=== PATIENT | male | born 1975 | race Caucasian/White ===

== ENCOUNTER 2019-05-14 03:24 | Emergency (ER) | payer BC, OTHER | END 2019-05-14 06:36 | disposition home or self-care (01) | LOC: ER FS 03:24 ==

== ENCOUNTER 2020-12-02 05:03 | Inpatient (IN) | payer BC ==
[~2020-12-02] VITALS: Ht 180.4 cm; Wt 107.6 kg
[2020-12-02] MEDS ORDERED: ASPIRIN 81 MG CHEW (CHILDREN'S ASA) ONE (05:11)
--- NOTE | 2020-12-02 05:14 | ED Chest Pain ---
General Stated Complaint: CHEST PAIN Source: patient (PETER SALGADO MD) History of Present Illness Date Seen by Provider: Dec 02, 2020 Time Seen by Provider: 05:08 Initial Comments 45-year-old male presents with chest pain. He describes the chest pain as a soreness in his left chest wall. Patient reports that started around 3:00 this morning took some Advil and Pepcid. Patient does have a history of high blood pressure and has not taken his blood pressure medicine since Wednesday night because he forgot. He reports that he saw the ornamental iron worker on November 28. They changed his blood pressure medications stopping atenolol and starting Bystolic. They are to have an outpatient stress test scheduled. He is not having nausea vomiting diaphoresis. He has a family history of early heart attack with his father having a heart attack at 48 passing away when he was 52. He had a similar episode of this sort of chest wall pain couple weeks ago, the pain was on and off for couple days and then went away. (SARIKA SMITH DO) Allergies and Home Medications Allergies Coded Allergies: No Known Drug Allergies (Unverified , 05/14/19) Patient Home Medication List Home Medication List Reviewed: Yes (SARIKA SMITH DO) Review of Systems Review of Systems Constitutional: No diaphoresis, No fever, No weakness Respiratory: Denies Cough, Denies Shortness of Air Cardiovascular: Chest Pain; Denies Edema, Denies Irregular Heart Rate, Denies Lightheadedness Gastrointestinal: Denies Abdominal Pain, Denies Nausea, Denies Vomiting Musculoskeletal: back pain Skin: no symptoms reported Psychiatric/Neurological: No Symptoms Reported Endocrine: No Symptoms Reported Hematologic/Lymphatic: No Symptoms Reported (SARIKA SMITH DO) Past Ayxmvhq-Tkewps-Midfrk Hx Past Med/Social Hx: Reviewed Nursing Past Med/Soc Hx (SARIKA SMITH DO) Patient Social History Recent Hopitalizations: No (SARIKA SMITH DO) Seasonal Allergies Seasonal Allergies: No (SARIKA SMITH DO) Past Medical History Surgeries: Yes (Wrist Sx) Respiratory: No Cardiac: Yes Hypertension Neurological: No Genitourinary: No Gastrointestinal: No Musculoskeletal: No Endocrine: Yes Diabetes, Non-Insulin dep HEENT: No Cancer: No Psychosocial: No (SARIKA SMITH DO) Cardiac: Yes High Cholesterol, Hypertension Endocrine: Yes Diabetes, Insulin dep (PETER SALGADO MD) Physical Exam Vital Signs Vital Signs - First Documented 12/02/20 05:04 Temp 35.1 Pulse 93 Resp 23 B/P (MAP) 214/101 (138) Pulse Ox 99 O2 Delivery Room Air (PETER SALGADO MD) Vital Signs Capillary Refill : (SMITH,SARIKA L DO) Height, Weight, BMI Height: 5'11.00" Weight: 220lbs. 0oz. 99.540153dq; BMI Method:Stated General Appearance: No Apparent Distress, Obese Neck: Non Tender Respiratory: Lungs Clear, Normal Breath Sounds, No Accessory Muscle Use Cardiovascular: Regular Rate, Rhythm, No Edema Gastrointestinal: Non Tender, Soft Extremity: Normal Capillary Refill, Normal Inspection Neurologic/Psychiatric: Oriented x3, No Motor/Sensory Deficits, Normal Mood/ Affect, assistant counsel II-XII Norm as Tested Skin: Normal Color, Warm/Dry (SMITH,SARIKA L DO) Progress/Results/Core Measures Results/Orders Lab Results Laboratory Tests Test 12/02/20 05:08 12/02/20 07:27 12/02/20 08:49 Range/Units White Blood Count 7.6 4.3-11.0 10^3/uL Red Blood Count 5.30 4.35-5.85 10^6/uL Hemoglobin 15.7 13.3-17.7 G/DL Hematocrit 44 40-54 % Mean Corpuscular Volume 83 80-99 FL Mean Corpuscular Hemoglobin 30 25-34 PG Mean Corpuscular Hemoglobin Concent 36 32-36 G/DL Red Cell Distribution Width 12.4 10.0-14.5 % Platelet Count 202 130-400 10^3/uL Mean Platelet Volume 10.1 7.4-10.4 FL Immature Granulocyte % (Auto) 1 % Neutrophils (%) (Auto) 53 42-75 % Lymphocytes (%) (Auto) 29 12-44 % Monocytes (%) (Auto) 10 0-12 % Eosinophils (%) (Auto) 6 0-10 % Basophils (%) (Auto) 1 0-10 % Neutrophils # (Auto) 4.0 1.8-7.8 X 10^3 Lymphocytes # (Auto) 2.2 1.0-4.0 X 10^3 Monocytes # (Auto) 0.7 0.0-1.0 X 10^3 Eosinophils # (Auto) 0.5 H 0.0-0.3 10^3/uL Basophils # (Auto) 0.1 0.0-0.1 10^3/uL Immature Granulocyte # (Auto) 0.1 0.0-0.1 10^3/uL Prothrombin Time 11.2 L 12.2-14.7 SEC INR Comment 0.8 0.8-1.4 Activated Partial Thromboplast Time 25 24-35 SEC Sodium Level 135 135-145 MMOL/L Potassium Level 4.0 3.6-5.0 MMOL/L Chloride Level 99 98-107 MMOL/L Carbon Dioxide Level 24 21-32 MMOL/L Anion Gap 12 5-14 MMOL/L Blood Urea Nitrogen 27 H 7-18 MG/DL Creatinine 0.82 0.60-1.30 MG/DL Estimat Glomerular Filtration Rate > 60 BUN/Creatinine Ratio 33 Glucose Level 344 H 70-105 MG/DL Calcium Level 10.2 H 8.5-10.1 MG/DL Corrected Calcium 8.5-10.1 MG/DL Magnesium Level 2.0 1.6-2.4 MG/DL Total Bilirubin 0.5 0.1-1.0 MG/DL Aspartate Amino Transf (AST/SGOT) 22 5-34 U/L Alanine Aminotransferase (ALT/SGPT) 34 0-55 U/L Alkaline Phosphatase 120 40-136 U/L Myoglobin 38.1 10.0-92.0 NG/ML Troponin I < 0.30 < 0.30 <0.30 NG/ML Total Protein 7.4 6.4-8.2 GM/DL Albumin 4.7 H 3.2-4.5 GM/DL Glucometer 256 H 70-110 MG/DL (PETER SALGADO MD) My Orders Orders - PETER SALGADO MD Nitroglycerin Ointment (Nitrobid Ointme (12/02/20 07:20) Morphine Injection (Morphine Injection (12/02/20 08:22) Enoxaparin Injection (Lovenox Injection) (12/02/20 08:22) Metoprolol Succinate (Xl) Tab (Toprol Xl (12/02/20 08:25) Accucheck Stat ONCE (12/02/20 08:36) Insulin (Regular) Human (Novolin R (Per (12/02/20 08:51) (PETER SALGADO MD) Medications Given in ED Current Medications Medications Dose Ordered Sig/Zana Route Start Time Stop Time Status Last Admin Dose Admin Aspirin 324 mg ONCE ONCE PO 12/02/20 05:15 12/02/20 05:17 DC 12/02/20 05:20 324 MG Enalaprilat 2.5 mg ONCE ONCE IV 12/02/20 05:15 12/02/20 05:17 DC 12/02/20 05:20 2.5 MG Metoprolol Tartrate 5 mg ONCE ONCE IV 12/02/20 06:30 12/02/20 06:31 DC 12/02/20 06:21 5 MG Nitroglycerin 0.4 mg UD PRN SL 12/02/20 06:30 12/02/20 09:21 DC 12/02/20 06:21 0.4 MG Orphenadrine Citrate 60 mg ONCE ONCE IV 12/02/20 05:45 12/02/20 05:46 DC 12/02/20 05:40 60 MG (PETER SALGADO MD) Vital Signs/I&O 12/02/20 12/02/20 12/02/20 05:04 05:04 09:15 Temp 35.1 36.1 Pulse 93 82 Resp 23 16 B/P (MAP) 214/101 (138) 161/78 Pulse Ox 99 99 O2 Delivery Room Air Room Air Room Air (PETER SALGADO MD) Progress Progress Note #1: Time: 07:00 Progress Note I assumed care of the patient from Dr. Smith at shift change pending repeat troponin. Pt reports still having intermittent chest pains that are sharp to aching in left chest and aching pain in back and left arm. He has blood pressure that is climbing back up. He reports forgetting to take his medications last night because he fell asleep without taking them. He has had intermittent episodes of pain that prompted his provider to consult Dr. Sanchez with Cardiology from [facility]. Patient has seen him once and is waiting to hear back about further testing and possible stress testing. He is very worried about the recurrent pain episode that woke him up this morning with his family history of cardiac disease in the mid to late 40s. As his blood pressure was over 170 when I was speaking with him I ordered a dose of nitroglycerin paste 1 inch and will see if this helps with his intermittent pain and blood pressure both. Will recheck on patient when the repeat troponin comes back. His telemetry continues to show sinus rhythm without ST elevation or ectopy. Progress Note #2: Time: 08:18 Progress Note Reviewed with patient that his repeat troponin was still <0.3. Pt reports the discomfort in his chest and back were maybe slightly better but he continued to have intermittent pain despite the nitroglycerin. His blood pressures were still fluctuating between 150 and 160s. His telemetry continues to show a sinus rhythm around 80 bpm. He has no ST elevation or ectopy showing on the telemetry monitoring. Discussed options of having him be admitted for further work-up and evaluation with cardiology today versus discharge and having him call Dr. Sanchez and push to have further testing done with him. Patient opted for admit and was okay with being admitted at [facility] for further evaluation and work-up. At 8:[address] Mehta about the patient and he requested an oral beta-suzi to help with blood pressure. At 8:[address] Jules covering for [facility] and she was agreeable with the admission. Will use the chest pain or order such as well as sliding scale insulin order set since he is diabetic and will be n.p.o in anticipation of possible stress test or cardiac testing today. Initially discussed giving 10 units of regular insulin subcu for his elevated glucose however on recheck of his Accu-Chek it was only 256 so I decrease that to 5 units. Pt does report being pain free after Morphine 4 mg IV, lovenox 100 mg subcutaneous. Given Metoprolol XL 50 mg po. Admit to Cardiac step down bed at [facility]. Progress Note #3: Time: 09:15 Progress Note As EMS was here to take patient he reported to them that his pain was a 0.5 out of 10. He refused needing anything for pain. he stated that it was an ache more than a pain. It was in the same area he was having discomfort earlier. Again unclear how much of this is cardiac equivalent with his being diabetic he could have atypical symptoms. I had previously discussed with pt that there are multiple organs and structures in same area that give similar pains to cardiac pain, such as esophageal spasms, stomach and gastritis, liver, gallbladder, pancreas, lungs, chest wall, chest wall lining, aorta. He may need EGD to evaluate for esophagitis/gastritis as well as cardiology evaluation and certainly better glycemic and blood pressure control. monitoring manager still showing sinus rhythm with rate 80. Blood pressure 161/ 78. (PETER SALGADO MD) Initial ECG Impression Date: Dec 02, 2020 Initial ECG Impression Time: 05:07 Initial ECG Rate: 92 Initial ECG Rhythm: Normal Sinus Initial ECG Intervals: Normal Initial ECG Impression: Normal Comment NSR, HR 92. no acute findings (SARIKA SMITH DO) EKG : EKG Time: 06:53 Rate: 78 Rhythm: Normal Sinus ECG Comparisson: Unchanged Comment Sinus rhythm with a heart rate of 78 bpm. [place] interval 211 ms. QT interval 351 ms with a QTc interval of [address] elevation similar to tracing from 5:07 AM which was read as probable early repolarization pattern. (PETER SALGADO MD) Diagnostic Imaging Diagonstic Imaging: Xray Plain Films/CT/US/NM/MRI: chest Comments [facility], [place] NAME: DALLIN LOUIE [employer] REC#: [id number] PT STATUS: REG ER : 1975 PHYSICIAN: SARIKA SMITH DO ADMIT DATE: 12/02/20/ER FS Signed Date of Exam:12/02/20 CHEST 1 VIEW AP/PA ONLY EXAMINATION: Chest radiograph, portable AP view. DATE: 12/02/2020 5:25 AM INDICATION: 45-year-old male, chest pain. COMPARISON: None. FINDINGS: Heart size and mediastinal contours are unremarkable. There is no identified pneumothorax. There is no large pleural effusion. There is no identified focal airspace consolidation. IMPRESSION: No identified acute cardiopulmonary abnormality. Dictated by: Dictated on workstation # [id number] Dict: 12/02/20 0554 Trans: 12/02/20 0555 [id number] Interpreted by: MARY RAMIREZ MD Electronically signed by: MARY RAMIREZ MD 12/02/20 0555 (PETER SALGADO MD) Departure Communication (Admissions) Time/Spoke to Admitting Phy: 08:29 d/w Dr. Jules for [facility] about admit for chest pain and cardiac work up. Dr. Mehta already notified. Will do sliding scale of insulin and give 10 units of regular insulin now while keeping him NPO for possible procedure with cardiology. Time/Spoke to Consulting Phy: 08:23 d/w Dr. Mehta from cardiology to let him know about admit. He requested oral beta suzi of Metoprolol XL since pt has already had aspirin and lovenox and try to remove ntg paste if possible to control blood pressure without it. (PETER SALGADO MD) Impression Primary Impression: Chest pain Qualified Codes: R07.9 - Chest pain, unspecified Additional Impressions: Hypertension Qualified Codes: I10 - Essential (primary) hypertension Type 1 diabetes Qualified Codes: E10.9 - Type 1 diabetes mellitus without complications Disposition: 30 STILL A PATIENT Condition: Stable Admissions Decision to Admit Reason: Admit from ER (General) Decision to Admit/Date: Dec 02, 2020 Time/Decision to Admit Time: 08:29 (PETER SALGADO MD) Departure-Patient Inst. Referrals: KATHY GARCIA (PCP/Family) Primary Care Physician SARIKA SMITH DO Dec 02, 2020 05:13 PETER SALGADO MD Dec 02, 2020 08:34
[2020-12-02] MEDS ORDERED: ENALAPRILAT 1.25 MG/1 ML (VASOTEC) 1 ML VIAL IV ONE (05:15)
[2020-12-02] MEDS ORDERED: ASPIRIN 81 MG CHEW (CHILDREN'S ASA) PO ONE (05:15)
[2020-12-02 05:18] LABS: BASOPHILS # (AUTO) 0.1 10^3/uL (0.0-0.1); BASOPHILS % (AUTO) 1 % (0-10); EOSINOPHILS # (AUTO) 0.5 10^3/uL (0.0-0.3); EOSINOPHILS % (AUTO) 6 % (0-10); HEMATOCRIT 44 % (40-54); HEMOGLOBIN 15.7 G/DL (13.3-17.7); LYMPHOCYTES # (AUTO) 2.2 X 10^3 (1.0-4.0); LYMPHOCYTES % (AUTO) 29 % (12-44); MEAN CORPUSCULAR HEMOGLOBIN 30 PG (25-34); MEAN CORPUSCULAR HGB CONC 36 G/DL (32-36); MEAN CORPUSCULAR VOLUME 83 FL (80-99); MEAN PLATELET VOLUME 10.1 FL (7.4-10.4); MONOCYTES # (AUTO) 0.7 X 10^3 (0.0-1.0); MONOCYTES % (AUTO) 10 % (0-12); NEUTROPHILS % (AUTO) 53 % (42-75); PLATELET COUNT 202 10^3/uL (130-400); WHITE BLOOD COUNT 7.6 10^3/uL (4.3-11.0)
[2020-12-02 05:31] LABS: INR 0.8 (0.8-1.4); PROTHROMBIN TIME PATIENT 11.2 SEC (12.2-14.7)
[2020-12-02 05:36] LABS: BILIRUBIN,TOTAL 0.5 MG/DL (0.1-1.0); BUN/CREATININE RATIO 33; CALCIUM 10.2 MG/DL (8.5-10.1); CARBON DIOXIDE 24 MMOL/L (21-32); CHLORIDE 99 MMOL/L (98-107); CREATININE SERUM 0.82 MG/DL (0.60-1.30); GFR ESTIMATED > 60; GLUCOSE 344 MG/DL (70-105); SODIUM 135 MMOL/L (135-145)
[2020-12-02 05:37] LABS: ALANINE AMINOTRANSFERASE 34 U/L (0-55); ALBUMIN 4.7 GM/DL (3.2-4.5); ALKALINE PHOSPHATASE 120 U/L (40-136); TOTAL PROTEIN 7.4 GM/DL (6.4-8.2)
[2020-12-02] MEDS: ORPHENADRINE 60 MG/2 ML (NORFLEX) AMP (ED ONLY) IM STA ×2 (05:43→05:49)
[2020-12-02] MEDS ORDERED: ORPHENADRINE 60 MG/2 ML (NORFLEX) AMP (ED ONLY) IV ONE (05:45)
--- NOTE | 2020-12-02 05:56 | Diagnostic Imaging Report ---
EXAMINATION: Chest radiograph, portable AP view. DATE: 12/02/2020 5:25 AM INDICATION: 45-year-old male, chest pain. COMPARISON: None. FINDINGS: Heart size and mediastinal contours are unremarkable. There is no identified pneumothorax. There is no large pleural effusion. There is no identified focal airspace consolidation. IMPRESSION: No identified acute cardiopulmonary abnormality. Dictated by: Dictated on workstation # [id number]
[2020-12-02] MEDS ORDERED: meTOprolol 5 MG/5 ML (LOPRESSOR) VIAL IV ONE (06:30)
[2020-12-02] MEDS ORDERED: NITROGLYCERIN 0.4 MG SL TABS BTL 25'S SL PRN ×2 (06:30→11:30)
[2020-12-02] MEDS ORDERED: NITROGLYCERIN 2% OINT 1 GM UNIT DOSE PACKET TOP STA (07:20)
[2020-12-02] MEDS ORDERED: ENOXAPARIN 100 MG/1 ML (LOVENOX) SYR SC STA (08:22)
[2020-12-02] MEDS ORDERED: morphine INJ 10 MG/ML 1ML (SYR OR VIAL) IVP STA ×2 (08:22→09:16)
[2020-12-02] MEDS ORDERED: meTOproloL SUCCINATE 50 MG (TOPROL XL) TAB PO STA (08:25)
[2020-12-02] MEDS ORDERED: inSUlin (REGULAR) HUMAN 1 UNIT/0.01 ML (CHARGE PER UNIT) SC STA ×2 (08:36→08:51)
[2020-12-02] MEDS ORDERED: ONDANSETRON 4 MG/2 ML (SDV) Z0FRAN IVP STA (09:16)
[2020-12-02] MEDS ORDERED: NS IV 1000 ML 1,000 ML IV SCH (10:30)
--- NOTE | 2020-12-02 11:13 | History & Physical-Hospitalist ---
History of Present Illness HPI/Chief Complaint CC: Chest pain HPI: This is a 45yoWM Pt of [facility] who presented to the [facility] with chest pain, he reports it is sub-sternal and radiates into his back. His BP was very elevated and he had a very high sugar of 300 and he forgot to take his BP medication last night. He has risk factors consistent with acute coronary syndrome so cardiology will be consulted. I will go ahead and restart his home medications and risk stratification will be performed by cardiology. Source: patient Exam Limitations: no limitations Date Seen 12/02/20 Time Seen by a Provider: 11:00 Attending Physician Talia Jules DO PCP Regina Rodriguez Referring Physician Date of Admission Dec 02, 2020 at 08:29 Home Medications & Allergies Home Medications Reviewed patient Home Medication Reconciliation performed by pharmacy medication reconciliations restaurant maintenance technician and/or nursing. Patients Allergies have been reviewed. Allergies Allergies Coded Allergies No Known Drug Allergies (Unverified05/14/19) Past Brrkwsz-Lrbejk-Ukeykr Hx Past Med/Social Hx: Reviewed Nursing Past Med/Soc Hx, Reviewed and Corrections made Patient Social History Marrital Status: Employed/Student: employed Alcohol Use: Denies Use Recreational Drug Use: No Smoking Status: Former Smoker 2nd Hand Smoke Exposure: No Recent Foreign Travel: No Contact w/other who traveled: No Recent Hopitalizations: No Recent Infectious Disease Expo: No Immunizations Up To Date Date of Influenza Vaccine: Aug 01, 2020 Seasonal Allergies Seasonal Allergies: No Past Medical History Surgeries: Tonsillectomy Cardiac: High Cholesterol, Hypertension Endocrine: Diabetes, Insulin dep History of Blood Disorders: No Review of Systems Constitutional: see HPI Cardiovascular: chest pain Physical Exam Physical Exam Vital Signs Vital Signs - First Documented 12/02/20 12/02/20 05:04 11:34 Temp 35.1 Pulse 93 Resp 23 B/P (MAP) 214/101 (138) Pulse Ox 99 O2 Delivery Room Air O2 Flow Rate 2.00 Capillary Refill : Less Than 3 Seconds Height, Weight, BMI Height: 5'11.00" Weight: 220lbs. 0oz. 99.719499tj; 33.06 BMI Method:Stated General Appearance: No Apparent Distress, Chronically ill Eyes: Right Eye Normal Inspection, Right Eye PERRL HEENT: PERRL/EOMI, Normal ENT Inspection, Pharynx Normal, Moist Mucous Membranes Neck: Full Range of Motion, Normal Inspection, Non Tender Respiratory: Chest Non Tender, Lungs Clear, Normal Breath Sounds, No Accessory Muscle Use, No Respiratory Distress Cardiovascular: Regular Rate, Rhythm, No Edema, No Gallop, No JVD, No Murmur, Normal Peripheral Pulses Gastrointestinal: Normal Bowel Sounds, No Organomegaly, No Pulsatile Mass, Non Tender, Soft Back: Normal Inspection, No CVA Tenderness, No Vertebral Tenderness Extremity: Normal Capillary Refill, Normal Inspection, Normal Range of Motion, Non Tender, No Calf Tenderness, No Pedal Edema Neurologic/Psychiatric: Alert, Oriented x3, No Motor/Sensory Deficits, Normal Mood/Affect Skin: Normal Color, Warm/Dry Lymphatic: No Adenopathy Results Results/Procedures Labs Laboratory Tests 12/02/20 05:08 12/03/20 05:25 Patient resulted labs reviewed. Assessment/Plan Admission Diagnosis Assessment: Chest pain DM OOC HTN OOC HLP Obesity Former smoker Plan: DM management Cardiology consultation Admission Status: Observation Diagnosis/Problems Diagnosis/Problems (1) Diabetes (2) Chest pain Status: Acute Qualifiers: Chest pain type: unspecified Qualified Codes: R07.9 - Chest pain, unspecified (3) Hypertension Status: Acute Qualifiers: Hypertension type: essential hypertension Qualified Codes: I10 - Essential (primary) hypertension TALIA JULES DO Dec 02, 2020 11:13
[2020-12-02] MEDS ORDERED: morphine INJ 4 MG/ML 1 ML (VIAL/SYRINGE) ONE (11:18)
[2020-12-02] MEDS ORDERED: morphine INJ 4 MG/ML 1 ML (VIAL/SYRINGE) IV PRN (11:30)
[2020-12-02] MEDS ORDERED: ONDANSETRON 4 MG/2 ML (SDV) Z0FRAN IVP PRN (11:30)
[2020-12-02] MEDS: morphine INJ 4 MG/ML 1 ML (VIAL/SYRINGE) IVP PRN (11:30)
[2020-12-02] MEDS: inSUlin ASPART (NovoLOG) 1 UNIT/0.01 ML (CHARGE PER UNIT) SC SCH ×3 (11:30→20:41)
[2020-12-02 11:34] VITALS: BP 122/88
--- NOTE | 2020-12-02 11:58 | Consultation-Cardiology ---
HPI-Cardiology Cardiology Consultation: Date of Consultation 12/02/20 Time Seen by a Provider: 11:20 Date of Admission 12-02-20 Attending Physician Talia Burnett DO Admitting Physician Regina Rodriguez Consulting Physician AMARJIT MEDEIROS HPI: Chief Complaint: Chest pain Mr. Nuno is a 45 yr old male admitted to 512 from the ED with c/o CP. He reports he has had constant left sided, localized chest pain, which radiates through to his back. He describes it as a cramping sensation. He reports it started approx 1 1/2 mos ago. He states it is present all the time unless he is busy and doesn't think about it then its not there. He states this morning he woke up to go to the bathroom. He noticed the chest pain as before. He states he took Ibuprofen and TUMS which did help his symptoms. He took his BP and noted it to be in the 180's systolic. The chest pain was constant and shooting through to his back. He states he went back to bed, but was worried. He recheck his BP and it was in the 170's. He kept checking his BP and it never went below 160 systolic so he came to the ED. He has not been taking his BP meds routinely as ordered. He did not take them this morning. 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 He denies any SOB, diaphoresis, syncope or near syncope this morning. He reports he felt his HR was elevated this morning. Chest pain is reproducible with gentle palpation. He reports he has seen a specifications writer last week, Dr. Sanchez from [facility] and was to have a stress test, however it has not been scheduled yet. Review of Systems-Cardiology Review of Systems Constitutional: No chills, No fever, No malaise Eyes: No vision change Ears/Nose/Throat: No epistaxis, No recent hearing loss, No ulcerations Respiratory: As described under HPI Cardiovascular: As described under HPI Gastrointestinal: No constipation, No diarrhea, No nausea, No vomiting Genitourinary: No dysuria, No hematuria Musculoskeletal: As describe under HPI Skin: No rash on exposed areas, No ulcerations on exposed areas Psychiatric/Neurological: No focal weakness, No syncope Hematologic: No bleeding abnormalities JDN-Hagalw-Dwsper Hx Patient Social History Smoking Status: Former Smoker 2nd Hand Smoke Exposure: No Have you traveled recently?: No Alcohol Use?: Yes Pt feels they are or have been: No Immunizations Up To Date Date of Influenza Vaccine: Aug 01, 2020 Past Medical History PMH As described under Assessment. Family Medical History Family Medical History: He reports his father had a heart attack at age 48. Allergies and Home Medications Allergies Coded Allergies: No Known Drug Allergies (Unverified , 05/14/19) Home Medications Cinnamon Bark 500 Mg Capsule, 500 MG PO DAILY, (Reported) Dapagliflozin Propanediol 10 Mg Tablet, 10 MG PO DAILY, (Reported) Glyburide 5 Mg Tablet, 5 MG PO DAILY, (Reported) LAST FILLED 03-18-2020 #90/90 DAY SUPPLY Insulin Glargine/Lixisenatide 3 Ml Insuln.pen, 30 UNITS SC DAILY, (Reported) Lisinopril/Hydrochlorothiazide 1 Each Tablet, 1 EA PO BID, (Reported) Metformin HCl 1,000 Mg Tablet, 1,000 MG PO BID, (Reported) Multivitamin 1 Each Tablet, 1 EACH PO DAILY, (Reported) Nebivolol HCl 5 Mg Tablet, 5 MG PO HS, (Reported) Pantoprazole Sodium 40 Mg Tablet.dr, 40 MG PO DAILY Prescribed by: TALIA BURNETT on 12/03/201111 Simvastatin 40 Mg Tablet, 40 MG PO HS, (Reported) LAST FILLED 07-14-2020 #90/90 DAY SUPPLY Sucralfate 1 Gm Tablet, 1 GM PO ACHS Prescribed by: TALIA BURNETT on 12/03/201111 Ubidecarenone 100 Mg Capsule, 100 MG PO DAILY, (Reported) Zinc 50 Mg Tablet, 50 MG PO DAILY, (Reported) Physical Exam-Cardiology Physical Exam Vital Signs/I&O 12/03/20 12/03/20 12/03/20 12/03/20 00:10 01:00 03:51 06:41 Temp 36.0 36.2 Pulse 76 67 75 80 Resp 20 20 B/P (MAP) 120/63 (82) 151/81 (104) Pulse Ox 96 95 O2 Delivery Room Air Room Air 12/03/20 12/03/20 08:00 08:00 Pulse 83 Resp 18 B/P (MAP) 173/79 (110) Pulse Ox 99 99 O2 Delivery Room Air 12/03/20 00:00 Intake Total 2045 ml Output Total 1 ml Balance 2044 ml Capillary Refill : Less Than 3 Seconds Constitutional: AAO x 3, well-developed, well-nourished HEENT: PERRL, hearing is well preserved, oral hygience is good Neck: No carotid bruit; carotid pulses are 2 + bilaterally Respiratory: No accessory muscle use, No respiratory distress; chest expansion is symmetric, chest is bilaterally symmetric, lungs clear to auscultation Cardiovascular: regular rate-rhythm; No JVD; S1 and S2 Gastrointestinal: No tender; soft, round Extremities: no lower extremity edema bilateral Neurologic/Psychiatric: grossly intact (moves all extremities) Skin: No rash on exposed areas, No ulcerations on exposed areas Data Review Labs Laboratory Tests 12/02/20 16:31: Glucometer 194H 12/02/20 19:58: Glucometer 225H 12/03/20 05:25: White Blood Count 6.4, Red Blood Count 4.67, Hemoglobin 13.9, Hematocrit 39L, Mean Corpuscular Volume 84, Mean Corpuscular Hemoglobin 30, Mean Corpuscular Hemoglobin Concent 36, Red Cell Distribution Width 12.5, Platelet Count 178, Mean Platelet Volume 10.7, Immature Granulocyte % (Auto) 1, Neutrophils (%) (Auto) 58, Lymphocytes (%) (Auto) 25, Monocytes (%) (Auto) 10, Eosinophils (%) (Auto) 6, Basophils (%) (Auto) 1, Neutrophils # (Auto) 3.7, Lymphocytes # (Auto) 1.6, Monocytes # (Auto) 0.6, Eosinophils # (Auto) 0.4H, Basophils # (Auto) 0.1, Immature Granulocyte # (Auto) 0.0, Sodium Level 137, Potassium Level 4.4, Chloride Level 106, Carbon Dioxide Level 23, Anion Gap 8, Blood Urea Nitrogen 17, Creatinine 0.83, Estimat Glomerular Filtration Rate > 60, BUN/Creatinine Rat io 20, Glucose Level 258H, Calcium Level 8.8, Corrected Calcium 8.9, Total Bilirubin 0.5, Aspartate Amino Transf (AST/SGOT) 27, Alanine Aminotransferase (ALT/SGPT) 42, Alkaline Phosphatase 68, Total Protein 6.1L, Albumin 3.9, Triglycerides Level 255H, Cholesterol Level 146, LDL Cholesterol Direct 69, VLDL Cholesterol 51H, HDL Cholesterol 36L Radiology NAME: DALLIN NUNO MED REC#: [id number] PT STATUS: REG ER : 1975 PHYSICIAN: SARIKA SMITH DO ADMIT DATE: 12/02/20/ER FS Signed Date of Exam:12/02/20 CHEST 1 VIEW AP/PA ONLY EXAMINATION: Chest radiograph, portable AP view. DATE: 12/02/2020 5:25 AM INDICATION: 45-year-old male, chest pain. COMPARISON: None. FINDINGS: Heart size and mediastinal contours are unremarkable. There is no identified pneumothorax. There is no large pleural effusion. There is no identified focal airspace consolidation. IMPRESSION: No identified acute cardiopulmonary abnormality. Dictated by: Dictated on workstation # [id number] Dict: 12/02/20 0554 Trans: 12/02/20 0555 [id number] Interpreted by: MARY RAMIREZ MD Electronically signed by: MARY RAMIREZ MD 12/02/20 0555 ECG Impression ECG Initial ECG Rhythm: Normal Sinus A/P-Cardiology Assessment/Admission Diagnosis Chest pain of undetermined etiology HTN HLD DM 2 Quit smoking 2 yrs ago GERD Discussion and Recomendations Chest pain of undetermined etiology - no evidence of ACS thus far Symptoms with features of musculoskeletal discomfort - advise NSAID tx Continue BB for uncontrolled hypertension Advise MPI to eval perfusion Advise echcardiogram to eval structure and function Monitor lab Further recs will be based on his hospital course We would like to thank medical services for this consult AMARJIT REECE Dec 02, 2020 11:58
[2020-12-02] MEDS ORDERED: IBUPROFEN 600 MG (MOTRIN) TAB PO NR (12:00)
[2020-12-02] MEDS ORDERED: REGADENOSON 0.4 MG/5 ML SYR (LEXISCAN) IV ONE (12:00)
[2020-12-02 14:45] VITALS: BP 150/77
[2020-12-02] MEDS: IBUPROFEN 600 MG (MOTRIN) TAB PO SCH ×2 (15:02→21:38)
[2020-12-02 16:00] VITALS: BP 133/67
[2020-12-02] MEDS ORDERED: INSU3INS2 SC (16:07)
[2020-12-02] MEDS ORDERED: CINN500C2 PO (16:07)
[2020-12-02] MEDS ORDERED: GLBR5T PO (16:07)
[2020-12-02] MEDS ORDERED: MULT-1136 PO (16:07)
[2020-12-02] MEDS ORDERED: LISI1TAB46 PO (16:07)
[2020-12-02] MEDS ORDERED: ZINC50TA58 PO (16:07)
[2020-12-02] MEDS ORDERED: SIMV40TA25 PO (16:07)
[2020-12-02] MEDS ORDERED: DAPA10TA PO (16:07)
[2020-12-02] MEDS ORDERED: METF-399 PO (16:07)
[2020-12-02] MEDS ORDERED: UBID100C17 PO (16:07)
[2020-12-02] MEDS ORDERED: NEBI5TAB8 PO (16:07)
--- NOTE | 2020-12-02 16:08 | NUR ---
SPOKE WITH PT, WENT THRU THE EXT MED HISTORY AND CALLED [facility] TO COMPLETE THE MED REC BYSTOLIC 5MG LAST FILLED 11-28-2019 #90/90DS- GETS FROM [facility] SIMVASTATIN 40MG (LAST FILLED 07-14-2020 #90) AND GLYBURIDE 5MG (LAST FILLED 03-18-2020 #90) ARE BOTH PAST DUE FOR REFILLS- I INCLUDED THE FILL DATE ON THE MED REC OTC MEDS: [employer] CINNAMON COQ10 ZINC
--- NOTE | 2020-12-02 17:03 | NUR ---
Initial visit: pt's family lives on his salary. 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 Furnace Maintenance offered active listening as pt shared concerns, offered gentle guidance for stressors. Pt states his personal jessenia is a source of strength as he engages in prayer about his needs and concerns. No jessenia community at this time. Strong emotional support provided by family.
--- NOTE | 2020-12-02 17:38 | Consultation-Cardiology ---
HPI-Cardiology Cardiology Consultation: Date of Consultation 12/02/20 Time Seen by a Provider: 12:10 Date of Admission Attending Physician Talia Jules DO Admitting Physician Regina Rodriguez Consulting Physician AMOS LOGAN MD, MA, FACP, FACC, FSCAI, CCDS HPI: Chief Complaint: CC: Chest pain HPI Mr. Nuno is a 45 yr old male admitted to 512 from the ED with c/o CP. He reports he has had constant left sided, localized chest pain, which radiates through to his back. He describes it as a cramping sensation. He reports it started approx 1 1/2 mos ago. He states it is present all the time unless he is busy and doesn't think about it then its not there. He states this morning he woke up to go to the bathroom. He noticed the chest pain as before. He states he took Ibuprofen and TUMS which did help his symptoms. He took his BP and noted it to be in the 180's systolic. The chest pain was constant and shooting through to his back. He states he went back to bed, but was worried. He recheck his BP and it was in the 170's. He kept checking his BP and it never went below 160 systolic so he came to the ED. He has not been taking his BP meds routinely as ordered. He did not take them this morning. 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 He denies any SOB, diaphoresis, syncope or near syncope this morning. He reports he felt his HR was elevated this morning. Chest pain is reproducible with gentle palpation. He reports he has seen a gas cutting machine operator last week, Dr. Sanchez from [facility] and was to have a stress test, however it has not been scheduled yet. Review of Systems-Cardiology Review of Systems Constitutional: No chills, No fever, No malaise Eyes: No vision change Ears/Nose/Throat: No epistaxis, No recent hearing loss, No ulcerations Respiratory: As described under HPI Cardiovascular: As described under HPI Gastrointestinal: No constipation, No diarrhea, No nausea, No vomiting Genitourinary: No dysuria, No hematuria Musculoskeletal: As describe under HPI Skin: No rash on exposed areas, No ulcerations on exposed areas Psychiatric/Neurological: No focal weakness, No syncope Hematologic: No bleeding abnormalities FRN-Stenfm-Rnzkkk Hx Patient Social History Smoking Status: Former Smoker 2nd Hand Smoke Exposure: No Have you traveled recently?: No Alcohol Use?: Yes Pt feels they are or have been: No Immunizations Up To Date Date of Influenza Vaccine: Aug 01, 2020 Past Medical History PMH As described under Assessment. Family Medical History Family Medical History: He reports his father had a heart attack at age 48. Allergies and Home Medications Allergies Coded Allergies: No Known Drug Allergies (Unverified , 05/14/19) Home Medications Cinnamon Bark 500 Mg Capsule, 500 MG PO DAILY, (Reported) Dapagliflozin Propanediol 10 Mg Tablet, 10 MG PO DAILY, (Reported) Glyburide 5 Mg Tablet, 5 MG PO DAILY, (Reported) LAST FILLED 03-18-2020 #90/90 DAY SUPPLY Insulin Glargine/Lixisenatide 3 Ml Insuln.pen, 30 UNITS SC DAILY, (Reported) Lisinopril/Hydrochlorothiazide 1 Each Tablet, 1 EA PO BID, (Reported) Metformin HCl 1,000 Mg Tablet, 1,000 MG PO BID, (Reported) Multivitamin 1 Each Tablet, 1 EACH PO DAILY, (Reported) Nebivolol HCl 5 Mg Tablet, 5 MG PO HS, (Reported) Simvastatin 40 Mg Tablet, 40 MG PO HS, (Reported) LAST FILLED 07-14-2020 #90/90 DAY SUPPLY Ubidecarenone 100 Mg Capsule, 100 MG PO DAILY, (Reported) Zinc 50 Mg Tablet, 50 MG PO DAILY, (Reported) Patient Home Medication List Home Medication List Reviewed: Yes Physical Exam-Cardiology Physical Exam Vital Signs/I&O 12/02/20 12/02/20 12/02/20 12/02/20 09:15 11:34 12:15 12:35 Temp 36.1 36.4 Pulse 82 84 79 Resp 16 20 B/P (MAP) 161/78 122/88 (99) Pulse Ox 99 97 O2 Delivery Room Air Nasal Cannula O2 Flow Rate 2.00 12/02/20 12/02/20 14:45 16:00 Temp 36.3 36.7 Pulse 81 78 Resp 18 18 B/P (MAP) 150/77 (101) 133/67 (89) Pulse Ox 98 97 O2 Delivery Room Air Room Air Capillary Refill : Less Than 3 Seconds Constitutional: AAO x 3, well-developed, well-nourished HEENT: PERRL, hearing is well preserved, oral hygience is good Neck: No carotid bruit; carotid pulses are 2 + bilaterally Respiratory: No accessory muscle use, No respiratory distress; chest expansion is symmetric, chest is bilaterally symmetric, lungs clear to auscultation Cardiovascular: regular rate-rhythm; No JVD; S1 and S2 Gastrointestinal: No tender; soft, round Extremities: no lower extremity edema bilateral Neurologic/Psychiatric: oriented x 3, other (moves all limbs equally) Skin: No rash on exposed areas, No ulcerations on exposed areas Data Review Labs Laboratory Tests 12/02/20 05:08: White Blood Count 7.6, Red Blood Count 5.30, Hemoglobin 15.7, Hematocrit 44, Mean Corpuscular Volume 83, Mean Corpuscular Hemoglobin 30, Mean Corpuscular Hemoglobin Concent 36, Red Cell Distribution Width 12.4, Platelet Count 202, Mean Platelet Volume 10.1, Immature Granulocyte % (Auto) 1, Neutrophils (%) (Auto) 53, Lymphocytes (%) (Auto) 29, Monocytes (%) (Auto) 10, Eosinophils (%) (Auto) 6, Basophils (%) (Auto) 1, Neutrophils # (Auto) 4.0, Lymphocytes # (Auto) 2.2, Monocytes # (Auto) 0.7, Eosinophils # (Auto) 0.5H, Basophils # (Auto) 0.1, Immature Granulocyte # (Auto) 0.1, Prothrombin Time 11.2L, INR Comment 0.8, Activated Partial Thromboplast Time 25, Sodium Level 135, Potassium Level 4.0, Chloride Level 99, Carbon Dioxide Level 24, Anion Gap 12, Blood Urea Nitrogen 27H, Creatinine 0.82, Estimat Glomerular Filtration Rate > 60, BUN/Creatinine Ratio 33, Glucose Level 344H, Calcium Level 10.2H, Corrected Calcium , Magnesium Level 2.0, Total Bilirubin 0.5, Aspartate Amino Transf (AST/SGOT) 22, Alanine Aminotransferase (ALT/SGPT) 34, Alkaline Phosphatase 120, Myoglobin 38.1, Troponin I < 0.30, Total Protein 7.4, Albumin 4.7H 12/02/20 07:27: Troponin I < 0.30 12/02/20 08:49: Glucometer 256H 12/02/20 10:41: Glucometer 271H 12/02/20 16:31: Glucometer 194H Laboratory Tests 12/02/20 05:08 A/P-Cardiology Assessment/Admission Diagnosis Chest pain of undetermined etiology HTN HLD DM 2 Quit smoking 2 yrs ago GERD Discussion and Recomendations Chest pain of undetermined etiology - no evidence of ACS thus far Symptoms with features of musculoskeletal discomfort - advise NSAID tx Continue BB for uncontrolled hypertension Advise MPI to eval perfusion Advise echcardiogram to eval structure and function Monitor lab Further recs will be based on his hospital course We would like to thank Medical services for this consult AMOS LOGAN MD FACP FACC CCDS Dec 02, 2020 17:38
[2020-12-02 19:55] VITALS: BP 118/58
[2020-12-02] MEDS: HYDROCHLOROTHIAZIDE 12.5 MG (HCTZ) CAP PO SCH (20:40)
[2020-12-02] MEDS: lisINopril 20 MG (PRINIVIL) TABLET PO SCH (20:40)
[2020-12-02] MEDS: CARVEDILOL 12.5 MG (COREG) TABLET PO SCH (20:40)
[2020-12-02] MEDS ORDERED: SIMvastatin 40 MG (ZOCOR) TAB PO SCH (21:00)
[2020-12-02] MEDS ORDERED: NEBIVOLOL 5 MG TAB (NON-FORMULARY) PO SCH (21:00)
[2020-12-03 00:10] VITALS: BP 120/63
[2020-12-03 03:51] VITALS: BP 151/81
[2020-12-03] MEDS: IBUPROFEN 600 MG (MOTRIN) TAB PO SCH ×2 (05:28→12:30)
[2020-12-03] MEDS: morphine INJ 4 MG/ML 1 ML (VIAL/SYRINGE) IVP PRN ×2 (05:33→10:43)
[2020-12-03 05:56] LABS: BASOPHILS # (AUTO) 0.1 10^3/uL (0.0-0.1); BASOPHILS % (AUTO) 1 % (0-10); EOSINOPHILS # (AUTO) 0.4 10^3/uL (0.0-0.3); EOSINOPHILS % (AUTO) 6 % (0-10); HEMATOCRIT 39 % (40-54); HEMOGLOBIN 13.9 g/dL (13.3-17.7); LYMPHOCYTES # (AUTO) 1.6 10^3/uL (1.0-4.0); LYMPHOCYTES % (AUTO) 25 % (12-44); MEAN CORPUSCULAR HEMOGLOBIN 30 pg (25-34); MEAN CORPUSCULAR HGB CONC 36 g/dL (32-36); MEAN CORPUSCULAR VOLUME 84 fL (80-99); MEAN PLATELET VOLUME 10.7 fL (9.0-12.2); MONOCYTES # (AUTO) 0.6 10^3/uL (0.0-1.0); MONOCYTES % (AUTO) 10 % (0-12); NEUTROPHILS # (AUTO) 3.7 10^3/uL (1.8-7.8); NEUTROPHILS % (AUTO) 58 % (42-75); PLATELET COUNT 178 10^3/uL (130-400); WHITE BLOOD COUNT 6.4 10^3/uL (4.3-11.0)
[2020-12-03 06:03] LABS: CHLORIDE 106 MMOL/L (98-107); POTASSIUM 4.4 MMOL/L (3.6-5.0); SODIUM 137 MMOL/L (135-145)
[2020-12-03 06:04] LABS: ALBUMIN 3.9 GM/DL (3.2-4.5)
[2020-12-03 06:05] LABS: CALCIUM 8.8 MG/DL (8.5-10.1); TRIGLYCERIDES 255 MG/DL (<150); VLDL CHOLESTEROL 51 MG/DL (5-40)
[2020-12-03 06:06] LABS: GLUCOSE 258 MG/DL (70-105); TOTAL PROTEIN 6.1 GM/DL (6.4-8.2)
[2020-12-03 06:07] LABS: CARBON DIOXIDE 23 MMOL/L (21-32)
[2020-12-03 06:08] LABS: BILIRUBIN,TOTAL 0.5 MG/DL (0.1-1.0)
[2020-12-03 06:10] LABS: ALKALINE PHOSPHATASE 68 U/L (40-136); CREATININE SERUM 0.83 MG/DL (0.60-1.30); GFR ESTIMATED > 60
[2020-12-03 06:11] LABS: BUN/CREATININE RATIO 20; CHOLESTEROL 146 MG/DL (< 200)
[2020-12-03 06:12] LABS: HDL CHOLESTEROL 36 MG/DL (40-60)
[2020-12-03 06:13] LABS: ALANINE AMINOTRANSFERASE 42 U/L (0-55)
[2020-12-03] MEDS: inSUlin ASPART (NovoLOG) 1 UNIT/0.01 ML (CHARGE PER UNIT) SC SCH ×2 (06:58→12:32)
[2020-12-03] MEDS ORDERED: glyBURIDE 5 MG (MICRONASE) TAB PO SCH (07:00)
[2020-12-03] MEDS ORDERED: CATHETER FLUSH 10 ML SYR IV PRN (07:45)
[2020-12-03 08:00] VITALS: BP 173/79
[2020-12-03] MEDS ORDERED: REGADENOSON 0.4 MG/5 ML SYR (LEXISCAN) IV ONE (08:46)
[2020-12-03] MEDS ORDERED: CARVEDILOL 12.5 MG (COREG) TABLET PO SCH (09:00)
[2020-12-03] MEDS ORDERED: ASPIRIN E.C. 81 MG (ECOTRIN) TAB PO SCH (09:00)
[2020-12-03] MEDS ORDERED: NON-FORMULARY MEDICATION 1 EA EA (Insulin Glargine/Lixisenatide (Soliqua 100 Unit-33 Mcg/m SC SCH (09:00)
--- NOTE | 2020-12-03 10:33 | NUR ---
Stress test completed at this time, patient back to room 411-1 via w/c.
[2020-12-03] MEDS: CARVEDILOL 12.5 MG (COREG) TABLET PO SCH (10:36)
[2020-12-03] MEDS: lisINopril 20 MG (PRINIVIL) TABLET PO SCH (10:36)
[2020-12-03] MEDS: HYDROCHLOROTHIAZIDE 12.5 MG (HCTZ) CAP PO SCH (10:36)
[2020-12-03] MEDS ORDERED: PANT40TA2 PO (11:12)
[2020-12-03] MEDS ORDERED: SUCR1TAB36 PO (11:12)
[2020-12-03] MEDS ORDERED: PANTOPRAZOLE 40 MG (PROTONIX) TAB PO ONE ×2 (11:15→11:30)
--- NOTE | 2020-12-03 11:32 | Progress Note - Cardiology ---
Cardiology SOAP Progress Note Subjective: No new c/o Continues to c/o chest discomfort reproducible with palpation Objective: I&O/Vital Signs 12/03/20 12/03/20 12/03/20 12/03/20 00:10 01:00 03:51 06:41 Temp 36.0 36.2 Pulse 76 67 75 80 Resp 20 20 B/P (MAP) 120/63 (82) 151/81 (104) Pulse Ox 96 95 O2 Delivery Room Air Room Air 12/03/20 12/03/20 08:00 08:00 Pulse 83 Resp 18 B/P (MAP) 173/79 (110) Pulse Ox 99 99 O2 Delivery Room Air 12/03/20 00:00 Intake Total 2045 ml Output Total 1 ml Balance 2044 ml Weight (Pounds): 220 Weight (Ounces): 0 Weight (Calculated Kilograms): [id number] Constitutional: AAO x 3, well-developed, well-nourished Respiratory: No accessory muscle use, No respiratory distress; chest expansion is symmetric, chest is bilaterally symmetric, lungs clear to auscultation Cardiovascular: regular rate-rhythm; No JVD; S1 and S2 Gastrointestional: No tender; soft, round Extremities: no lower extremity edema bilateral Neurologic/Psychiatric: oriented x 3, other (moves all limbs equally) Skin: No rash on exposed areas, No ulcerations on exposed areas Results/Procedures: Labs Laboratory Tests 12/02/20 16:31: Glucometer 194H 12/02/20 19:58: Glucometer 225H 12/03/20 05:25: White Blood Count 6.4, Red Blood Count 4.67, Hemoglobin 13.9, Hematocrit 39L, Mean Corpuscular Volume 84, Mean Corpuscular Hemoglobin 30, Mean Corpuscular Hemoglobin Concent 36, Red Cell Distribution Width 12.5, Platelet Count 178, Mean Platelet Volume 10.7, Immature Granulocyte % (Auto) 1, Neutrophils (%) (Auto) 58, Lymphocytes (%) (Auto) 25, Monocytes (%) (Auto) 10, Eosinophils (%) (Auto) 6, Basophils (%) (Auto) 1, Neutrophils # (Auto) 3.7, Lymphocytes # (Auto) 1.6, Monocytes # (Auto) 0.6, Eosinophils # (Auto) 0.4H, Basophils # (Auto) 0.1, Immature Granulocyte # (Auto) 0.0, Sodium Level 137, Potassium Level 4.4, Chloride Level 106, Carbon Dioxide Level 23, Anion Gap 8, Blood Urea Nitrogen 17, Creatinine 0.83, Estimat Glomerular Filtration Rate > 60, BUN/Creatinine Ratio 20, Glucose Level 258H, Calcium Level 8.8, Corrected Calcium 8.9, Total Bilirubin 0.5, Aspartate Amino Transf (AST/SGOT) 27, Alanine Aminotransferase (ALT/SGPT) 42, Alkaline Phosphatase 68, Total Protein 6.1L, Albumin 3.9, Triglycerides Level 255H, Cholesterol Level 146, LDL Cholesterol Direct 69, VLDL Cholesterol 51H, HDL Cholesterol 36L Laboratory Tests 12/02/20 05:08 12/03/20 05:25 A/P: Assessment: Chest pain of undetermined etiology Echocardiogram of Dec 02, 2020 showed LVEF 55-60%. LA mildly to mod dilated. PASP 20-30 mmHg HTN HLD DM 2 Quit smoking 2 yrs ago GERD Non-compliant with medications Plan: Chest pain of undetermined etiology - no evidence of ACS thus far Symptoms with features of musculoskeletal discomfort - continue NSAID tx Continue current regimen Add PPI MPI pending Advise compliance with medications and instructions AMARJIT REECE Dec 03, 2020 11:31
[2020-12-03] MEDS ORDERED: KETOROLAC 30 MG/ML VIAL ONE (11:33)
[2020-12-03] MEDS ORDERED: KETOROLAC 30 MG/ML VIAL IVP NR (11:37)
[2020-12-03 12:00] VITALS: BP 167/79
--- NOTE | 2020-12-03 12:48 | NUR ---
"RD ASSESSMENT PMHx: hypercholesterolemia; HTN; DM; PT INTERACTION: Pt was awake and pleasant during nutrition assessment. Pt states current appetite is good. Note pt currently NPO, per chart review. Note prior to going NPO, avg PO intake was 100% meals, per chart review. Pt states following a regular diet at home, and has no issues with chewing/swallowing food. Pt states some recent issues with nausea, and that his last BM was 2/7. Note pt not currently on bowel regimen per chart review. Pt states no recent wt changes. Note unable to determine recent wt hx, per chart review. Pt states current DM management is pretty good. Note unable to determine recent HbA1c, per chart review. Est. kcal needs: [id number] kcal | 15-20 kcal/kg Est. Pro needs: 86-107 g Pro | 0.8-1.0 g Pro/kg PES STATEMENT: Inadequate oral intake (NI-2.1) related to nausea, and NPO status, as evidenced by chart review and pt interview. INTERVENTION: Note pt currently NPO, per chart review. Would recommend diet advancement to consistent CHO diet when medically able and as tolerated. Will continue to follow and reassess as pt needs, intake, and status change. Noris MELENDEZ, MS RD LD [phone] cell"
--- NOTE | 2020-12-03 13:57 | STRESS TEST ---
DATE OF SERVICE: 12/03/2020 RESTING AND POST REGADENOSON TECHNETIUM-99M TETROFOSMIN SPECT CT IMAGING ORDERING PHYSICIAN: Roro Carter APRN PRIMARY PHYSICIAN: Regina Rodriguez APRN ATTENDING PHYSICIAN: Dr. Jules. CLINICAL DIAGNOSIS: Chest discomfort. Baseline images were carried out after injection of 9.99 mCi of technetium-99m Tetrofosmin. This was followed by 0.4 mg regadenoson and 32.7 mCi of technetium-99m Tetrofosmin for stress imaging. The electrocardiogram showed sinus rhythm at baseline and did not change significantly with regadenoson infusion. He has chronic chest discomfort that has been persistent for several days and remained unchanged during the procedure. Overall, he tolerated the procedure well. Review of images at rest and following stress does not indicate any significant perfusion defects consistent with myocardial ischemia or infarction. Some degree of diaphragmatic attenuation is seen both at rest and following regadenoson infusion. Gated images show normal global left ventricular systolic function with normal regional wall motion, including the diaphragmatic wall of the left ventricle. Left ventricular ejection fraction is calculated to be 50%. Left ventricular end diastolic volume is 97 mL. TID is absent (1.01). CONCLUSIONS: 1. No evidence of any significant myocardial ischemia or infarction on this study. 2. Normal regional wall motion. 3. Normal global left ventricular systolic function with a calculated ejection fraction of 50%. Job ID: [id number] DocumentID: [id number] Dictated Date: 12/03/2020 13:31:42 Telemetry Tech Date: 12/03/2020 13:56:44 Dictated By: AMOS LOGAN MD, MA, FACP, FACC,
--- NOTE | 2020-12-03 14:29 | Progress Note - Cardiology ---
Cardiology SOAP Progress Note Subjective: Chest discomfort at before: continuous (now for several weeks), mild to mod, worse with palpation over midchest or left or right parasternal areas No shortness of breath No palp or syncope No swelling Wishes to go home Objective: I&O/Vital Signs 12/03/20 12/03/20 12/03/20 12/03/20 03:51 06:41 08:00 08:00 Temp 36.2 Pulse 75 80 83 Resp 20 18 B/P (MAP) 151/81 (104) 173/79 (110) Pulse Ox 95 99 99 O2 Delivery Room Air Room Air 12/03/20 12:00 Temp 35.8 Pulse 78 Resp 16 B/P (MAP) 167/79 (108) Pulse Ox 99 O2 Delivery Room Air 12/03/20 00:00 Intake Total 2045 ml Output Total 1 ml Balance 2044 ml Weight (Pounds): 220 Weight (Ounces): 0 Weight (Calculated Kilograms): 99.659836 Constitutional: AAO x 3, well-developed, well-nourished Respiratory: No accessory muscle use, No respiratory distress; chest expansion is symmetric, chest is bilaterally symmetric, lungs clear to auscultation Cardiovascular: regular rate-rhythm; No JVD; S1 and S2 Gastrointestional: No tender; soft, round Extremities: no lower extremity edema bilateral Neurologic/Psychiatric: oriented x 3, other (moves all limbs equally) Skin: No rash on exposed areas, No ulcerations on exposed areas Results/Procedures: Labs Laboratory Tests 12/02/20 16:31: Glucometer 194H 12/02/20 19:58: Glucometer 225H 12/03/20 05:25: White Blood Count 6.4, Red Blood Count 4.67, Hemoglobin 13.9, Hematocrit 39L, Mean Corpuscular Volume 84, Mean Corpuscular Hemoglobin 30, Mean Corpuscular Hemoglobin Concent 36, Red Cell Distribution Width 12.5, Platelet Count 178, Mean Platelet Volume 10.7, Immature Granulocyte % (Auto) 1, Neutrophils (%) (Auto) 58, Lymphocytes (%) (Auto) 25, Monocytes (%) (Auto) 10, Eosinophils (%) (Auto) 6, Basophils (%) (Auto) 1, Neutrophils # (Auto) 3.7, Lymphocytes # (Auto) 1.6, Monocytes # (Auto) 0.6, Eosinophils # (Auto) 0.4H, Basophils # (Auto) 0.1, Immature Granulocyte # (Auto) 0.0, Sodium Level 137, Potassium Level 4.4, Chloride Level 106, Carbon Dioxide Level 23, Anion Gap 8, Blood Urea Nitrogen 17, Creatinine 0.83, Estimat Glomerular Filtration Rate > 60, BUN/Creatinine Ratio 20, Glucose Level 258H, Calcium Level 8.8, Corrected Calcium 8.9, Total Bilirubin 0.5, Aspartate Amino Transf (AST/SGOT) 27, Alanine Aminotransferase (ALT/SGPT) 42, Alkaline Phosphatase 68, Total Protein 6.1L, Albumin 3.9, Triglycerides Level 255H, Cholesterol Level 146, LDL Cholesterol Direct 69, VLDL Cholesterol 51H, HDL Cholesterol 36L 12/03/20 11:49: Glucometer 223H Laboratory Tests 12/02/20 05:08 12/03/20 05:25 A/P: Assessment: Chest pain of undetermined etiology, no evidence of ACS Echocardiogram of Dec 02, 2020 showed LVEF 55-60%. LA mildly to mod dilated. PASP 20-30 mmHg MPI of 12/03/20: no ischemia or infarction, LVEF 50% HTN HLD DM 2 Quit smoking 2 yrs ago GERD Non-compliant with medications Plan: Chest pain of undetermined etiology - no evidence of ACS thus far Symptoms with features of musculoskeletal discomfort - continue NSAID tx prn Add PPI Outpt f/u advised Advised w/u for noncardiac causes of cp with his pcp Advised to continue to refrain from smoking AMOS LOGAN MD FACP FAC CCDS Dec 03, 2020 14:29
[2020-12-03 14:50] VITALS: BP 167/79
--- NOTE | 2020-12-03 15:01 | NUR ---
DISCHARGE PLANNING: Pending discharge orders are in so decided to speak with the patient regarding possible needs at home once discharged. He reports that he does not think he will have needs. Pending Stress Test result for definitive discharge.
--- NOTE | 2020-12-04 06:24 | Discharge Summary ---
Discharge Summary Hospital Course Was the Problem List Reviewed?: Yes Problems/Dx: (1) Diabetes (2) Chest pain Status: Acute Qualifiers: Qualified Codes: R07.9 - Chest pain, unspecified (3) Hypertension Status: Acute Qualifiers: Qualified Codes: I10 - Essential (primary) hypertension Hospital Course Date of Admission: Dec 02, 2020 at 08:29 Admission Diagnosis : Family Physician/Provider: Regina Rodriguez Date of Discharge: 12/04/20 Discharge Diagnosis: atypical chest pain with negative EST, reflux, DM OOC, HTN OOC Hospital Course: Hospital Course: Pt had a brief hospital course, he was admitted for chest pain and due to risk factors of diabetes and HTN he was risk stratified by a stress test and cardiology was consulted. Blood sugars required insulin. HTN improved with restarting his home meds and overall stress test revealed no reversible ischemia. He was placed on Protonix and Carafate for any type of esophagus pain causing the chest pain and he will have close follow up with DON Rodriguez in order to further evaluate the need for any other testing. Labs and Pending Lab Test: Laboratory Tests 12/03/20 11:49: Glucometer 223H Home Meds Active Carafate (Sucralfate) 1 Gm Tablet 1 Gm PO ACHS Protonix (Pantoprazole Sodium) 40 Mg Tablet.dr 40 Mg PO DAILY Reported Glyburide 5 Mg Tablet 5 Mg PO DAILY LAST FILLED 03-18-2020 #90/90 DAY SUPPLY Bystolic (Nebivolol HCl) 5 Mg Tablet 5 Mg PO HS Simvastatin 40 Mg Tablet 40 Mg PO HS LAST FILLED 07-14-2020 #90/90 DAY SUPPLY Zinc 50 Mg Tablet 50 Mg PO DAILY Coq-10 (Ubidecarenone) 100 Mg Capsule 100 Mg PO DAILY Cinnamon (Cinnamon Bark) 500 Mg Capsule 500 Mg PO DAILY Multivitamin 1 Each Tablet 1 Each PO DAILY Soliqua 100 Unit-33 Mcg/ml Pen (Insulin Glargine/Lixisenatide) 3 Ml Insuln.pen 30 Units SC DAILY Metformin HCl 1,000 Mg Tablet 1,000 Mg PO BID Farxiga (Dapagliflozin Propanediol) 10 Mg Tablet 10 Mg PO DAILY Lisinopril-Hctz 20-12.5 mg Tab (Lisinopril/Hydrochlorothiazide) 1 Each Tablet 1 Ea PO BID Assessment/Pt Instructions chc 1 week Discharge Planning: <30 minutes discharge planning Discharge Instructions Activity as Tolerated: Yes Discharge Physical Examination Vital Signs Vital Signs Date Time Temp Pulse Resp B/P (MAP) Pulse Ox O2 Delivery O2 Flow Rate FiO2 12/03/20 14:50 35.8 74 16 167/79 99 Room Air 12/02/20 11:34 2.00 General Appearance: No Apparent Distress, WD/WN Respiratory: Chest Non Tender, Lungs Clear, Normal Breath Sounds, No Accessory Muscle Use, No Respiratory Distress Cardiovascular: Regular Rate, Rhythm, No Edema, No Gallop, No JVD, No Murmur, Normal Peripheral Pulses Neurologic/Psychiatric: Alert, Oriented x3, No Motor/Sensory Deficits, Normal Mood/Affect Allergies: Coded Allergies: No Known Drug Allergies (Unverified , 05/14/19) Discharge Summary Date of Admission Dec 02, 2020 at 08:29 Date of Discharge Dec 03, 2020 at 15:05 Discharge Date: Dec 03, 2020 Admission Diagnosis Assessment: Chest pain DM OOC HTN OOC HLP Obesity Former smoker Plan: DM management Cardiology consultation Discharge Diagnosis (1) Diabetes (2) Chest pain Status: Acute Qualifiers: Qualified Codes: R07.9 - Chest pain, unspecified (3) Hypertension Status: Acute Qualifiers: Qualified Codes: I10 - Essential (primary) hypertension LASHA BURNETT DO Dec 04, 2020 06:24
== END 2020-12-03 15:05 | disposition home or self-care (01) | DRG 313 ==
LOC: EDUNIT# 05:03 → ER FS 05:06 → CSD 08:29 → ER FS 09:21 → 4TH 16:40
PROVIDERS: ADMIT Internal Medicine; ATTEND Internal Medicine
DX: R07.89 Other chest pain (principal); E10.65 Type 1 diabetes mellitus with hyperglycemia; Z79.4 Long term (current) use of insulin; I10 Essential (primary) hypertension; E78.00 Pure hypercholesterolemia, unspecified; E78.5 Hyperlipidemia, unspecified; E66.9 Obesity, unspecified; Z68.33 Body mass index [BMI] 33.0-33.9, adult; K21.9 Gastro-esophageal reflux disease without esophagitis; Z87.891 Personal history of nicotine dependence; Z91.14 Patient's other noncompliance with medication regimen; Z82.49 Family history of ischemic heart disease and other diseases of the circulatory system
CPT/HCPCS: 36415; 71045; 78452; 80053; 80061; 82962; 83735; 83874; 84484; 85025; 85610; 85730; 93005; 93017; 93041; 93306

== ENCOUNTER → 2022-05-13 | Outpatient (CLI) | payer BC, SELFPAY ==
[~2022-05-13] MED LIST: CINN500C2 PO; DAPA10TA PO; GLBR5T PO; INSU3INS2 SC; LISI1TAB46 PO; METF-399 PO; MULT-1136 PO; NEBI5TAB8 PO; PANT40TA2 PO; SIMV40TA25 PO; SUCR1TAB36 PO; UBID100C17 PO; ZINC50TA58 PO
--- NOTE | 2022-05-13 16:37 | Diagnostic Imaging Report ---
INDICATION: Family history of heart disease CT coronary calcium score study performed with noncontrast images followed by calculation of coronary calcium score. Dose reduction protocol was used. Raw data images demonstrate no overt mediastinal or hilar adenopathy. There are coronary calcifications of mainly the LAD territory. There is no overt pleural or pericardial fluid. Visualized portions of the aorta are normal in caliber. Visualized portions of the lung bennett are essentially clear, the entirety of the lungs are not included on the study. CT cardiac calcium score show some dense calcification in the LAD territory with a tiny amount of calcification in the right coronary artery. Calcium score for the LAD was 261.1. Calcium score for right coronary artery was 5.1. Calcium score for circumflex and left main coronary artery was 0. IMPRESSION: Overall coronary calcium score of 266.2, compatible with moderate overall plaque burden, the predominance of the calcifications within the LAD territory. Consider further workup as clinically warranted. Dictated by: Dictated on workstation # [id number]
== END ==
LOC: RAD FS 15:29
PROVIDERS: ATTEND Family Medicine
DX: Z82.49 Family history of ischemic heart disease and other diseases of the circulatory system (principal)
CPT/HCPCS: 75571

== ENCOUNTER 2022-10-23 19:21 | Observation (INO) | payer BC, OTHER ==
[~2022-10-23] VITALS: Ht 180.3 cm; Wt 111.9 kg
[2022-10-23 19:35] LABS: BASOPHILS # (AUTO) 0.1 10^3/uL (0.0-0.1); BASOPHILS % (AUTO) 1 % (0-10); EOSINOPHILS # (AUTO) 0.6 10^3/uL (0.0-0.3); EOSINOPHILS % (AUTO) 7 % (0-10); HEMATOCRIT 42 % (40-54); HEMOGLOBIN 14.7 g/dL (13.3-17.7); LYMPHOCYTES # (AUTO) 2.3 10^3/uL (1.0-4.0); LYMPHOCYTES % (AUTO) 27 % (12-44); MEAN CORPUSCULAR HEMOGLOBIN 29 pg (25-34); MEAN CORPUSCULAR HGB CONC 35 g/dL (32-36); MEAN CORPUSCULAR VOLUME 83 fL (80-99); MEAN PLATELET VOLUME 10.5 fL (9.0-12.2); MONOCYTES # (AUTO) 0.8 10^3/uL (0.0-1.0); MONOCYTES % (AUTO) 9 % (0-12); NEUTROPHILS # (AUTO) 4.9 10^3/uL (1.8-7.8); NEUTROPHILS % (AUTO) 56 % (42-75); PLATELET COUNT 197 10^3/uL (130-400); WHITE BLOOD COUNT 8.6 10^3/uL (4.3-11.0)
[2022-10-23] MEDS ORDERED: FAMOTIDINE 20MG/2ML IV (PEPCID) IVP ONE (19:45)
[2022-10-23] MEDS ORDERED: cloNIDine 0.2 MG (CATAPRES) TAB PO ONE (19:45)
[2022-10-23] MEDS ORDERED: ONDANSETRON 4 MG/2 ML (SDV) Z0FRAN IVP ONE ×2 (19:45→22:00)
[2022-10-23 19:53] LABS: BUN/CREATININE RATIO 20; CARBON DIOXIDE 24 MMOL/L (21-32); CHLORIDE 105 MMOL/L (98-107); CREATININE SERUM 1.17 MG/DL (0.60-1.30); GFR ESTIMATED 78; SODIUM 141 MMOL/L (135-145)
[2022-10-23 19:54] LABS: ALANINE AMINOTRANSFERASE 38 U/L (0-55); ALBUMIN 4.1 GM/DL (3.2-4.5); ALKALINE PHOSPHATASE 100 U/L (40-136); BILIRUBIN,TOTAL 0.3 MG/DL (0.1-1.0); CALCIUM 9.3 MG/DL (8.5-10.1); GLUCOSE 265 MG/DL (70-105); TOTAL PROTEIN 6.6 GM/DL (6.4-8.2)
[2022-10-23] MEDS ORDERED: LORazepam INJ 2 MG/ML (ATIVAN) VIAL IVP ONE (20:00)
--- NOTE | 2022-10-23 20:10 | Diagnostic Imaging Report ---
INDICATION: Chest pain COMPARISON: December 02, 2020 TECHNIQUE: Single radiograph of the chest dated 10/23/2022. FINDINGS: The cardiac silhouette is within normal limits in size. No significant pulmonary vascular congestion. Minimal scarring within the left lung base, appearing similar to the prior examination. The lungs otherwise appear clear. No pleural effusion. No pneumothorax. No acute osseous abnormality. IMPRESSION: Stable minimal linear interstitial opacities within the left lung base felt to relate to scarring given stability since 2020. No superimposed acute cardiopulmonary abnormality. Dictated by: Dictated on workstation # [id number]
[2022-10-23] MEDS ORDERED: LABETALOL HCL 20 MG/4 ML VIAL IV ONE (20:30)
[2022-10-23] MEDS ORDERED: LIDOCAINE 2% VISCOUS 15 ML UDC PO ONE (20:30)
[2022-10-23] MEDS ORDERED: ANTACID SUSP 30 ML UDC (MYLANTA) PO ONE (20:30)
[2022-10-23] MEDS ORDERED: ASPIRIN 81 MG CHEW (CHILDREN'S ASA) PO ONE (21:00)
[2022-10-23] MEDS ORDERED: inSUlin (REGULAR) HUMAN 1 UNIT/0.01 ML (CHARGE PER UNIT) SC ONE (21:00)
[2022-10-23] MEDS: NITROGLYCERIN 0.4 MG SL TABS BTL 25'S SL PRN ×3 (21:12→22:00)
--- NOTE | 2022-10-23 22:05 | ED Chest Pain ---
General Chief Complaint: Chest Pain Stated Complaint: CP,IRREGULAR HEARTRATE Nursing Triage Note: Pt complaining of chest pain that started 2 hours ago. Pt describes his pain as burning and states it radiates to his left shoulder. Source: patient Exam Limitations: no limitations History of Present Illness Date Seen by Provider: Oct 23, 2022 Time Seen by Provider: 19:25 Initial Comments Patient is a 47-year-old insulin-dependent diabetic with history of hypertension and GERD who presents with left-sided chest discomfort radiating to his left neck and shoulder and arm starting approximately 2 hours prior to arrival. Patient describes sensation as burning and rates mild to moderate. Pain is not reproduced with movement, deep breathing or exertion. Is not relieved by rest. Patient reports mild nausea but denies abdominal pain. No fever chills sweats. No leg pain or swelling. No back pain. No other acute symptoms or complaints. Patient states he checked his blood pressure was elevated at home and came concerned that his blood pressure appear to be regular. Denies palpitations. No history of CAD, arrhythmia, or valvular heart disease. Blood sugar has been controlled. Cardiac risk factors include hypertension diabetes family history of coronary disease under the age of 50. Patient is a non-smoker. Timing/Duration: other Severity/Quality: other Location: other Radiation: other Activities at Onset: other Prior CP/Workup: other Modifying Factors: improves with other Allergies and Home Medications Allergies Coded Allergies: No Known Drug Allergies (Unverified , 05/14/19) Patient Home Medication List Home Medication List Reviewed: Yes Cinnamon Bark (Cinnamon) 500 Mg Capsule, 500 MG PO DAILY, (Reported) Entered as Reported by: MALIK LEONG on 12/02/201606 Dapagliflozin Propanediol (Farxiga) 10 Mg Tablet, 10 MG PO DAILY, (Reported) Entered as Reported by: MALIK LEONG on 12/02/201606 Glyburide (Glyburide) 5 Mg Tablet, 5 MG PO DAILY, (Reported) Entered as Reported by: MALIK LEONG on 12/02/201606 Insulin Glargine/Lixisenatide (Soliqua 100 Unit-33 Mcg/ml Pen) 3 Ml Insuln.pen, 30 UNITS SC DAILY, (Reported) Entered as Reported by: MALIK LEONG on 12/02/201606 Lisinopril/Hydrochlorothiazide (Lisinopril-Hctz 20-12.5 mg Tab) 1 Each Tablet, 1 EA PO BID, (Reported) Entered as Reported by: MALIK LEONG on 12/02/201606 Metformin HCl (Metformin HCl) 1,000 Mg Tablet, 1,000 MG PO BID, (Reported) Entered as Reported by: MALIK LEONG on 12/02/201606 Multivitamin (Multivitamin) 1 Each Tablet, 1 EACH PO DAILY, (Reported) Entered as Reported by: MALIK LEONG on 12/02/201606 Nebivolol HCl (Bystolic) 5 Mg Tablet, 5 MG PO HS, (Reported) Entered as Reported by: MALIK LEONG on 12/02/201606 Pantoprazole Sodium (Protonix) 40 Mg Tablet.dr, 40 MG PO DAILY Prescribed by: LASHA BURNETT on 12/03/201111 Simvastatin (Simvastatin) 40 Mg Tablet, 40 MG PO HS, (Reported) Entered as Reported by: MALIK LEONG on 12/02/201606 Sucralfate (Carafate) 1 Gm Tablet, 1 GM PO ACHS Prescribed by: LASHA BURNETT on 12/03/201111 Ubidecarenone (Coq-10) 100 Mg Capsule, 100 MG PO DAILY, (Reported) Entered as Reported by: MALIK LEONG on 12/02/201606 Zinc (Zinc) 50 Mg Tablet, 50 MG PO DAILY, (Reported) Entered as Reported by: MALIK LEONG on 12/02/201606 Review of Systems Review of Systems Constitutional: see HPI EENTM: See HPI Respiratory: See HPI Cardiovascular: See HPI Gastrointestinal: See HPI Genitourinary: See HPI Musculoskeletal: see HPI Skin: see HPI Psychiatric/Neurological: See HPI Endocrine: See HPI Hematologic/Lymphatic: See HPI All Other Systems Reviewed Negative Unless Noted: No Past Eisysoq-Vljkvc-Xysect Hx Patient Social History Tobacco Use?: No Use of E-Cig and/or Vaping dev: No Substance use?: No Alcohol Use?: Yes Alcohol Frequency: Once in a while Pt feels they are or have been: No Seasonal Allergies Seasonal Allergies: No Past Medical History Surgeries: Yes (left wrist) Tonsillectomy Respiratory: No Cardiac: Yes High Cholesterol, Hypertension Neurological: No Genitourinary: No Gastrointestinal: No Musculoskeletal: No Endocrine: Yes Diabetes, Insulin dep HEENT: No Cancer: No Psychosocial: No Integumentary: No Blood Disorders: No Physical Exam Vital Signs Vital Signs - First Documented 10/23/22 19:22 Temp 36.6 Pulse 105 Resp 20 B/P (MAP) 186/92 (123) Pulse Ox 100 O2 Delivery Room Air Capillary Refill : Less Than 3 Seconds Height, Weight, BMI Height: 5'11.00" Weight: 220lbs. 0oz. 99.862749zl; 33.06 BMI Method:Stated General Appearance: No Apparent Distress, WD/WN, Anxious HEENT: PERRL/EOMI Neck: Full Range of Motion, Normal Inspection, Supple Respiratory: Lungs Clear, Normal Breath Sounds Cardiovascular: Regular Rate, Rhythm, No Edema Gastrointestinal: Normal Bowel Sounds, Non Tender, Soft Neurologic/Psychiatric: Alert, Oriented x3, No Motor/Sensory Deficits Skin: Normal Color Focused Exam Sepsis Stage: Ruled Out Progress/Results/Core Measures Results/Orders Lab Results Laboratory Tests Test 10/23/22 19:25 10/23/22 21:20 Range/Units White Blood Count 8.6 4.3-11.0 10^3/uL Red Blood Count 5.02 4.30-5.52 10^6/uL Hemoglobin 14.7 13.3-17.7 g/dL Hematocrit 42 40-54 % Mean Corpuscular Volume 83 80-99 fL Mean Corpuscular Hemoglobin 29 25-34 pg Mean Corpuscular Hemoglobin Concent 35 32-36 g/dL Red Cell Distribution Width 12.7 10.0-14.5 % Platelet Count 197 130-400 10^3/uL Mean Platelet Volume 10.5 9.0-12.2 fL Immature Granulocyte % (Auto) 0 % Neutrophils (%) (Auto) 56 42-75 % Lymphocytes (%) (Auto) 27 12-44 % Monocytes (%) (Auto) 9 0-12 % Eosinophils (%) (Auto) 7 0-10 % Basophils (%) (Auto) 1 0-10 % Neutrophils # (Auto) 4.9 1.8-7.8 10^3/uL Lymphocytes # (Auto) 2.3 1.0-4.0 10^3/uL Monocytes # (Auto) 0.8 0.0-1.0 10^3/uL Eosinophils # (Auto) 0.6 H 0.0-0.3 10^3/uL Basophils # (Auto) 0.1 0.0-0.1 10^3/uL Immature Granulocyte # (Auto) 0.0 0.0-0.1 10^3/uL Sodium Level 141 135-145 MMOL/L Potassium Level 4.0 3.6-5.0 MMOL/L Chloride Level 105 98-107 MMOL/L Carbon Dioxide Level 24 21-32 MMOL/L Anion Gap 12 5-14 MMOL/L Blood Urea Nitrogen 23 H 7-18 MG/DL Creatinine 1.17 0.60-1.30 MG/DL Estimat Glomerular Filtration Rate 78 BUN/Creatinine Ratio 20 Glucose Level 265 H 70-105 MG/DL Calcium Level 9.3 8.5-10.1 MG/DL Corrected Calcium 9.2 8.5-10.1 MG/DL Total Bilirubin 0.3 0.1-1.0 MG/DL Aspartate Amino Transf (AST/SGOT) 24 5-34 U/L Alanine Aminotransferase (ALT/SGPT) 38 0-55 U/L Alkaline Phosphatase 100 40-136 U/L Troponin I < 0.30 < 0.30 <0.30 NG/ML Total Protein 6.6 6.4-8.2 GM/DL Albumin 4.1 3.2-4.5 GM/DL My Orders Orders - RENEE LEBRON DO Cbc With Automated Diff (10/23/22 19:29) Comprehensive Metabolic Panel (10/23/22 19:29) Troponin I Fs (10/23/22 19:29) Ekg Tracing (10/23/22 19:29) Chest 1 View Ap/Pa Only (10/23/22 19:29) Ed Iv/Invasive Line Start (10/23/22 19:32) Famotidine Injection (Pepcid Injection) (10/23/22 19:45) Ondansetron Injection (Zofran Injectio (10/23/22 19:45) Clonidine Tablet (Catapres Tablet) (10/23/22 19:45) Lorazepam Injection (Ativan Injection) (10/23/22 20:00) Labetalol Injection (Normodyne Injection (10/23/22 20:30) Lidocaine 2% Viscous 15 Ml (Xylocaine Vi (10/23/22 20:30) Antacid Suspension (Mylanta Suspension (10/23/22 20:30) Troponin I Fs (10/23/22 20:48) Aspirin Chewable Tablet (Baby Aspirin Ch (10/23/22 21:00) Nitroglycerin 0.4 Mg Btl 25's (Nitrostat (10/23/22 21:00) Insulin (Regular) Human (Novolin R (Per (10/23/22 21:00) Ed Admission (Communication) (10/23/22 21:06) Fentanyl Inj (Sublimaze Injection) (10/23/22 22:00) Ondansetron Injection (Zofran Injectio (10/23/22 22:00) Medications Given in ED Current Medications Medications Dose Ordered Sig/Zana Route Start Time Stop Time Status Last Admin Dose Admin Al Hydrox/Mg Hydrox/Simethicone 30 ml ONCE ONCE PO 10/23/22 20:30 10/23/22 20:32 DC 10/23/22 20:41 30 ML Aspirin 324 mg ONCE ONCE PO 10/23/22 21:00 10/23/22 21:01 DC 10/23/22 20:56 324 MG Clonidine HCl 0.2 mg ONCE ONCE PO 10/23/22 19:45 10/23/22 19:46 DC 10/23/22 19:46 0.2 MG Famotidine 20 mg ONCE ONCE IVP 10/23/22 19:45 10/23/22 19:46 DC 10/23/22 19:46 20 MG Insulin Human Regular 12 unit ONCE ONCE SC 10/23/22 21:00 10/23/22 21:01 DC 10/23/22 21:05 12 UNIT Labetalol HCl 20 mg ONCE ONCE IV 10/23/22 20:30 10/23/22 20:32 DC 10/23/22 20:41 20 MG Lidocaine HCl 15 ml ONCE ONCE PO 10/23/22 20:30 10/23/22 20:32 DC 10/23/22 20:42 15 ML Lorazepam 1 mg ONCE ONCE IVP 10/23/22 20:00 10/23/22 20:01 DC 10/23/22 20:11 1 MG Nitroglycerin 1 TAB Q 5 MIN X 3 NEEDED PRN SL 10/23/22 21:00 10/23/22 21:24 0.4 MG Ondansetron HCl 4 mg ONCE ONCE IVP 10/23/22 19:45 10/23/22 19:46 DC 10/23/22 19:46 4 MG Vital Signs/I&O 10/23/22 19:22 Temp 36.6 Pulse 105 Resp 20 B/P (MAP) 186/92 (123) Pulse Ox 100 O2 Delivery Room Air Blood Pressure Mean: 123 Departure Communication (Admissions) Chest x-ray: No acute cardiopulmonary disease on preliminary ED review EKG: Sinus rhythm, rate 77, no acute ST-T wave changes. Moderate intraventricular conduction delay. Patient with atypical chest pain at rest in the setting of accelerated hypertension. EKG and initial lab nondiagnostic nondiagnostic. Clonidine and labetalol given persistent elevation of blood pressure. Pepcid, Ativan and GI cocktail given with no improvement of chest discomfort. Nitroglycerin x3 given with complete resolution of symptoms. Blood pressure improved. Repeat troponin is negative. Case discussed with Dr. Clay on-call for cardiology agrees to see the patient consult oral. Recommendations for cardiac stepdown, nitroglycerin drip as needed and hospitalist admission. Dr. Burnett accepts care of patient. Impression Primary Impression: Chest pain Additional Impression: Labile hypertension Disposition: ADMITTED INPATIENT Condition: Stable Admissions Decision to Admit Reason: Admit from ER (General) Decision to Admit/Date: Oct 23, 2022 Time/Decision to Admit Time: 21:00 Transfer Method of Transfer: EMS Departure-Patient Inst. Referrals: CATINA CHEW MD (PCP/Family) Primary Care Physician RENEE LEBRON DO Oct 23, 2022 22:05
[2022-10-23] MEDS: fentaNYL INJ 100 MCG/2 ML AMP IVP PRN (22:14)
[2022-10-23 23:15] VITALS: BP 139/80
[2022-10-23 23:45] VITALS: BP 134/81
[2022-10-23] MEDS ORDERED: ONDANSETRON 4 MG (ZOFRAN) ORAL DISSOLVE TAB PO PRN (23:45)
[2022-10-23] MEDS ORDERED: ANTACID SUSP 30 ML UDC (MYLANTA) PO PRN (23:45)
[2022-10-23] MEDS ORDERED: diphenhydrAMINE 50 MG/ML INJ (BENADRYL) IVP PRN (23:45)
[2022-10-23] MEDS ORDERED: polyethylene glycoL POWDER 17 GM (MIRALAX) PACK PO PRN (23:45)
[2022-10-23] MEDS ORDERED: cloNIDine 0.1 MG (CATAPRES) TAB PO PRN (23:45)
[2022-10-23] MEDS ORDERED: ALPRAZolam 0.5 MG (XANAX) TAB PO PRN (23:45)
[2022-10-23] MEDS ORDERED: diphenhydrAMINE 25 MG TAB (BENADRYL) PO PRN (23:45)
[2022-10-23] MEDS ORDERED: hydrALAZINE (APESOLINE) 20 MG/ML VIAL IV PRN (23:45)
[2022-10-23] MEDS ORDERED: BISACODYL 10 MG SUPP (DULCOLAX) PR PRN (23:45)
[2022-10-23] MEDS ORDERED: ONDANSETRON 4 MG/2 ML (SDV) Z0FRAN IV PRN (23:45)
[2022-10-23] MEDS ORDERED: NS IV 500 ML 500 ML IV PRN (23:45)
[2022-10-23] MEDS ORDERED: MELATONIN 3 MG TABLET PO PRN (23:45)
[2022-10-23] MEDS ORDERED: ACETAMINOPHEN 325 MG TABLET PO PRN (23:45)
[2022-10-23 23:54] VITALS: BP 186/92
[2022-10-24] VITALS (14 sets, daily range): BP systolic 125–161; BP diastolic 66–94
[2022-10-24] MEDS ORDERED: RT-ALBUTEROL SULF 2.5 MG/3 ML PRE-MIX VIAL INH PRN
[2022-10-24] MEDS: NITRO DRIP 25000 MCG/D5W 250 ML IV SCH ×2 (00:54→23:45)
[2022-10-24] MEDS: ENOXAPARIN 40 MG/0.4 ML (LOVENOX) SYR SC SCH ×2 (01:31→20:22)
[2022-10-24] MEDS ORDERED: inSUlin ASPART (NovoLOG) 1 UNIT/0.01 ML (CHARGE PER UNIT) ONE (01:35)
[2022-10-24] MEDS: inSUlin ASPART (NovoLOG) 1 UNIT/0.01 ML (CHARGE PER UNIT) SC SCH ×5 (01:36→21:18)
[2022-10-24 03:46] LABS: BASOPHILS # (AUTO) 0.1 10^3/uL (0.0-0.1); BASOPHILS % (AUTO) 1 % (0-10); EOSINOPHILS # (AUTO) 0.4 10^3/uL (0.0-0.3); EOSINOPHILS % (AUTO) 6 % (0-10); HEMATOCRIT 37 % (40-54); HEMOGLOBIN 13.2 g/dL (13.3-17.7); LYMPHOCYTES # (AUTO) 1.7 10^3/uL (1.0-4.0); LYMPHOCYTES % (AUTO) 27 % (12-44); MEAN CORPUSCULAR HEMOGLOBIN 30 pg (25-34); MEAN CORPUSCULAR HGB CONC 36 g/dL (32-36); MEAN CORPUSCULAR VOLUME 84 fL (80-99); MEAN PLATELET VOLUME 10.6 fL (9.0-12.2); MONOCYTES # (AUTO) 0.6 10^3/uL (0.0-1.0); MONOCYTES % (AUTO) 10 % (0-12); NEUTROPHILS # (AUTO) 3.4 10^3/uL (1.8-7.8); NEUTROPHILS % (AUTO) 56 % (42-75); PLATELET COUNT 156 10^3/uL (130-400); WHITE BLOOD COUNT 6.2 10^3/uL (4.3-11.0)
[2022-10-24 04:02] LABS: PHOSPHORUS 2.9 MG/DL (2.3-4.7)
[2022-10-24 04:04] LABS: MAGNESIUM 2.4 MG/DL (1.6-2.4)
[2022-10-24 04:20] LABS: ALBUMIN 3.7 GM/DL (3.2-4.5); CHLORIDE 109 MMOL/L (98-107); POTASSIUM 4.1 MMOL/L (3.6-5.0); SODIUM 139 MMOL/L (135-145)
[2022-10-24 04:21] LABS: CALCIUM 8.8 MG/DL (8.5-10.1)
[2022-10-24 04:22] LABS: TRIGLYCERIDES 290 MG/DL (<150); VLDL CHOLESTEROL 58 MG/DL (5-40)
[2022-10-24 04:23] LABS: GLUCOSE 274 MG/DL (70-105); TOTAL PROTEIN 5.8 GM/DL (6.4-8.2)
[2022-10-24 04:24] LABS: BILIRUBIN,TOTAL 0.3 MG/DL (0.1-1.0); CARBON DIOXIDE 21 MMOL/L (21-32)
[2022-10-24 04:26] LABS: ALKALINE PHOSPHATASE 73 U/L (40-136); GFR ESTIMATED 84
[2022-10-24 04:27] LABS: CHOLESTEROL 109 MG/DL (< 200)
[2022-10-24 04:28] LABS: BUN/CREATININE RATIO 22; HDL CHOLESTEROL 32 MG/DL (40-60)
[2022-10-24 04:29] LABS: ALANINE AMINOTRANSFERASE 32 U/L (0-55)
[2022-10-24] MEDS: KCL 20 MEQ TAB (K-DUR) PO SCH (04:37)
[2022-10-24] MEDS: POTASSIUM CL 10MEQ/50ML IVPB 50 ML IV SCH (04:37)
[2022-10-24] MEDS: MAGNESIUM 1 GM/100 ML IVPB 100 ML IV SCH (04:37)
--- NOTE | 2022-10-24 05:17 | Short Stay Summary-Hospitalist ---
History of Present Illness HPI/Chief Complaint Chief complaint: Chest pain HPI: This is a 47-year-old male clinic patient of [facility] who presented to [place] ER with chest pain. Blood pressure was severely elevated. He was given multiple medications and nitroglycerin drip was ordered but not needed last night. Still reports some vague chest pain. Cardiology has been consulted. Source: patient Exam Limitations: no limitations Date Seen 10/24/22 Time Seen by a Provider: 05:15 Attending Physician Robin Martinez MD PCP Admitting Physician: Talia Jules DO Attending Physician: Talia Jules DO Referring Physician Date of Admission Oct 23, 2022 at 23:19 Home Medications & Allergies Home Medications Reviewed patient Home Medication Reconciliation performed by pharmacy medication reconciliations physical therapist technician and/or nursing. Patients Allergies have been reviewed. Allergies Allergies Coded Allergies No Known Drug Allergies (Unverified05/14/19) Past Ixlyhtk-Euwbvk-Tmezic Hx Patient Social History Tobacco Use?: No Smoking Status: Former Smoker Use of E-Cig and/or Vaping dev: No Substance use?: No Alcohol Use?: No Alcohol Frequency: Once in a while Pt feels they are or have been: No Immunizations Up To Date Date of Influenza Vaccine: Jul 25, 2022 Tetanus Booster (TDap): More Than 5 Years Hepatitis A: No Hepatitis B: Yes Seasonal Allergies Seasonal Allergies: No Current Status Advance Directives: No Communicates: Verbally Primary Language: Luxembourger Preferred Spoken Language: Luxembourger Is interpretation needed?: No Sensory deficits: Vision impairment Past Medical History Surgeries: Tonsillectomy High Cholesterol, Hypertension Diabetes, Insulin dep Blood Disorders: No Review of Systems Constitutional: see HPI Cardiovascular: chest pain Physical Exam Physical Exam Vital Signs Vital Signs - First Documented 10/23/22 10/23/22 19:22 23:54 Temp 36.6 Pulse 105 Resp 20 B/P (MAP) 186/92 (123) Pulse Ox 100 O2 Delivery Room Air FiO2 21 Capillary Refill : Less Than 3 Seconds Height, Weight, BMI Height: 5'11.00" Weight: 220lbs. 0oz. 99.145944bc; 35.00 BMI Method:Stated General Appearance: No Apparent Distress, WD/WN, Anxious HEENT: PERRL/EOMI Neck: Full Range of Motion, Normal Inspection, Supple Respiratory: Lungs Clear, Normal Breath Sounds Cardiovascular: Regular Rate, Rhythm, No Edema Gastrointestinal: Normal Bowel Sounds, Non Tender, Soft Neurologic/Psychiatric: Alert, Oriented x3, No Motor/Sensory Deficits Skin: Normal Color Results Results/Procedures Labs Laboratory Tests 10/23/22 19:25 10/24/22 03:35 Patient resulted labs reviewed. Short Stay Diagnosis Discharge Diagnosis-Short Stay Admission Diagnosis Chest pain Hypertensive urgency Diabetes Final Discharge Diagnosis Chest pain Hypertensive urgency Diabetes Conclusion Plan Cardiology consult monitor blood pressure TALIA JULES DO Oct 24, 2022 05:17
[2022-10-24] MEDS: DOCUSATE SODIUM 100 MG (COLACE) CAP PO SCH ×2 (07:50→20:22)
[2022-10-24] MEDS: HYDROmorphone 2 MG/ML VIAL (DILAUDID) IV PRN ×2 (07:53→10:16)
[2022-10-24] MEDS ORDERED: ASPIRIN 81 MG CHEW (CHILDREN'S ASA) PO SCH (09:00)
--- NOTE | 2022-10-24 11:06 | Consultation-Cardiology ---
HPI-Cardiology Cardiology Consultation Date of Consultation 10/24/22 Date of Admission Time Seen by Provider: 11:02 Indication: Chest pain HPI 47-year-old gentleman with history of hypertension, elevated calcium score. Patient has been having chest pain on and off for few years, had a normal stress test in 2020. Started to have chest pain, dull in nature in the retrosternal area and left side of his chest radiating to the left arm associated with numbness on his left arm. Came into the emergency room, reported some improvement, this morning started to have chest pain again. On my evaluation he was having active chest discomfort, 4-5 over 10 in intensity. Home Medications & Allergies Allergies: Coded Allergies: No Known Drug Allergies (Unverified , 05/14/19) Home Medication List Reviewed: Yes [id number] Hx Patient Social History Smoking Status: Former Smoker 2nd Hand Smoke Exposure: No Recent Hopitalizations: No Have you traveled recently?: No Alcohol Use?: No Immunizations Up To Date Date of Influenza Vaccine: Jul 25, 2022 Past Medical History Discussed below Family Medical History Significant Family History: Heart Disease Family Medical Hx Family history of heart disease Review of Systems-General Review of Systems Constitutional: see HPI EENTM: see HPI, no symptoms reported Respiratory: no symptoms reported, see HPI Cardiovascular: see HPI, chest pain; No edema, No Hx of Intervention, No palpitations, No syncope, No vascular heart diseas, No other Gastrointestinal: no symptoms reported, see HPI Genitourinary: no symptoms reported, see HPI Musculoskeletal: see HPI Skin: see HPI Psychiatric/Neurological: See HPI All Other Systems Reviewed Negative Unless Noted: No Reviewed Test Results Reviewed Test Results Lab Laboratory Tests Test 10/23/22 19:25 10/23/22 21:20 10/24/22 03:35 Range/Units White Blood Count 8.6 6.2 4.3-11.0 10^3/uL Red Blood Count 5.02 4.43 4.30-5.52 10^6/uL Hemoglobin 14.7 13.2 L 13.3-17.7 g/dL Hematocrit 42 37 L 40-54 % Mean Corpuscular Volume 83 84 80-99 fL Mean Corpuscular Hemoglobin 29 30 25-34 pg Mean Corpuscular Hemoglobin Concent 35 36 32-36 g/dL Red Cell Distribution Width 12.7 12.8 10.0-14.5 % Platelet Count 197 156 130-400 10^3/uL Mean Platelet Volume 10.5 10.6 9.0-12.2 fL Immature Granulocyte % (Auto) 0 0 % Neutrophils (%) (Auto) 56 56 42-75 % Lymphocytes (%) (Auto) 27 27 12-44 % Monocytes (%) (Auto) 9 10 0-12 % Eosinophils (%) (Auto) 7 6 0-10 % Basophils (%) (Auto) 1 1 0-10 % Neutrophils # (Auto) 4.9 3.4 1.8-7.8 10^3/uL Lymphocytes # (Auto) 2.3 1.7 1.0-4.0 10^3/uL Monocytes # (Auto) 0.8 0.6 0.0-1.0 10^3/uL Eosinophils # (Auto) 0.6 H 0.4 H 0.0-0.3 10^3/uL Basophils # (Auto) 0.1 0.1 0.0-0.1 10^3/uL Immature Granulocyte # (Auto) 0.0 0.0 0.0-0.1 10^3/uL Sodium Level 141 139 135-145 MMOL/L Potassium Level 4.0 4.1 3.6-5.0 MMOL/L Chloride Level 105 109 H 98-107 MMOL/L Carbon Dioxide Level 24 21 21-32 MMOL/L Anion Gap 12 9 5-14 MMOL/L Blood Urea Nitrogen 23 H 24 H 7-18 MG/DL Creatinine 1.17 1.10 0.60-1.30 MG/DL Estimat Glomerular Filtration Rate 78 84 BUN/Creatinine Ratio 20 22 Glucose Level 265 H 274 H 70-105 MG/DL Calcium Level 9.3 8.8 8.5-10.1 MG/DL Corrected Calcium 9.2 9.0 8.5-10.1 MG/DL Total Bilirubin 0.3 0.3 0.1-1.0 MG/DL Aspartate Amino Transf (AST/SGOT) 24 18 5-34 U/L Alanine Aminotransferase (ALT/SGPT) 38 32 0-55 U/L Alkaline Phosphatase 100 73 40-136 U/L Troponin I < 0.30 < 0.30 < 0.028 <0.028 NG/ML Total Protein 6.6 5.8 L 6.4-8.2 GM/DL Albumin 4.1 3.7 3.2-4.5 GM/DL Phosphorus Level 2.9 2.3-4.7 MG/DL Magnesium Level 2.4 1.6-2.4 MG/DL Triglycerides Level 290 H <150 MG/DL Cholesterol Level 109 < 200 MG/DL LDL Cholesterol Direct 41 1-129 MG/DL VLDL Cholesterol 58 H 5-40 MG/DL HDL Cholesterol 32 L 40-60 MG/DL Physical Exam Physical Exam Vital Signs Vital Signs - First Documented 10/23/22 10/23/22 19:22 23:54 Temp 36.6 Pulse 105 Resp 20 B/P (MAP) 186/92 (123) Pulse Ox 100 O2 Delivery Room Air FiO2 21 Capillary Refill : Less Than 3 Seconds Height, Weight, BMI Height: 5'11.00" Weight: 220lbs. 0oz. [id number]; 35.00 BMI Method:Stated General Appearance: No Apparent Distress, WD/WN, Anxious Eyes: Bilateral Eye Normal Inspection, Bilateral Eye PERRL, Bilateral Eye EOMI HEENT: PERRL/EOMI Neck: Full Range of Motion, Normal Inspection, Supple Respiratory: Lungs Clear, Normal Breath Sounds Cardiovascular: Regular Rate, Rhythm, No Edema Gastrointestinal: Normal Bowel Sounds, Non Tender, Soft Back: Normal Inspection, No CVA Tenderness, No Vertebral Tenderness Extremity: Normal Capillary Refill, Normal Inspection, Normal Range of Motion, Non Tender, No Calf Tenderness, No Pedal Edema Neurologic/Psychiatric: Alert, Oriented x3, No Motor/Sensory Deficits Skin: Normal Color Lymphatic: No Adenopathy A/P-Cardiology Admission Diagnosis Chest pain Coronary artery disease Hypertension Hyperlipidemia Diabetes mellitus Assessment/Plan Chest pain resembling angina, recurrent chest pain, patient was hospitalized in November 2020 with acute chest pain Had a stress test in November 2020 with no ischemia or infarction Reporting that he has elevated calcium score of 256 done in the past few months Patient has multiple risk factors for coronary artery disease including hypertension, hyperlipidemia, diabetes mellitus, obesity, family history of heart disease, tobaccoism. Still having active chest pain, discussed the management plan recommended cardiac catheterization possible PTCA Hypertension, restart home medication monitor blood pressure Hyperlipidemia, lipid profile was done on October 24, 2022 with total cholesterol 109, triglyceride 290, LDL 41. Diabetes mellitus, followed and managed by primary care team Gastroesophageal reflux disease Ex tobaccoism, stopped smoking recently. Educated on smoking cessation Family history of heart disease. BMI 35, educated on smoking cessation CITLALLI MARTIN MD Oct 24, 2022 11:06
--- NOTE | 2022-10-24 11:07 | Cardiac Procedure Note-CS/ASA ---
Pre-Procedure Note Pre-Op Procedure Note Date of Available H&P: Oct 24, 2022 Date H&P Reviewed: Oct 24, 2022 Time H&P Reviewed: 11:06 History & Physical: H&P Reviewed, Patient Examed, No changes noted Pre-Operative Diagnosis: CP Conscious Sedation Pre-Proced Time 11:06 ASA Score 3 For ASA 3 and 4: Consider anesthesia and medical clearance. Also, for patients with a history of failed moderate sedation consider anesthesia. Airway Lungs Heart ASA score ASA 1: a normal healthy patient ASA 2: a patient with a mild systemic disease (mid diabetes, controlled hypertension, obesity ASA 3: a patient with a severe systemic disease that limits activity (angina, COPD, prior Myocardial infarction) ASA 4: a patient with an incapacitating disease that is a constant threat to life (CHF, renal failure) ASA 5: a moribund patient not expected to survive 24 hrs. (ruptured aneurysm) ASA 6: a declared brain- patient whose organs are being harvested. For emergent operations, add the letter E after the classification Mallampati Classification Grade 3 Sedation Plan Analgesia, Amnesia, Plan communicated to team members, Discussed options with patient/fam, Discussed risks with patient/fam The patient is an appropriate candidate to undergo the planned procedure, sedation, and anesthesia. The patient immediately re-assessed prior to indication. CITLALLI MARTIN MD Oct 24, 2022 11:06
[2022-10-24] MEDS ORDERED: NS IV 1000 ML 1,000 ML ONE (11:27)
[2022-10-24] MEDS ORDERED: HEParin (CATH LAB) 2,000 ML IV ONE (11:27)
[2022-10-24] MEDS ORDERED: LIDOCAINE 1% INJ 30 ML (XYLOCAINE) VIAL ONE (11:27)
[2022-10-24] MEDS ORDERED: VERAPAMIL 5 MG/2 ML (CALAN) VIAL IV ONE (11:29)
[2022-10-24] MEDS ORDERED: fentaNYL INJ 100 MCG/2 ML AMP ONE (11:30)
[2022-10-24] MEDS ORDERED: MIDAZOLAM 5 MG/5 ML (VERSED) VIAL ONE (11:30)
[2022-10-24] MEDS ORDERED: HEParin 1000 UNIT/ML (10ML VIAL) FOR BOLUS ONE (11:30)
[2022-10-24] MEDS ORDERED: NITRO DRIP 25000 MCG/D5W 250 ML IV ONE (11:30)
[2022-10-24] MEDS ORDERED: CLOPIDOGREL 300 MG (PLAVIX) TABLET PO ONE (12:17)
[2022-10-24] MEDS ORDERED: ASPIRIN 325 MG (5 GR) TABLET ONE (12:17)
[2022-10-24] MEDS ORDERED: TICAGRELOR 90 MG TABLET (BRILINTA) PO ONE (12:43)
--- NOTE | 2022-10-24 13:09 | Cardiac Cath Report ---
Cardiac Cath Report Physician (s)/Crab Catcher (s) Physician CITLALLI MARTIN MD Pre-Procedure Diagnosis Pre-Procedure Diagnosis: CP Post-Procedure Note Procedure Start Date: Oct 24, 2022 Name of Procedure: Left heart catheterization Aortic arch angiogram IVUS to the LAD Stenting to the proximal LAD Findings/Procedure Note PROCEDURE NOTE: 47-year-old gentleman with multiple risk factors for coronary artery disease, admitted with chest pain, cardiac enzymes were negative, continue to have chest pain, I advised him to proceed with cardiac catheterization possible PTCA. After explaining the procedure to the patient, all pros and cons were explained, all questions were answered. The patient signed the consent and then he was placed in the cardiac catheterization laboratory. Groin was prepped in SL fashion local anesthesia was used. Sheath placed in the right radial artery, Mona catheter was advanced with difficulty, the J-wire continue to elect to go up in the left carotid artery. After manipulation I was able to advance it. Engaged the right coronary artery, I was unable to engage the left system. Exchanged the catheter and tried with Vijaya left without success then I was successful with Arsalan catheter and engaging the left system. Angiogram was done. Patient has 95% stenosis in the proximal LAD, total of 6000 units of heparin were used, EBU guide was advanced to the left system, BMW wire was advanced and parked distally, predilatation with 3 x 15 mm balloon then I proceeded with deployment of diana point stent 3.5 x 18 mm deployed carefully, I was satisfied with the angiographic results, I elected to do IVUS to the LAD which showed mild apposition in the proximal LAD, I proceeded with 4 x 12 mm NC trek noncompliant balloon and expanded the proximal portion of the stent. And results were excellent. No residual stenosis The Vijaya left catheter was prolapsed to the left ventricular cavity, pressure was measured, pullback LV to aorta was done then I advanced the pigtail catheter and placed it in the aortic arch and proceeded with aortic arch angiogram. At the end of the procedure the sheath was removed. Vascular band was used FINDINGS: Hemodynamics LV 108/14, end-diastolic pressure of 14 Aorta 105/66 mean of 76 ANATOMY: Left Main is free of obstructive disease Left Anterior Descending has 95% proximal LAD stenosis successful stenting using diana point stent 3.5 x 18 mm expanded proximally to 4.1 mm and distally to 3.7 mm with excellent results. Successful IVUS to the LAD. 0% residual stenosis, pr eprocedure JENNIE flow was 2, postprocedure JENNIE flow is 3. 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 The left sub clavian artery is normal PERCUTANEOUS INTERVENTION: Pre stenosis 95% Post Stenosis 0% Pre JENNIE flow 2 Post JENNIE flow 3 Dominance right coronary artery CONCLUSION: 1. Unstable angina with 95% proximal LAD stenosis successful stenting using diana point stent 3.5 x 18 mm expanded proximally to 4.1 mm and distally to 3.7 with excellent results. The lesion is involving the ostium of the diagonal artery that was not affected 2. Dominant right coronary artery with no significant obstructive disease 3. Normal left ventricular end-diastolic pressure, ejection fraction per echo is 60% 4. 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
[2022-10-24] MEDS ORDERED: ASPI-1238 PO ×2 (13:11)
[2022-10-24] MEDS ORDERED: METF-399 PO ×2 (13:11)
[2022-10-24] MEDS ORDERED: TICA90TA PO ×2 (13:11)
--- NOTE | 2022-10-24 13:12 | Discharge Inst-Post CATH ---
Discharge Inst-CATH/EP Problems Reviewed?: Yes Post Cardiac Cath/EP D/C Inst Follow Up/Plan Hold metformin for [address] Mehta's office in 2 weeks <b>CARDIAC CATH/EP PROCEDURE DISCHARGE INSTRUCTIONS</b> ACTIVITY * Go Home directly and rest. * Limit activity of the leg (or wrist if it was used) for 7 days including aerobics, swimming, jogging, bicycling, etc. * Restrict stair-climbing for 7 days if possible, if not, climb up with your non-cath leg, then bring together on the same step. * Avoid lifting, pushing, pulling or excessive movement of the affected extremity for 7 days. * Customary sexual activity may be resumed after 2 days-use caution not to use a position that strains or causes pain to the affected extremity. * No driving for 24 hours. * NO SMOKING. * Avoid straining for bowel movements for 7 days. * Gentle walking on level ground is allowed. * Returning to work will depend on the type of procedure and the results. Your doctor will discuss this with you. CALL YOUR DOCTOR FOR ANY OF THE FOLLOWING: *If bleeding from the puncture site occurs- Apply gentle pressure to site with clean cloth and call your doctor or EMS. * If a knot or lump forms under the skin, increases in size, or causes pain. * If bruising appears to be worsening or moving further down your leg instead of disappearing. * Temperature above 101 F. CARE OF YOUR GROIN INCISION; * Bruising or purple discoloration of the skin near the puncture site is common. * You may shower only, no bathtub bathing for 5 days. Be careful to avoid slipping as your leg may feel stiff. * If a closure device was used on your femoral artery, please see the attached guide regarding care of the device and your leg. * Leave dressing on FOR 24 hours. CARE OF YOUR WRIST INCISION; * Bruising or purple discoloration of the skin near the puncture site is common. * You may shower. * DO NOT submerge wrist. * Leave dressing on FOR 24 hours. CITLALLI MARTIN MD Oct 24, 2022 13:12
[2022-10-24] MEDS: NS IV 1000 ML 1,000 ML IV SCH ×2 (18:40→23:00)
[2022-10-24] MEDS: TICAGRELOR 90 MG TABLET (BRILINTA) PO SCH (20:22)
[2022-10-25] VITALS: BP 132/70
[2022-10-25] MEDS: fentaNYL INJ 100 MCG/2 ML AMP IVP PRN (03:03)
[2022-10-25 04:00] VITALS: BP 134/74
[2022-10-25 05:10] LABS: BASOPHILS % (AUTO) 0 % (0-10); EOSINOPHILS # (AUTO) 0.3 10^3/uL (0.0-0.3); EOSINOPHILS % (AUTO) 4 % (0-10); HEMATOCRIT 36 % (40-54); HEMOGLOBIN 12.6 g/dL (13.3-17.7); LYMPHOCYTES # (AUTO) 1.1 10^3/uL (1.0-4.0); LYMPHOCYTES % (AUTO) 14 % (12-44); MEAN CORPUSCULAR HEMOGLOBIN 29 pg (25-34); MEAN CORPUSCULAR HGB CONC 35 g/dL (32-36); MEAN CORPUSCULAR VOLUME 84 fL (80-99); MEAN PLATELET VOLUME 10.6 fL (9.0-12.2); MONOCYTES # (AUTO) 0.7 10^3/uL (0.0-1.0); MONOCYTES % (AUTO) 9 % (0-12); NEUTROPHILS # (AUTO) 5.3 10^3/uL (1.8-7.8); NEUTROPHILS % (AUTO) 71 % (42-75); PLATELET COUNT 145 10^3/uL (130-400); WHITE BLOOD COUNT 7.4 10^3/uL (4.3-11.0)
[2022-10-25 05:28] LABS: ALBUMIN 3.4 GM/DL (3.2-4.5); POTASSIUM 4.6 MMOL/L (3.6-5.0)
[2022-10-25 05:29] LABS: CALCIUM 8.3 MG/DL (8.5-10.1)
[2022-10-25 05:30] LABS: TOTAL PROTEIN 5.5 GM/DL (6.4-8.2)
[2022-10-25 05:32] LABS: BILIRUBIN,TOTAL 0.4 MG/DL (0.1-1.0)
[2022-10-25 05:33] LABS: PHOSPHORUS 2.1 MG/DL (2.3-4.7)
[2022-10-25 05:34] LABS: CREATININE SERUM 0.86 MG/DL (0.60-1.30)
[2022-10-25] MEDS: MAGNESIUM 1 GM/100 ML IVPB 100 ML IV SCH (05:39)
[2022-10-25] MEDS: POTASSIUM CL 10MEQ/50ML IVPB 50 ML IV SCH (05:39)
[2022-10-25] MEDS: KCL 20 MEQ TAB (K-DUR) PO SCH (05:39)
[2022-10-25] MEDS: inSUlin ASPART (NovoLOG) 1 UNIT/0.01 ML (CHARGE PER UNIT) SC SCH ×2 (06:13→11:41)
[2022-10-25 08:00] VITALS: BP 145/82
[2022-10-25] MEDS ORDERED: ASPIRIN E.C. 81 MG (ECOTRIN) TAB PO SCH (09:00)
[2022-10-25] MEDS: NS IV 1000 ML 1,000 ML IV SCH ×2 (09:21→11:29)
[2022-10-25] MEDS: DOCUSATE SODIUM 100 MG (COLACE) CAP PO SCH (09:22)
[2022-10-25] MEDS: TICAGRELOR 90 MG TABLET (BRILINTA) PO SCH (09:22)
--- NOTE | 2022-10-25 09:52 | Discharge Summary ---
Discharge Summary Hospital Course Was the Problem List Reviewed?: Yes Problems/Dx: (1) NSTEMI (non-ST elevated myocardial infarction) Hospital Course Date of Admission: Oct 23, 2022 at 23:19 Admission Diagnosis : Family Physician/Provider: Robin Martinez MD Date of Discharge: 10/25/22 Discharge Diagnosis: [ ] Hospital Course: Patient had an uneventful hospital course after he was admitted for chest pain found to have elevated troponin underwent cardiac catheterization with in tervention and was discharged in improved condition. Labs and Pending Lab Test: Laboratory Tests 10/24/22 11:08: Glucometer 236H 10/24/22 15:58: Glucometer 307H 10/24/22 21:09: Glucometer 256H 10/25/22 04:40: White Blood Count 7.4, Red Blood Count 4.32, Hemoglobin 12.6L, Hematocrit 36L, Mean Corpuscular Volume 84, Mean Corpuscular Hemoglobin 29, Mean Corpuscular Hemoglobin Concent 35, Red Cell Distribution Width 12.8, Platelet Count 145, Mean Platelet Volume 10.6, Immature Granulocyte % (Auto) 1, Neutrophils (%) (Auto) 71, Lymphocytes (%) (Auto) 14, Monocytes (%) (Auto) 9, Eosinophils (%) (Auto) 4, Basophils (%) (Auto) 0, Neutrophils # (Auto) 5.3, Lymphocytes # (Auto) 1.1, Monocytes # (Auto) 0.7, Eosinophils # (Auto) 0.3, Basophils # (Auto) 0.0, Immature Granulocyte # (Auto) 0.0, Sodium Level 137, Potassium Level 4.6, Chloride Level 108H, Carbon Dioxide Level 22, Anion Gap 7, Blood Urea Nitrogen 17, Creatinine 0.86, Estimat Glomerular Filtration Rate 108, BUN/Creatinine Ratio 20, Glucose Level 226H, Calcium Level 8.3L, Corrected Calcium 8.8, Phosphorus Level 2.1L, Magnesium Level 2.0, Total Bilirubin 0.4, Aspartate Amino Transf (AST/SGOT) 19, Alanine Aminotransferase (ALT/SGPT) 34, Alkaline Phosphatase 56, Total Protein 5.5L, Albumin 3.4 Home Meds Active Aspirin EC (Aspirin) 81 Mg Tablet.dr 81 Mg PO DAILY Brilinta (Ticagrelor) 90 Mg Tablet 90 Mg PO BID Metformin HCl 1,000 Mg Tablet 1,000 Mg PO BID Hold metformin for 48 hours Carafate (Sucralfate) 1 Gm Tablet 1 Gm PO ACHS Protonix (Pantoprazole Sodium) 40 Mg Tablet.dr 40 Mg PO DAILY Reported Glyburide 5 Mg Tablet 5 Mg PO DAILY LAST FILLED 03-18-2020 #90/90 DAY SUPPLY Bystolic (Nebivolol HCl) 5 Mg Tablet 5 Mg PO HS Simvastatin 40 Mg Tablet 40 Mg PO HS LAST FILLED 07-14-2020 #90/90 DAY SUPPLY Zinc 50 Mg Tablet 50 Mg PO DAILY Coq-10 (Ubidecarenone) 100 Mg Capsule 100 Mg PO DAILY Cinnamon (Cinnamon Bark) 500 Mg Capsule 500 Mg PO DAILY Multivitamin 1 Each Tablet 1 Each PO DAILY Soliqua 100 Unit-33 Mcg/ml Pen (Insulin Glargine/Lixisenatide) 3 Ml Insuln.pen 30 Units SC DAILY Farxiga (Dapagliflozin Propanediol) 10 Mg Tablet 10 Mg PO DAILY Lisinopril-Hctz 20-12.5 mg Tab (Lisinopril/Hydrochlorothiazide) 1 Each Tablet 1 Ea PO BID Assessment/Pt Instructions pcp 1 week Discharge Planning: <30 minutes discharge planning Discharge Instructions Discharge Diet: No Restrictions Activity as Tolerated: Yes Discharge Physical Examination Vital Signs Vital Signs Date Time Temp Pulse Resp B/P (MAP) Pulse Ox O2 Delivery O2 Flow Rate FiO2 10/25/22 08:00 36.5 85 14 145/82 (103) 99 Nasal Cannula 2.00 10/23/22 23:54 21 General Appearance: No Apparent Distress, WD/WN Allergies: Coded Allergies: No Known Drug Allergies (Unverified , 05/14/19) Discharge Summary Date of Admission Oct 23, 2022 at 23:19 Date of Discharge Discharge Date: Oct 25, 2022 Admission Diagnosis Chest pain Hypertensive urgency Diabetes Discharge Diagnosis Cardiology consult monitor blood pressure LASHA BURNETT DO Oct 25, 2022 09:52
[2022-10-25 11:00] VITALS: BP 145/82
--- NOTE | 2022-10-25 11:31 | Cardiology Progress Note ---
Subjective Date Seen by Provider: Oct 25, 2022 Time Seen by Provider: 11:29 Subjective/Events-last exam Patient was seen at bedside, laying down comfortably, feeling well. No new complain Review of Systems General: No Chills, No Night Sweats, No Fatigue, No Malaise, No Appetite, No Other HEENT: No Head Aches, No Visual Changes, No Eye Pain, No Ear Pain, No Dysphasia , No Sinus Congestion, No Post Nasal Drip, No Sore Throat, No Other Pulmonary: No Dyspnea, No Cough, No Pleuritic Chest Pain, No Other Cardiovascular: No: Chest Pain, Palpitations, Orthopnea, Paroxysmal Noc. Dyspnea, Edema, Lt Headedness, Other Objective-Cardiology Exam Last Set of Vital Signs Vital Signs 10/23/22 10/25/22 23:54 08:00 Temp 36.5 Pulse 85 Resp 14 B/P (MAP) 145/82 (103) Pulse Ox 99 O2 Delivery Nasal Cannula O2 Flow Rate 2.00 FiO2 21 I&O Intake and Output 10/25/22 00:00 Intake Total 5840 ml Output Total 1750 ml Balance 4090 ml Intake Oral 4940 ml IV Total 900 ml Output Urine Total 1750 ml # Voids 1 General: Alert, Oriented X3, Cooperative HEENT: Atraumatic, PERRLA Neck: Supple, No JVD, No Thyromegaly Lungs: Clear to Auscultation, Normal Air Movement Heart: Regular Rate, Normal S1, Normal S2, No Murmurs Abdomen: Normal Bowel Sounds, Soft, No Tenderness, No Hepatosplenomegaly, No Masses Extremities: No Clubbing, No Cyanosis, No Edema, Normal Pulses, No Tenderness/Swelling Skin: No Rashes, No Breakdown, No Significant Lesion Neuro: Normal Gait, Normal Speech, Strength at 5/5 X4 Ext, Normal Tone, Sensation Intact Psych/Mental Status: Mental Status NL, Mood NL Results Lab Laboratory Tests 10/25/22 04:40 A/P-Cardiology Admission Diagnosis Chest pain Coronary artery disease Hypertension Hyperlipidemia Diabetes mellitus Assessment/Plan Chest pain, unstable angina, status post cardiac catheterization and stenting to the LAD Coronary artery disease, cardiac catheterization carried out on October 24, 2022 with 95% stenosis in the proximal LAD successful stenting using diana point 3.5 x 18 mm with excellent results. Patient was educated on taking aspirin and Brilinta for the next 6 months Hypertension, monitor blood pressure Hyperlipidemia, lipid profile was done on October 24, 2022 with total cholesterol 109, triglyceride 290, LDL 41. Educated on diet control and compliance with medication Diabetes mellitus, followed and managed by primary care team Gastroesophageal reflux disease Ex tobaccoism, stopped smoking recently. Educated on smoking cessation Family history of heart disease. BMI 35, educated on weight loss CITLALLI MARTIN MD Oct 25, 2022 11:31
== END 2022-10-25 11:25 | disposition home or self-care (01) ==
LOC: EDUNIT# 19:21 → ER FS 19:22 → CSD 23:19
PROVIDERS: ADMIT Internal Medicine; ATTEND Internal Medicine
DX: I25.10 Atherosclerotic heart disease of native coronary artery without angina pectoris (principal); I21.4 Non-ST elevation (NSTEMI) myocardial infarction; I16.0 Hypertensive urgency; I10 Essential (primary) hypertension; E78.5 Hyperlipidemia, unspecified; E11.9 Type 2 diabetes mellitus without complications; K21.9 Gastro-esophageal reflux disease without esophagitis; E66.9 Obesity, unspecified; Z68.34 Body mass index [BMI] 34.0-34.9, adult; Z87.891 Personal history of nicotine dependence
CPT/HCPCS: 36415; 71045; 80053 ×3; 80061; 82947 ×2; 83735 ×2; 84100 ×2; 84484 ×2; 85025 ×3; 99283; C8929; 36221; 93005; 93306; 93458; 96372; 96374; 96375; 96376

== ENCOUNTER 2022-10-26 09:58 | Observation (INO) | payer BC ==
[2022-10-26] VITALS (7 sets, daily range): BP systolic 115–141; BP diastolic 71–81
[~2022-10-26] VITALS: Ht 180.3 cm; Wt 112.0 kg
[~2022-10-26 09:58] MED LIST changes: +ASPI-1238 PO; +TICA90TA PO
[2022-10-26] MEDS ORDERED: ASPIRIN 81 MG CHEW (CHILDREN'S ASA) PO ONE (10:30)
[2022-10-26] MEDS: NITROGLYCERIN 0.4 MG SL TABS BTL 25'S SL PRN ×2 (10:30→10:45)
--- NOTE | 2022-10-26 10:32 | ED Chest Pain ---
General Chief Complaint: Chest Pain Stated Complaint: CHEST PAINS | BLOOD PRESSURE HIGH | POST OP Nursing Triage Note: PT AMB TO RM 9 WITH COMPLAINT OF CHEST AND ARM PAIN. STARTED THIS MRWARREN WHEN HE WOKE UP. HAD STENT PLACED ON WEDNESDAY AND WAS DISCHARGED YESTERDAY. TOOK BRILINTA AND OTHER MEDICATIONS THIS MORNING. LAST HAD ASPIRIN LAST NIGHT. Source: patient, family Exam Limitations: no limitations History of Present Illness Date Seen by Provider: Oct 26, 2022 Time Seen by Provider: 10:20 Initial Comments 47-year-old male who presents emergency department today for chest pain. He states symptoms started about an hour prior to arrival. They are exactly the same as his presentation on Wednesday described as midsternal pressure with radiation to his left arm and some tingling in his left hand. Notably on Wednesday he went to the Lab and had 95% stenosis in his LAD, had a stent placed. He is on Brilinta and has not missed any doses. He does endorse some shortness of breath. No nausea vomiting or diaphoresis he does have a history of high blood pressure high cholesterol and diabetes mellitus. Pain at present is an 8/10 without obvious aggravating or alleviating factors. It is constant. It is moderate to severe Allergies and Home Medications Allergies Coded Allergies: No Known Drug Allergies (Unverified , 05/14/19) Patient Home Medication List Home Medication List Reviewed: Yes Aspirin (Aspirin EC) 81 Mg Tablet.dr, 81 MG PO DAILY Prescribed by: CITLALLI CLAY on 10/24/22 1311 Last Action: Reviewed Atorvastatin Calcium (Atorvastatin Calcium) 80 Mg Tablet, 80 MG PO HS Prescribed by: CITLALLI CLAY on 10/27/22 0628 Cinnamon Bark (Cinnamon) 500 Mg Capsule, 500 MG PO DAILY, (Reported) Entered as Reported by: MALIK LEONG on 12/02/201606 Last Action: Reviewed Dapagliflozin Propanediol (Farxiga) 10 Mg Tablet, 10 MG PO DAILY, (Reported) Entered as Reported by: MALIK LENOG on 12/02/201606 Last Action: Converted Glyburide (Glyburide) 5 Mg Tablet, 5 MG PO DAILY, (Reported) Entered as Reported by: MALIK LEONG on 12/02/201606 Last Action: Converted Insulin Glargine/Lixisenatide (Soliqua 100 Unit-33 Mcg/ml Pen) 3 Ml Insuln.pen, 30 UNITS SC DAILY, (Reported) Entered as Reported by: MALIK LEONG on 12/02/201606 Last Action: Converted Isosorbide Mononitrate (Isosorbide Mononitrate ER) 30 Mg Tab.er.24h, 30 MG PO DAILY Prescribed by: CITLALLI CLAY on 10/27/22627 Lisinopril/Hydrochlorothiazide (Lisinopril-Hctz 20-12.5 mg Tab) 1 Each Tablet, 1 EA PO BID, (Reported) Entered as Reported by: MALIK LEONG on 12/02/201606 Last Action: Converted Metformin HCl (Metformin HCl) 1,000 Mg Tablet, 1,000 MG PO BID Prescribed by: CITLALLI CLAY on 10/24/221310 Last Action: Held Multivitamin (Multivitamin) 1 Each Tablet, 1 EACH PO DAILY, (Reported) Entered as Reported by: MALIK LEONG on 12/02/201606 Last Action: Converted Nebivolol HCl (Bystolic) 5 Mg Tablet, 5 MG PO HS, (Reported) Entered as Reported by: MALIK LEONG on 12/02/201606 Last Action: Converted Pantoprazole Sodium (Protonix) 40 Mg Tablet.dr, 40 MG PO DAILY Prescribed by: LASHA BURNETT on 12/03/201111 Last Action: Continued Simvastatin (Simvastatin) 40 Mg Tablet, 40 MG PO HS, (Reported) Entered as Reported by: MALIK LEONG on 12/02/201606 Last Action: Held Sucralfate (Carafate) 1 Gm Tablet, 1 GM PO ACHS Prescribed by: LASHA BURNETT on 12/03/201111 Last Action: Continued Ticagrelor (Brilinta) 90 Mg Tablet, 90 MG PO BID Prescribed by: CITLALLI CLAY on 10/24/22 131 Last Action: Reviewed Ubidecarenone (Coq-10) 100 Mg Capsule, 100 MG PO DAILY, (Reported) Entered as Reported by: MALIK LEONG on 12/02/201606 Last Action: Converted Zinc (Zinc) 50 Mg Tablet, 50 MG PO DAILY, (Reported) Entered as Reported by: MALIK LEONG on 2/8/21 1607 Review of Systems Review of Systems Constitutional: no symptoms reported EENTM: No Symptoms Reported Respiratory: Shortness of Air Cardiovascular: Chest Pain Gastrointestinal: No Symptoms Reported Genitourinary: No Symptoms Reported Musculoskeletal: no symptoms reported Skin: no symptoms reported Psychiatric/Neurological: No Symptoms Reported Endocrine: No Symptoms Reported Hematologic/Lymphatic: No Symptoms Reported Past Zvizjdc-Ltoyda-Lsdkvv Hx Patient Social History Tobacco Use?: No Use of E-Cig and/or Vaping dev: No Substance use?: No Alcohol Use?: No Pt feels they are or have been: No Seasonal Allergies Seasonal Allergies: No Past Medical History Surgeries: Yes (left wrist) Tonsillectomy Respiratory: No Cardiac: Yes High Cholesterol, Hypertension Neurological: No Genitourinary: No Gastrointestinal: No Musculoskeletal: No Endocrine: Yes Diabetes, Insulin dep HEENT: No Cancer: No Psychosocial: No Integumentary: No Blood Disorders: No Family Medical History Reviewed Nursing Family Hx Heart Disease Physical Exam Vital Signs Vital Signs - First Documented 10/26/22 10:02 Temp 36.0 Pulse 86 Resp 15 B/P (MAP) 206/111 (142) Pulse Ox 97 O2 Delivery Room Air Capillary Refill : Less Than 3 Seconds Height, Weight, BMI Height: 5'11.00" Weight: 220lbs. 0oz. [id number]; 32.00 BMI Method:Stated General Appearance: No Apparent Distress, WD/WN HEENT: Normal ENT Inspection, Pharynx Normal Neck: Normal Inspection, Supple Respiratory: Chest Non Tender, Lungs Clear, Normal Breath Sounds, No Accessory Muscle Use, No Respiratory Distress Cardiovascular: Regular Rate, Rhythm, No Murmur, Normal Peripheral Pulses, Other (Hypertension) Gastrointestinal: Normal Bowel Sounds, No Organomegaly, Non Tender, Soft Extremity: Normal Capillary Refill, Normal Inspection, Normal Range of Motion, Non Tender, No Calf Tenderness Neurologic/Psychiatric: Alert, Oriented x3, Normal Mood/Affect Skin: Normal Color, Warm/Dry Lymphatic: No Adenopathy Critical Care Note Critical Care Total Time (minutes) 30 min Progress/Results/Core Measures Results/Orders My Orders Orders - LIANNE TORRES DO Ekg Tracing (10/26/22 10:02) Troponin I Pat (10/26/22 10:21) Chest 1 View, Ap/Pa Only (10/26/22 10:21) Cbc With Automated Diff (10/26/22 10:21) Comprehensive Metabolic Panel (10/26/22 10:21) Aspirin Chewable Tablet (Baby Aspirin Ch (10/26/22 10:30) Protime With Inr (10/26/22 10:21) Partial Thromboplastin Time (10/26/22 10:21) Ed Iv/Invasive Line Start (10/26/22 10:21) Nitroglycerin 0.4 Mg Btl 25's (Nitrostat (10/26/22 10:30) Vital Signs/I&O 10/26/22 10:02 Temp 36.0 Pulse 86 Resp 15 B/P (MAP) 206/111 (142) Pulse Ox 97 O2 Delivery Room Air Blood Pressure Mean: 142 Comment Sinus rhythm at 83 bpm. Normal intervals. Normal axis. Upsloping with J-point elevation in 1 and aVL, 2 and aVF. Concern for hyperacuity. No STEMI. Departure Communication (Admissions) 1025:Spoke with Dr Clay about patient pain and some hyperacuity of ST segments on EKG. Requests activation of labor delivery specialist given very recent stent placement. Patient is slightly hypertensive. He is given aspirin. We have called specialty department supervisor who is activating the Supervisor Pipeline at this time. Patient updated on the plan and they are comfortable BRENT current plan of care. Impression Primary Impression: Chest pain Qualified Codes: R07.9 - Chest pain, unspecified Disposition: ADMITTED INPATIENT Condition: Stable Admissions Decision to Admit Reason: Admit from ER (General) Departure-Patient Inst. Referrals: CATINA CHEW MD (PCP/Family) Primary Care Physician Scripts Isosorbide Mononitrate (Isosorbide Mononitrate ER) 30 Mg Tab.er.24h 30 MG PO DAILY, #30 TAB 3 Refills Prov: CITLALLI CLAY MD 10/27/22 Atorvastatin Calcium (Atorvastatin Calcium) 80 Mg Tablet 80 MG PO HS, #30 TAB 3 Refills Prov: CITLALLI CLAY MD 10/27/22 LIANNE TORRES DO Oct 26, 2022 10:32
--- NOTE | 2022-10-26 10:50 | Diagnostic Imaging Report ---
INDICATION: Chest pain. TIME OF EXAM: 10:32 AM. COMPARISON: Correlation is made with the prior chest from 10/23/2022. FINDINGS: Heart size is normal. There is some linear atelectasis in the left base. Otherwise, the lungs are clear. No effusion or pneumothorax is identified. IMPRESSION: Minimal left basilar atelectasis or scarring. No acute cardiopulmonary process is detected. Dictated by: Dictated on workstation # [id number]
[2022-10-26] MEDS ORDERED: fentaNYL INJ 100 MCG/2 ML AMP ONE ×2 (10:51→11:35)
[2022-10-26] MEDS ORDERED: MIDAZOLAM 5 MG/5 ML (VERSED) VIAL ONE (10:51)
[2022-10-26] MEDS ORDERED: HEParin 1000 UNIT/ML (10ML VIAL) FOR BOLUS ONE (10:51)
[2022-10-26] MEDS ORDERED: LIDOCAINE 1% INJ 30 ML (XYLOCAINE) VIAL ONE (10:51)
[2022-10-26] MEDS ORDERED: NITRO DRIP 25000 MCG/D5W 250 ML IV ONE (10:52)
[2022-10-26] MEDS ORDERED: NS IV 1000 ML 1,000 ML ONE (10:52)
[2022-10-26] MEDS ORDERED: HEParin (CATH LAB) 2,000 ML IV ONE (10:52)
[2022-10-26 10:58] LABS: BASOPHILS % (AUTO) 1 % (0-10); EOSINOPHILS # (AUTO) 0.5 10^3/uL (0.0-0.3); EOSINOPHILS % (AUTO) 6 % (0-10); HEMATOCRIT 45 % (40-54); HEMOGLOBIN 15.9 g/dL (13.3-17.7); LYMPHOCYTES # (AUTO) 1.4 10^3/uL (1.0-4.0); LYMPHOCYTES % (AUTO) 18 % (12-44); MEAN CORPUSCULAR HEMOGLOBIN 29 pg (25-34); MEAN CORPUSCULAR HGB CONC 35 g/dL (32-36); MEAN CORPUSCULAR VOLUME 82 fL (80-99); MEAN PLATELET VOLUME 10.5 fL (9.0-12.2); MONOCYTES # (AUTO) 0.9 10^3/uL (0.0-1.0); MONOCYTES % (AUTO) 11 % (0-12); NEUTROPHILS # (AUTO) 5.1 10^3/uL (1.8-7.8); NEUTROPHILS % (AUTO) 64 % (42-75); PLATELET COUNT 193 10^3/uL (130-400); WHITE BLOOD COUNT 7.9 10^3/uL (4.3-11.0)
[2022-10-26 11:04] LABS: INR 0.9 (0.8-1.4); PROTHROMBIN TIME PATIENT 12.1 SEC (12.2-14.7)
[2022-10-26 11:08] LABS: ALANINE AMINOTRANSFERASE 37 U/L (0-55); ALBUMIN 4.4 GM/DL (3.2-4.5); ALKALINE PHOSPHATASE 73 U/L (40-136); BILIRUBIN,TOTAL 0.7 MG/DL (0.1-1.0); BUN/CREATININE RATIO 17; CALCIUM 10.4 MG/DL (8.5-10.1); CARBON DIOXIDE 23 MMOL/L (21-32); CHLORIDE 105 MMOL/L (98-107); CREATININE SERUM 0.89 MG/DL (0.60-1.30); GFR ESTIMATED 107; GLUCOSE 176 MG/DL (70-105); POTASSIUM 4.1 MMOL/L (3.6-5.0); SODIUM 138 MMOL/L (135-145); TOTAL PROTEIN 7.3 GM/DL (6.4-8.2)
--- NOTE | 2022-10-26 11:14 | Cardiac Procedure Note-CS/ASA ---
Pre-Procedure Note Pre-Op Procedure Note Date of Available H&P: Oct 26, 2022 Date H&P Reviewed: Oct 26, 2022 Time H&P Reviewed: 11:00 History & Physical: H&P Reviewed, Patient Examed, No changes noted Pre-Operative Diagnosis: CP Conscious Sedation Pre-Proced Time 11:00 ASA Score 3 For ASA 3 and 4: Consider anesthesia and medical clearance. Also, for patients with a history of failed moderate sedation consider anesthesia. Airway Lungs Heart ASA score ASA 1: a normal healthy patient ASA 2: a patient with a mild systemic disease (mid diabetes, controlled hypertension, obesity ASA 3: a patient with a severe systemic disease that limits activity (angina, COPD, prior Myocardial infarction) ASA 4: a patient with an incapacitating disease that is a constant threat to life (CHF, renal failure) ASA 5: a moribund patient not expected to survive 24 hrs. (ruptured aneurysm) ASA 6: a declared brain- patient whose organs are being harvested. For emergent operations, add the letter E after the classification Mallampati Classification Grade 3 Sedation Plan Analgesia, Amnesia, Plan communicated to team members, Discussed options with patient/fam, Discussed risks with patient/fam The patient is an appropriate candidate to undergo the planned procedure, sedation, and anesthesia. The patient immediately re-assessed prior to indication. CITLALLI MARTIN MD Oct 26, 2022 11:14
--- NOTE | 2022-10-26 11:18 | Cardiology History & Physical ---
HPI-Cardiology Cardiology Consultation Date of Consultation 10/26/22 Date of Admission Time Seen by Provider: 11:00 Indication: Chest pain HPI 47 years old gentleman with coronary artery disease, had a cardiac catheterization and stenting to the proximal LAD on October 24, 2021, patient was doing well yesterday, started to have chest pain this morning dull in nature on the left side of his chest radiating to the left arm similar to the pain that he had prior to the stent. Came into the emergency room nitroglycerin initially did not help the pain, later on had some easing of the pain but continued to have some chest pressure, blood pressure was significantly elevated. No shortness of breath. No palpitation or syncope PMH-Cardiology Immunizations Up To Date Date of Influenza Vaccine: Jul 25, 2022 Seasonal Allergies Seasonal Allergies: No Surgeries Yes (left wrist) Respiratory No Cardiovascular Yes Neurological No Genitourinary No Gastrointestinal No Musculoskeletal No Endocrine Yes Diabetes, Insulin dep HEENT No Cancer No Psychosocial No Integumentary No Blood Transfusions No Other PMHx Discussed below Social History Patient Social History Marrital Status: Employed/Student: employed Have you traveled recently?: No Alcohol Use?: No Family Hx Significant Family History: Heart Disease ROS-Cardiology Review of Systems General: No Chills, No Night Sweats, No Fatigue, No Malaise, No Appetite HEENT: No Head Aches, No Visual Changes, No Eye Pain, No Ear Pain, No Dysphasia, No Sinus Congestion, No Post Nasal Drip, No Sore Throat Pulmonary: No Dyspnea, No Cough, No Pleuritic Chest Pain Cardiovascular: Chest Pain; No: Palpitations, Orthopnea, Paroxysmal Noc. Dyspnea, Edema, Lt Headedness Gastrointestinal: No: Nausea, Vomiting, Abdominal Pain, Diarrhea, Constipation, Melena, Hematochezia Genitourinary: No Dysuria, No Frequency, No Incontinence, No Hematuria, No Retention Musculoskeletal: No: neck pain, shoulder pain, arm pain, back pain, hand pain, leg pain, foot pain Neurological: No: Weakness, Numbness, Incoordination, Change in speech, Confus ion, Seizures Home Medications & Allergies Allergies: Coded Allergies: No Known Drug Allergies (Unverified , 05/14/19) Home Medication List Reviewed: Yes Exam-Cardiology Vital Signs Vital Signs Date Time Temp Pulse Resp B/P (MAP) Pulse Ox O2 Delivery O2 Flow Rate FiO2 1/2/23 11:08 86 10 121/79 97 Room Air 10/26/22 10:02 36.0 Exam General Appearance: Alert, Oriented X3, Cooperative, No Acute Distress HEENT: Atraumatic, PERRLA Respiratory: Clear to Auscultation, Normal Air Movement Cardiovascular: Regular Rate, Normal S1, Normal S2, No Murmurs Abdominal: Normal Bowel Sounds, Soft, No Tenderness, No Hepatosplenomegaly, No Masses Extremities: No Clubbing, No Cyanosis, No Edema, Normal Pulses, No Tenderness/Swelling Skin: No Rashes, No Breakdown, No Significant Lesion Neuro: Normal Gait, Normal Speech, Strength at 5/5 X4 Ext, Normal Tone, Sensation Intact Psych/Mental Status: Mental Status NL, Mood NL Results Labs Labs Laboratory Tests 10/26/22 10:48: White Blood Count 7.9, Red Blood Count 5.50, Hemoglobin 15.9#, Hematocrit 45, Mean Corpuscular Volume 82, Mean Corpuscular Hemoglobin 29, Mean Corpuscular Hemoglobin Concent 35, Red Cell Distribution Width 12.5, Platelet Count 193, Mean Platelet Volume 10.5, Immature Granulocyte % (Auto) 0, Neutrophils (%) (Auto) 64, Lymphocytes (%) (Auto) 18, Monocytes (%) (Auto) 11, Eosinophils (%) (Auto) 6, Basophils (%) (Auto) 1, Neutrophils # (Auto) 5.1, Lymphocytes # (Auto) 1.4, Monocytes # (Auto) 0.9, Eosinophils # (Auto) 0.5H, Basophils # (Auto) 0.0, Immature Granulocyte # (Auto) 0.0, Sodium Level 138, Potassium Level 4.1, Chloride Level 105, Carbon Dioxide Level 23, Anion Gap 10, Blood Urea Nitrogen 15, Creatinine 0.89, Estimat Glomerular Filtration Rate 107, BUN/Creatinine Ratio 17, Glucose Level 176H, Calcium Level 10.4H, Corrected Calcium 10.1, Total Bilirubin 0.7, Aspartate Amino Transf (AST/SGOT) 23, Alanine Aminotransferase (ALT/SGPT) 37, Alkaline Phosphatase 73, Troponin I < 0.028, Total Protein 7.3, Albumin 4.4 A/P-Cardiology Admission Diagnosis Chest pain Coronary artery disease Hypertension Hyperlipidemia Admission Status: Observation Assessment/Plan Chest pain, unstable angina, having another episode of acute chest pain, some improvement with nitroglycerin but continued to have chest pain. Planning to proceed with emergency cardiac catheterization Coronary artery disease, cardiac catheterization carried out on October 24, 2022 with 95% stenosis in the proximal LAD successful stenting using diana point 3.5 x 18 mm with excellent results. I will repeat cardiac catheterization Hypertension, poor control, will titrate his medication. Hyperlipidemia, lipid profile was done on October 24, 2022 with total cholesterol 109, triglyceride 290, LDL 41. Educated on diet control and compliance with medication Diabetes mellitus, followed and managed by primary care team Gastroesophageal reflux disease Ex tobaccoism, stopped smoking recently. Educated on smoking cessation Family history of heart disease. BMI 35, educated on weight loss Clinical Quality Measures AMI/AHF: ASA po Prior to arrival: CITLALLI Posey MD Oct 26, 2022 11:18
[2022-10-26] MEDS ORDERED: MIDAZOLAM 2 MG/2 ML (VERSED) VIAL ONE (11:35)
[2022-10-26] MEDS ORDERED: PATIENT MAY USE OWN MEDS, ALL PO SCH (12:15)
[2022-10-26] MEDS ORDERED: TICAGRELOR 90 MG TABLET (BRILINTA) PO ONE (12:16)
--- NOTE | 2022-10-26 12:18 | Cardiac Cath Report ---
Cardiac Cath Report Physician (s)/Residential Sales Representative (s) Physician CITLALLI MARTIN MD Pre-Procedure Diagnosis Pre-Procedure Diagnosis: CP Post-Procedure Note Procedure Start Date: Oct 26, 2022 Name of Procedure: Left heart catheterization Balloon angioplasty to the diagonal artery Balloon angioplasty to the LAD Findings/Procedure Note PROCEDURE NOTE: 47 years old gentleman admitted with acute chest pain, had a recent stent placement, no EKG changes, having severe waxing and waning chest pain. I decided to proceed with emergency cardiac catheterization possible PTCA. After explaining the procedure to the patient, all pros and cons were explained, all questions were answered. The patient signed the consent and then he was placed in the cardiac catheterization laboratory. Groin was prepped in SL fashion local anesthesia was used. Sheath placed in the right femoral artery. Vijaya' right and left catheter were used to access the coronary system. Vijaya right was prolapsed to the left ventricular cavity, pressure was measured, pullback LV to aorta was done. Patient has haziness at the ostium of the diagonal artery with 95% stenosis. Probably due to the stent jailing that artery. I gave him 5000 units of hepar in, EBU 3.5 guide was used and I advanced a BMW wire to the diagonal artery. I could not advance 2.5 balloon to the diagonal, it kept getting stuck on the struts from that LAD stent. I kept the wire in the diagonal then I advanced whisper extra-support in the diagonal artery and advanced the balloon over the whisper wire and I was able to advance it, did multiple balloon angioplasty and through that stent with some improvement, residual stenosis is 40%. The BMW wire was retracted and advanced in the LAD then I tucked back the LAD stent with balloon in the LAD using 4 x 20 noncompliant balloon. Angiogram showed satisfactory results with significant improvement in the flow. At the end of the procedure the sheath was removed. Closure device was deployed FINDINGS: Hemodynamics LV 122/14, end-diastolic pressure 14 Aorta 138/84 mean of 105 ANATOMY: Left Main is free of obstructive disease Left Anterior Descending has patent stent in the LAD with no significant obstructive disease Diagonal artery is jailed by the stent with 95% stenosis at the ostium. Some haziness was noted, successful multiple inflation balloon angioplasty through the stent in the ostial diagonal artery with improvement and 40% residual stenosis. I did balloon angioplasty in the LAD after the intervention on the diagonal to tuck back the struts of the stents against the wall using noncompliant 4 x 20 balloon Left Circumflex is moderate in size with no obstructive disease Right Coronary Artery is dominant artery with no obstructive disease LV Gram was not done, pressure was measured PERCUTANEOUS INTERVENTION: Pre stenosis 95% Post Stenosis 40% Pre JENNIE flow 2 Post JENNIE flow 3 Dominance right coronary artery CONCLUSION: 1. Severe stenosis at the ostium of a diagonal artery with some haziness successful balloon angioplasty using 2.5 x 20 balloon with excellent results. 2. Balloon angioplasty in the stent using 4 x 20 noncompliant balloon to tuck back of the struts of the LAD stent 3. Otherwise nonobstructive disease 4. Normal left ventricular end-diastolic pressure DISCUSSION AND RECOMMENDATION: Patient was restarted on Bystolic, lisinopril, HCTZ, aspirin and Brilinta, Protonix. Holding metformin and I added Imdur 30 mg daily due to the chest pain and the severe hypertension on arrival to the emergency room Anesthesia Type: Conscious Sedation Estimated blood loss (mL): 15 ml Contrast Amount: 95 ml Total Radiation Dose: 1424 mGy Post-Procedure Diagnosis Post-operative diagnosis: Chest pain Coronary artery disease Hypertension Hyperlipidemia CITLALLI MARTIN MD Oct 26, 2022 12:18
[2022-10-26] MEDS ORDERED: oxyCODONE/APAP 5/325MG (PERCOCET 5) TABLET PO NR (13:00)
[2022-10-26] MEDS ORDERED: oxyCODONE/APAP 5/325MG (PERCOCET 5) TABLET ONE (13:13)
[2022-10-26] MEDS: ISOSORBIDE MONONITRATE 30 MG (IMDUR) TAB PO SCH (13:21)
[2022-10-26] MEDS: NS IV 1000 ML 1,000 ML IV SCH ×2 (15:38→22:33)
[2022-10-26] MEDS: SUCRALFATE 1 GM (CARAFATE) TAB PO SCH ×2 (15:38→21:40)
[2022-10-26] MEDS ORDERED: NON-FORMULARY MEDICATION 1 EA EA (Nebivolol HCl (Bystolic) 5 MG) PO SCH (21:00)
[2022-10-26] MEDS: lisINopril 20 MG (PRINIVIL) TABLET PO SCH (21:40)
[2022-10-26] MEDS: HydroCHLOROthiazide CAP/TABLET 12.5 MG TAB PO SCH (21:40)
[2022-10-26] MEDS: TICAGRELOR 90 MG TABLET (BRILINTA) PO SCH (21:40)
[2022-10-27] VITALS: BP 144/76
[2022-10-27] MEDS ORDERED: ACETAMINOPHEN 500 MG TAB (TYLENOL) ONE (01:10)
[2022-10-27] MEDS ORDERED: ACETAMINOPHEN 500 MG TAB (TYLENOL) PO PRN (01:15)
[2022-10-27 04:00] VITALS: BP 134/78
[2022-10-27 04:58] LABS: HEMATOCRIT 38 % (40-54); HEMOGLOBIN 13.2 g/dL (13.3-17.7); MEAN CORPUSCULAR HEMOGLOBIN 29 pg (25-34); MEAN CORPUSCULAR HGB CONC 35 g/dL (32-36); MEAN CORPUSCULAR VOLUME 84 fL (80-99); MEAN PLATELET VOLUME 10.6 fL (9.0-12.2); PLATELET COUNT 161 10^3/uL (130-400); WHITE BLOOD COUNT 7.6 10^3/uL (4.3-11.0)
[2022-10-27 05:14] LABS: CALCIUM 9.2 MG/DL (8.5-10.1)
[2022-10-27 05:18] LABS: CREATININE SERUM 0.93 MG/DL (0.60-1.30)
[2022-10-27] MEDS: SUCRALFATE 1 GM (CARAFATE) TAB PO SCH (06:09)
[2022-10-27] MEDS ORDERED: ISOS30TA82 PO ×2 (06:28)
[2022-10-27] MEDS ORDERED: ATOR80TA76 PO ×2 (06:28)
--- NOTE | 2022-10-27 06:29 | Discharge Inst-Post CATH ---
Discharge Inst-CATH/EP Problems Reviewed?: Yes Post Cardiac Cath/EP D/C Inst Follow Up/Plan Hold Metformin for 48 hours <b>CARDIAC CATH/EP PROCEDURE DISCHARGE INSTRUCTIONS</b> ACTIVITY * Go Home directly and rest. * Limit activity of the leg (or wrist if it was used) for 7 days including aerobics, swimming, jogging, bicycling, etc. * Restrict stair-climbing for 7 days if possible, if not, climb up with your non-cath leg, then bring together on the same step. * Avoid lifting, pushing, pulling or excessive movement of the affected extremity for 7 days. * Customary sexual activity may be resumed after 2 days-use caution not to use a position that strains or causes pain to the affected extremity. * No driving for 24 hours. * NO SMOKING. * Avoid straining for bowel movements for 7 days. * Gentle walking on level ground is allowed. * Returning to work will depend on the type of procedure and the results. Your doctor will discuss this with you. CALL YOUR DOCTOR FOR ANY OF THE FOLLOWING: *If bleeding from the puncture site occurs- Apply gentle pressure to site with clean cloth and call your doctor or EMS. * If a knot or lump forms under the skin, increases in size, or causes pain. * If bruising appears to be worsening or moving further down your leg instead of disappearing. * Temperature above 101 F. CARE OF YOUR GROIN INCISION; * Bruising or purple discoloration of the skin near the puncture site is common. * You may shower only, no bathtub bathing for 5 days. Be careful to avoid slipping as your leg may feel stiff. * If a closure device was used on your femoral artery, please see the attached guide regarding care of the device and your leg. * Leave dressing on FOR 24 hours. CARE OF YOUR WRIST INCISION; * Bruising or purple discoloration of the skin near the puncture site is common. * You may shower. * DO NOT submerge wrist. * Leave dressing on FOR 24 hours. CITLALLI MARTIN MD Oct 27, 2022 06:29
[2022-10-27] MEDS ORDERED: glyBURIDE 2.5 MG (MICRONASE) TAB PO SCH (07:00)
[2022-10-27] MEDS ORDERED: MULTIVIT W/MINERALS TAB (THERAGRAN M) PO SCH (07:00)
[2022-10-27 08:00] VITALS: BP 141/77
[2022-10-27] MEDS ORDERED: NITR0.4T42 SL ×2 (08:24)
--- NOTE | 2022-10-27 08:28 | Cardiology Progress Note ---
Subjective Date Seen by Provider: Oct 27, 2022 Time Seen by Provider: 08:26 Subjective/Events-last exam Patient was seen at bedside, feeling better, no further episodes of chest pain. Reporting some chest discomfort last night and it was minimal Review of Systems General: No Chills, No Night Sweats, No Fatigue, No Malaise, No Appetite, No Other HEENT: No Head Aches, No Visual Changes, No Eye Pain, No Ear Pain, No Dysphasia, No Sinus Congestion, No Post Nasal Drip, No Sore Throat, No Other Pulmonary: No Dyspnea, No Cough, No Pleuritic Chest Pain, No Other Cardiovascular: Chest Pain; No: Palpitations, Orthopnea, Paroxysmal Noc. Dyspnea, Edema, Lt Headedness, Other Objective-Cardiology Exam Last Set of Vital Signs Vital Signs 10/27/22 10/27/22 04:00 07:08 Temp 36.7 Pulse 71 Resp 18 B/P (MAP) 134/78 (96) Pulse Ox 97 O2 Delivery Nasal Cannula O2 Flow Rate 2.00 I&O Intake and Output 10/27/22 00:00 Intake Total 1600 ml Output Total 1600 ml Balance 0 ml Intake Oral 1600 ml Output Urine Total 1600 ml Daily Weight Change No General: Alert, Oriented X3, Cooperative, No Acute Distress HEENT: Atraumatic, PERRLA Lungs: Clear to Auscultation, Normal Air Movement Heart: Regular Rate, Normal S1, Normal S2, No Murmurs Abdomen: Normal Bowel Sounds, Soft, No Tenderness, No Hepatosplenomegaly, No Masses Extremities: No Clubbing, No Cyanosis, No Edema, Normal Pulses, No Tenderness/Swelling Skin: No Rashes, No Breakdown, No Significant Lesion Neuro: Normal Gait, Normal Speech, Strength at 5/5 X4 Ext, Normal Tone, Sensation Intact Psych/Mental Status: Mental Status NL, Mood NL Results Lab Laboratory Tests 10/26/22 10:48 10/27/22 04:33 A/P-Cardiology Admission Diagnosis Chest pain Coronary artery disease Hypertension Hyperlipidemia Assessment/Plan Chest pain, unstable angina, having another episode of acute chest pain, some improvement with nitroglycerin but continued to have chest pain. Feeling better today. Coronary artery disease, cardiac catheterization carried out on October 24, 2022 with 95% stenosis in the proximal LAD successful stenting using diana point 3.5 x 18 mm with excellent results. Cardiac catheterization was done on October 27, 2022 with balloon angioplasty to the diagonal artery through the stent in the LAD then I did balloon angioplasty back in the LAD. Good result, still have some recoil of at the ostium of the diagonal artery Continue with aspirin and Brilinta Hypertension, poor control, added Imdur and evaluate tolerance and response Hyperlipidemia, lipid profile was done on October 24, 2022 with total chol esterol 109, triglyceride 290, LDL 41. I change simvastatin to Lipitor 80 mg daily Diabetes mellitus, followed and managed by primary care team Educated on avoiding metformin for the next 48 hours Gastroesophageal reflux disease Ex tobaccoism, stopped smoking recently. Educated on smoking cessation Family history of heart disease. BMI 35, educated on weight loss Planning for discharge today Final diagnoses Chest pain Coronary artery disease Hypertension Hyperlipidemia Diabetes mellitus CITLALLI MARTIN MD Oct 27, 2022 08:28
[2022-10-27] MEDS: ISOSORBIDE MONONITRATE 30 MG (IMDUR) TAB PO SCH (08:34)
[2022-10-27] MEDS: NS IV 1000 ML 1,000 ML IV SCH (08:34)
[2022-10-27] MEDS: TICAGRELOR 90 MG TABLET (BRILINTA) PO SCH (08:34)
[2022-10-27] MEDS: lisINopril 20 MG (PRINIVIL) TABLET PO SCH (08:34)
[2022-10-27] MEDS: HydroCHLOROthiazide CAP/TABLET 12.5 MG TAB PO SCH (08:34)
[2022-10-27] MEDS ORDERED: NON-FORMULARY MEDICATION 1 EA EA (Dapagliflozin Propanediol (Farxiga) 10 MG) PO SCH (09:00)
[2022-10-27] MEDS ORDERED: GLYBURIDE 5 MG PO SCH (09:00)
[2022-10-27] MEDS ORDERED: NON-FORMULARY MEDICATION 1 EA EA (Multivitamin 1 EACH) PO SCH (09:00)
[2022-10-27] MEDS ORDERED: PANTOPRAZOLE 40 MG (PROTONIX) TAB PO SCH (09:00)
[2022-10-27] MEDS ORDERED: ASPIRIN E.C. 81 MG (ECOTRIN) TAB PO SCH (09:00)
[2022-10-27] MEDS ORDERED: NON-FORMULARY MEDICATION 1 EA EA (Ubidecarenone (Coq-10) 100 MG) PO SCH (09:00)
[2022-10-27] MEDS ORDERED: NON-FORMULARY MEDICATION 1 EA EA (Insulin Glargine/Lixisenatide (Soliqua 100 Unit-33 Mcg/m SC SCH (09:00)
[2022-10-27 14:24] VITALS: BP 141/77
== END 2022-10-27 10:45 | disposition home or self-care (01) ==
LOC: EDUNIT# 09:58 → ER 10:00 → CATH 10:34 → CSD 12:40
PROVIDERS: ADMIT Internal Medicine Cardiovascular Disease; ATTEND Internal Medicine Cardiovascular Disease
DX: I25.110 Atherosclerotic heart disease of native coronary artery with unstable angina pectoris (principal); I10 Essential (primary) hypertension; E78.5 Hyperlipidemia, unspecified; E11.9 Type 2 diabetes mellitus without complications; K21.9 Gastro-esophageal reflux disease without esophagitis; Z87.891 Personal history of nicotine dependence
CPT/HCPCS: 36415; 71045; 80048; 80053; 84484; 85025; 85027; 85610; 85730; 93005; 93458

== ENCOUNTER 2022-11-01 13:39 | Inpatient (IN) | payer BC ==
[~2022-11-01] VITALS: Ht 180.3 cm; Wt 106.0 kg
[~2022-11-01 13:39] MED LIST changes: +ATOR80TA76 PO; +ISOS30TA82 PO; +NITR0.4T42 SL
[2022-11-01] MEDS ORDERED: morphine INJ 10 MG/ML 1ML (SYR OR VIAL) IVP STA (13:49)
[2022-11-01] MEDS ORDERED: ONDANSETRON 4 MG/2 ML (SDV) Z0FRAN IVP STA (13:49)
[2022-11-01] MEDS ORDERED: NITROGLYCERIN 2% OINT 1 GM UNIT DOSE PACKET TOP STA (13:49)
[2022-11-01 13:53] LABS: BASOPHILS # (AUTO) 0.1 10^3/uL (0.0-0.1); BASOPHILS % (AUTO) 1 % (0-10); EOSINOPHILS # (AUTO) 0.4 10^3/uL (0.0-0.3); EOSINOPHILS % (AUTO) 5 % (0-10); HEMATOCRIT 45 % (40-54); HEMOGLOBIN 16.1 g/dL (13.3-17.7); LYMPHOCYTES # (AUTO) 1.9 10^3/uL (1.0-4.0); LYMPHOCYTES % (AUTO) 24 % (12-44); MEAN CORPUSCULAR HEMOGLOBIN 29 pg (25-34); MEAN CORPUSCULAR HGB CONC 36 g/dL (32-36); MEAN CORPUSCULAR VOLUME 81 fL (80-99); MEAN PLATELET VOLUME 10.2 fL (9.0-12.2); MONOCYTES # (AUTO) 0.9 10^3/uL (0.0-1.0); MONOCYTES % (AUTO) 11 % (0-12); NEUTROPHILS # (AUTO) 4.6 10^3/uL (1.8-7.8); NEUTROPHILS % (AUTO) 58 % (42-75); PLATELET COUNT 251 10^3/uL (130-400)
[2022-11-01] MEDS ORDERED: ASPIRIN 81 MG CHEW (CHILDREN'S ASA) PO ONE (14:00)
[2022-11-01 14:03] LABS: INR 0.8 (0.8-1.4); PROTHROMBIN TIME PATIENT 11.9 SEC (12.2-14.7)
--- NOTE | 2022-11-01 14:08 | ED Chest Pain ---
General Chief Complaint: Chest Pain Stated Complaint: CHEST PAIN Nursing Triage Note: Patient reports he had a cardiac stent placed by Dr. Clay last Wednesday, then had the stent adjusted on Wednesday. He reports he had chest pain at 1 am this morning, took one nitro and had some relief. He states the chest pain came back and has been intermittent all day. He states he took two nitro around noon today, but the pain has continued. He reports some nausea as well. Source: patient, old records (Cardiology notes Dr. Clay 10/24/22 and 10/26- 01/14), spouse Exam Limitations: no limitations History of Present Illness Date Seen by Provider: Nov 01, 2022 Time Seen by Provider: 13:41 Initial Comments 47-year-old male presenting with complaints of chest pressure and pain since 1 AM this morning. He states that after 1 nitroglycerin that had helped some but the pain came back. Its been constant all day and varying in intensity. He took 2 nitroglycerin around noon today but since the pain continued along with some nausea he became more scared and came to the emergency department. Upon review of his clip coater notes with Dr. Clay from recent admission at the end of September and first week of October, he had a heart cath done October 24, 2022 and had stenting of the proximal LAD. He returned on October 26 with pain and a repeat heart cath was done where he had balloon angioplasty done to the diagonal and LAD. He denies anything making the chest pain worse today. He states it has been constant and at times will be worse but has not noticed anything that exacerbated it. It has some improvement when he does the nitroglycerin but never completely goes away and continues to come back. He has had some nausea but no vomiting. He has had some sweating and shortness of breath. He denies missing any doses of medications. Timing/Duration: constant (since 1 am when it woke him up. has been waxing and waning in intensity) Severity/Quality: moderate, pressure Location: substernal Radiation: no radiation Activities at Onset: sleep Prior CP/Workup: angina, cardiac cath, heart attack (Non STEMI 10/23/2022) Modifying Factors: improves with nitroglycerin (better after Ntg but never completely went away) ASA po REGIONAL OPERATIONS MANAGER: No NTG SL REGIONAL OPERATIONS MANAGER: Yes Associated Symptoms: No abdominal pain, No back pain; diaphoresis; No dizziness, No edema, No fatigue, No fever/chills, No headache, No heartburn; nausea/vomiting (nausea but no emesis); No rash; shortness of breath; No swelling/lump in chest, No syncope, No weakness Allergies and Home Medications Allergies Coded Allergies: No Known Drug Allergies (Unverified , 05/14/19) Patient Home Medication List Home Medication List Reviewed: Yes Aspirin (Aspirin EC) 81 Mg Tablet.dr, 81 MG PO DAILY Prescribed by: CITLALLI CLAY on 10/24/221310 Atorvastatin Calcium (Atorvastatin Calcium) 80 Mg Tablet, 80 MG PO HS Prescribed by: CITLALLI CLAY on 10/27/22627 Cinnamon Bark (Cinnamon) 500 Mg Capsule, 500 MG PO DAILY, (Reported) Entered as Reported by: MALIK LEONG on 12/02/201606 Dapagliflozin Propanediol (Farxiga) 10 Mg Tablet, 10 MG PO DAILY, (Reported) Entered as Reported by: MALIK LEONG on 12/02/201606 Glyburide (Glyburide) 5 Mg Tablet, 5 MG PO DAILY, (Reported) Entered as Reported by: MALIK LEONG on 12/02/201606 Insulin Glargine/Lixisenatide (Soliqua 100 Unit-33 Mcg/ml Pen) 3 Ml Insuln.pen, 30 UNITS SC DAILY, (Reported) Entered as Reported by: MALIK LEONG on 12/02/201606 Isosorbide Mononitrate (Isosorbide Mononitrate ER) 30 Mg Tab.er.24h, 30 MG PO DAILY Prescribed by: CITLALLI CLAY on 10/27/22627 Lisinopril/Hydrochlorothiazide (Lisinopril-Hctz 20-12.5 mg Tab) 1 Each Tablet, 1 EA PO BID, (Reported) Entered as Reported by: MALIK LEONG on 12/02/201606 Metformin HCl (Metformin HCl) 1,000 Mg Tablet, 1,000 MG PO BID Prescribed by: CITLALLI CLAY on 10/24/221310 Multivitamin (Multivitamin) 1 Each Tablet, 1 EACH PO DAILY, (Reported) Entered as Reported by: MALIK LEONG on 12/02/201606 Nebivolol HCl (Bystolic) 5 Mg Tablet, 5 MG PO HS, (Reported) Entered as Reported by: MALIK LEONG on 12/02/20 160 Nitroglycerin (Nitroglycerin) 0.4 Mg Tab.subl, 0.4 MG SL NEEDED Prescribed by: CITLALLI CLAY on 10/27/22 0824 Pantoprazole Sodium (Protonix) 40 Mg Tablet.dr, 40 MG PO DAILY Prescribed by: LASHA BURNETT on 12/03/20 1112 Sucralfate (Carafate) 1 Gm Tablet, 1 GM PO ACHS Prescribed by: LASHA BURNETT on 12/03/20 1112 Ticagrelor (Brilinta) 90 Mg Tablet, 90 MG PO BID Prescribed by: CITLALLI CLAY on 10/24/22 1311 Ubidecarenone (Coq-10) 100 Mg Capsule, 100 MG PO DAILY, (Reported) Entered as Reported by: MALIK LEONG on 12/02/20 160 Zinc (Zinc) 50 Mg Tablet, 50 MG PO DAILY, (Reported) Entered as Reported by: MALIK LEONG on 12/02/20 160 Discontinued Medications Simvastatin (Simvastatin) 40 Mg Tablet, 40 MG PO HS, (Reported) Entered as Reported by: MALIK LEONG on 12/02/20 160 Review of Systems Review of Systems Constitutional: No chills, No fever EENTM: No Symptoms Reported Respiratory: See HPI Cardiovascular: See HPI Gastrointestinal: See HPI Genitourinary: No Symptoms Reported Musculoskeletal: no symptoms reported Skin: No rash Psychiatric/Neurological: Anxiety; Denies Headache Endocrine: No Symptoms Reported Past Vyozatq-Qonvlk-Chbrhb Hx Patient Social History Tobacco Use?: No Smoking Status: Former Smoker Substance use?: No Alcohol Use?: Yes Alcohol Frequency: Once in a while Pt feels they are or have been: No Seasonal Allergies Seasonal Allergies: No Past Medical History Surgery/Hospitalization HX: cardiac stent, DM, HTN Surgeries: Yes (left wrist) Tonsillectomy Respiratory: No Cardiac: Yes High Cholesterol, Hypertension Neurological: No Genitourinary: No Gastrointestinal: No Musculoskeletal: No Endocrine: Yes Diabetes, Insulin dep HEENT: No Cancer: No Psychosocial: No Integumentary: No Blood Disorders: No Family Medical History Heart Disease Physical Exam Vital Signs Vital Signs - First Documented 11/01/22 13:44 Temp 35.9 Pulse 96 Resp 17 B/P (MAP) 150/85 (106) Pulse Ox 97 O2 Delivery Room Air Capillary Refill : Less Than 3 Seconds Height, Weight, BMI Height: 5'11.00" Weight: 220lbs. 0oz. 99.710851pa; 32.00 BMI Method:Stated General Appearance: Anxious, Obese HEENT: PERRL/EOMI, Pharynx Normal Neck: Full Range of Motion, Normal Inspection, Non Tender, Supple Respiratory: Chest Non Tender, Lungs Clear, Normal Breath Sounds, No Accessory Muscle Use, No Respiratory Distress Cardiovascular: Regular Rate, Rhythm, No Murmur, Normal Peripheral Pulses Gastrointestinal: Normal Bowel Sounds, No Pulsatile Mass, Non Tender, Soft Rectal: Deferred Extremity: Normal Capillary Refill, Normal Inspection, No Pedal Edema Neurologic/Psychiatric: Alert, Oriented x3, director of strategic initiatives II-XII Norm as Tested Skin: Normal Color, Diaphoresis Images 1 - complains of pain and pressure to left side of chest Critical Care Note Critical Care Total Time (minutes) 45 minutes Progress 45 minutes of critical care time was spent with the patient. Time excludes separately billable procedures. Time was spent obtaining history from patient, spouse, review of cardiology notes and recent admission and heart cath x2, ordering tests and reviewing results, ordering interventions and reviewing response, discussion with consultants, documentation in the chart. Patient was at risk of cardiovascular compromise with his recent heart stent and angioplasty as well as continued diabetes, high blood pressure, obesity. He required continuous monitoring and management to try and control his pain and symptoms as well as discussing treatment options with clip coater and admitting primary car e provider. Progress/Results/Core Measures Results/Orders Lab Results Laboratory Tests Test 11/01/22 13:48 11/01/22 13:55 Range/Units White Blood Count 8.0 4.3-11.0 10^3/uL Red Blood Count 5.52 4.30-5.52 10^6/uL Hemoglobin 16.1 # 13.3-17.7 g/dL Hematocrit 45 40-54 % Mean Corpuscular Volume 81 80-99 fL Mean Corpuscular Hemoglobin 29 25-34 pg Mean Corpuscular Hemoglobin Concent 36 32-36 g/dL Red Cell Distribution Width 13.0 10.0-14.5 % Platelet Count 251 130-400 10^3/uL Mean Platelet Volume 10.2 9.0-12.2 fL Immature Granulocyte % (Auto) 0 % Neutrophils (%) (Auto) 58 42-75 % Lymphocytes (%) (Auto) 24 12-44 % Monocytes (%) (Auto) 11 0-12 % Eosinophils (%) (Auto) 5 0-10 % Basophils (%) (Auto) 1 0-10 % Neutrophils # (Auto) 4.6 1.8-7.8 10^3/uL Lymphocytes # (Auto) 1.9 1.0-4.0 10^3/uL Monocytes # (Auto) 0.9 0.0-1.0 10^3/uL Eosinophils # (Auto) 0.4 H 0.0-0.3 10^3/uL Basophils # (Auto) 0.1 0.0-0.1 10^3/uL Immature Granulocyte # (Auto) 0.0 0.0-0.1 10^3/uL Prothrombin Time 11.9 L 12.2-14.7 SEC INR Comment 0.8 0.8-1.4 Activated Partial Thromboplast Time 27 24-35 SEC Sodium Level 139 135-145 MMOL/L Potassium Level 4.3 3.6-5.0 MMOL/L Chloride Level 103 98-107 MMOL/L Carbon Dioxide Level 22 21-32 MMOL/L Anion Gap 14 5-14 MMOL/L Blood Urea Nitrogen 32 H 7-18 MG/DL Creatinine 1.02 0.60-1.30 MG/DL Estimat Glomerular Filtration Rate 92 BUN/Creatinine Ratio 31 Glucose Level 122 H 70-105 MG/DL Calcium Level 10.0 8.5-10.1 MG/DL Corrected Calcium 8.5-10.1 MG/DL Magnesium Level 2.2 1.6-2.4 MG/DL Total Bilirubin 0.5 0.1-1.0 MG/DL Aspartate Amino Transf (AST/SGOT) 21 5-34 U/L Alanine Aminotransferase (ALT/SGPT) 37 0-55 U/L Alkaline Phosphatase 101 40-136 U/L Myoglobin 53.3 <72.0 NG/ML Troponin I < 0.30 <0.30 NG/ML Pro-B-Type Natriuretic Peptide 8.0 <125.0 PG/ML Total Protein 7.4 6.4-8.2 GM/DL Albumin 4.7 H 3.2-4.5 GM/DL Lipase 56 8-78 U/L Glucometer 98 70-110 MG/DL My Orders Orders - PETER SALGADO MD Cbc With Automated Diff (11/01/22 13:48) Magnesium (11/01/22 13:48) Chest 1 View Ap/Pa Only (11/01/22 13:48) Ekg Tracing (11/01/22 13:48) Comprehensive Metabolic Panel (11/01/22 13:48) Myoglobin Serum (11/01/22 13:48) Protime With Inr (11/01/22 13:48) Partial Thromboplastin Time (11/01/22 13:48) O2 (11/01/22 13:48) Monitor-Rhythm Ecg Trace Only (11/01/22 13:48) Aspirin Chewable Tablet (Baby Aspirin Ch (11/01/22 14:00) Ed Iv/Invasive Line Start (11/01/22 13:48) Lipase (11/01/22 13:48) Troponin I Fs (11/01/22 13:48) Probnp Fs (11/01/22 13:48) Accucheck Stat ONCE (11/01/22 13:48) Morphine Injection (Morphine Injection (11/01/22 13:49) Nitroglycerin Ointment (Nitrobid Ointme (11/01/22 13:49) Ondansetron Injection (Zofran Injectio (11/01/22 13:49) Lidocaine 2% Viscous 15 Ml (Xylocaine Vi (11/01/22 14:45) Antacid Suspension (Mylanta Suspension (11/01/22 14:45) Pantoprazole Injection (Protonix Injecti (11/01/22 14:33) Enoxaparin Injection (Lovenox Injection) (11/01/22 14:53) Medications Given in ED Current Medications Medications Dose Ordered Sig/Zana Route Start Time Stop Time Status Last Admin Dose Admin Al Hydrox/Mg Hydrox/Simethicone 30 ml ONCE ONCE PO 11/01/22 14:45 11/01/22 14:46 DC 11/01/22 14:45 30 ML Aspirin 324 mg ONCE ONCE PO 11/01/22 14:00 11/01/22 14:01 DC 11/01/22 13:55 324 MG Lidocaine HCl 15 ml ONCE ONCE PO 11/01/22 14:45 1/8/23 14:46 DC 11/01/22 14:46 15 ML Vital Signs/I&O 11/01/22 13:44 Temp 35.9 Pulse 96 Resp 17 B/P (MAP) 150/85 (106) Pulse Ox 97 O2 Delivery Room Air Blood Pressure Mean: 106 FSBG Bedside Testing Finger Stick Blood Glucose: 98 Progress Progress Note #1: Progress Note Obtain electrocardiogram as patient was complaining of chest pain and has had cardiac stent on October 24 as well as balloon angioplasty on October 26. He has additional risk factors of family history of cardiac disease before age 50, diabetes, high blood pressure, obesity, previous smoker. Order labs including CBC, Chemistry, cardiac enzymes. Chest xray to evaluate for effusion, heart failure, infiltrate. Place on cardiac director of security to watch his heart rate and rhythm as well as monitor vital signs. My initial interpretation of his cardiac director of security shows sinus rhythm with rate 90s without ectopy. My personal interpretation and review of his electrocardiogram shows sinus rhythm with a heart rate in the 90s without ST elevation but has upsloping and V2 through V5. Overall appears similar to prior tracings from October 26 to October 27. Since he is at risk of life threatening conditions such as re-occlusion of c ardiac stent, new occlusion of coronary artery, STEMI, pneumonia he is being evaluated with ECG, labs, chest xray. For his chest pain will place nitroglycerin paste 1 inch, Morphine 2 mg IV for chest pain, Zofran 4 mg IV for nausea. Anticipate re-admit to [facility] since he has recurrent pain and recent cath x 2 with stenting of LAD then balloon angioplasty of diagonal and LAD. Progress Note #2: Time: 14:08 Progress Note Based on my personal review and interpretation of his 1 view chest x-ray he has no acute effusion or infiltrate. Overall appears similar to x-ray from October 23 and October 26. Progress Note #3: Time: 14:26 Progress Note CBC stable without acute significant abnormality compared to recent testing. Chemistry also stable without elevation of troponin. Troponin is <0.3. Coags are stable without evidence for coagulopathy. I reviewed his radiologist report of the CXR showing no acute process. I checked on the patient after the medications of aspirin, morphine and nitroglycerin paste. He has improved blood pressure to 117/69. He continues to be in a sinus rhythm on the cardiac telemetry monitoring with a heart rate in the 90s. Oxygen saturation is 96% on room air. He is breathing about 16 times a minute. His pressure in his chest is slightly improved with treatment but has not resolved. He states it feels like pressure builds up and like there is a ball in his chest on the left side and across from the bottom of his chest all the way up his left side of the chest. He appears anxious still. I advised him that so far his electrocardiogram and blood test appear stable but with his continued pain as I told him when I was first in the room but still would like to get him to the hospital and hopefully [facility] has beds available since he has had Heart cath x 2 in last 10 days. I had reviewed the cardiology records and notes from his clip coater, Dr. Clay. I advised him that I will call Dr. Olvera, the pre certification specialist clip coater, and discuss the case with him and see if he has additional recommendations. 1430 d/w Buckle And Button Maker Dr. Olvera and reviewed the ECG, labs, recent heart cath x 2 and his current presentation and minimal response to treatment to resolve his pain in the ED. He asked about anti-anginal medications that could possibly be started or adjusted. I advised him that Dr. Clay had started Imdur 30 mg last week after the second heart cath. Dr. Olvera suggested adding a GI cocktail and trying to treat GERD type symptoms. Otherwise he could continue to get morphine to try and help with pain. And since his pain is not going away he would need admitted for further monitoring and evaluation. 1435 D/w Dr. Johnson, pre certification specialist doctor for [facility], about admit and briefly reviewed the labs and findings today along with his recent admit x 2 with heart cath x 2. With Dr. Olvera suggesting admit since his pain is not resolving will admit to ICU. Can continue Morphine for pain and see if treating his GERD helps as well. Will recheck his troponin in 3 hours at 1700. He was agreeable with admit and requested I place bridge orders and include anything Dr. Olvera wanted for orders. Discussed with nursing service delivery supervisor and she assigned him an ICU bed. Will give a dose of Lovenox 1 mg/kg prior to transfer and continue that on admit. Chest pain order set completed as well. 1500 after the GI cocktail pt was more anxious as he felt like he could not swallow from the viscous lidocaine but rates his pressure in chest at 4 out of 10 so no significant change. EMS here to transport pt to [facility]. Initial ECG Impression Date: Nov 01, 2022 Initial ECG Impression Time: 13:42 Initial ECG Rate: 96 Initial ECG Rhythm: Normal Sinus Initial ECG Comparisson: Unchanged (similar to 10/26 and 10/27) Comment On my personal review and interpretation his electrocardiogram shows a sinus rhythm with heart rate 96 bpm. FL interval [address] segments in V2 through V5. QT interval 325 ms with a QTc interval 378 ms. Overall appears similar to tracings from October 23, 2022 as well as October 26 and October 27, 2022. Diagnostic Imaging Diagonstic Imaging: Xray Plain Films/CT/US/NM/MRI: chest Comments [facility]. [place], [place] NAME: [facility] REC#: [id number] PT STATUS: REG ER : 1975 PHYSICIAN: PETER SALGADO MD ADMIT DATE: 11/01/22/ER FS Signed Date of Exam:11/01/22 CHEST 1 VIEW AP/PA ONLY INDICATION: Chest pressure. FINDINGS: The lungs are clear. No failure, effusion, or pneumothorax. IMPRESSION: No acute appearing abnormality. Dictated by: Dictated on workstation # [id number] Dict: 11/01/22 1418 Trans: 11/01/22 1434 [id number] Interpreted by: MIGNON GARRISON Electronically signed by: MIGNON GARRISON 11/01/22 1434 Reviewed: Reviewed by Me Departure Communication (Admissions) Time/Spoke to Admitting Phy: 14:35 1430 d/w Buckle And Button Maker Dr. Olvera and reviewed the ECG, labs, recent heart cath x 2 and his current presentation and minimal response to treatment to resolve his pain in the ED. He asked about anti-anginal medications that could possibly be started or adjusted. I advised him that Dr. Clay had started Imdur 30 mg last week after the second heart cath. Dr. Olvera suggested adding a GI cocktail and trying to treat GERD type symptoms. Otherwise he could continue to get morphine to try and help with pain. And since his pain is not going away he would need admitted for further monitoring and evaluation. 1435 D/w Dr. Johnson, pre certification specialist doctor for [facility], about admit and briefly reviewed the labs and findings today along with his recent admit x 2 with heart cath x 2. With Dr. Olvera suggesting admit since his pain is not resolving will admit to ICU. Can continue Morphine for pain and see if treating his GERD helps as well. Will recheck his troponin in 3 hours at 1700. He was agreeable with admit and requested I place bridge orders and include anything Dr. Olvera wanted for orders. Time/Spoke to Consulting Phy: 14:30 1430 d/w Buckle And Button Maker Dr. Olvera and reviewed the ECG, labs, recent heart cath x 2 and his current presentation and minimal response to treatment to resolve his pain in the ED. He asked about anti-anginal medications that could possibly be started or adjusted. I advised him that Dr. Clay had started Imdur 30 mg last week after the second heart cath. Dr. Olvera suggested adding a GI cocktail and trying to treat GERD type symptoms. Otherwise he could continue to get morphine to try and help with pain. And since his pain is not going away he would need admitted for further monitoring and evaluation. 1435 D/w Dr. Johnson, pre certification specialist doctor for [facility], about admit and briefly reviewed the labs and findings today along with his recent admit x 2 with heart cath x 2. With Dr. Olvera suggesting admit since his pain is not resolving will admit to ICU. Can continue Morphine for pain and see if treating his GERD helps as well. Will recheck his troponin in 3 hours at 1700. He was agreeable with admit and requested I place bridge orders and include anything Dr. Olvera wanted for orders. Impression Primary Impression: Coronary artery disease with unstable angina pectoris Qualified Codes: I25.110 - Atherosclerotic heart disease of false pass coronary artery with unstable angina pectoris Disposition: 30 STILL A PATIENT Condition: Critical Admissions Decision to Admit Reason: Admit from ER (General) Decision to Admit/Date: Nov 01, 2022 Time/Decision to Admit Time: 14:35 Departure-Patient Inst. Referrals: CATINA CHEW MD (PCP/Family) Primary Care Physician PETER SALGADO MD Nov 01, 2022 14:08
[2022-11-01 14:15] LABS: SODIUM 139 MMOL/L (135-145)
[2022-11-01 14:16] LABS: ALANINE AMINOTRANSFERASE 37 U/L (0-55); ALBUMIN 4.7 GM/DL (3.2-4.5); ALKALINE PHOSPHATASE 101 U/L (40-136); BILIRUBIN,TOTAL 0.5 MG/DL (0.1-1.0); BUN/CREATININE RATIO 31; CARBON DIOXIDE 22 MMOL/L (21-32); CHLORIDE 103 MMOL/L (98-107); CREATININE SERUM 1.02 MG/DL (0.60-1.30); GFR ESTIMATED 92; GLUCOSE 122 MG/DL (70-105); LIPASE 56 U/L (8-78); MAGNESIUM 2.2 MG/DL (1.6-2.4); POTASSIUM 4.3 MMOL/L (3.6-5.0); TOTAL PROTEIN 7.4 GM/DL (6.4-8.2)
--- NOTE | 2022-11-01 14:22 | Diagnostic Imaging Report ---
INDICATION: Chest pressure. FINDINGS: The lungs are clear. No failure, effusion, or pneumothorax. IMPRESSION: No acute appearing abnormality. Dictated by: Dictated on workstation # [id number]
[2022-11-01] MEDS ORDERED: PANTOPRAZOLE 40 MG (PROTONIX) VIAL IV STA (14:33)
[2022-11-01] MEDS ORDERED: LIDOCAINE 2% VISCOUS 15 ML UDC PO ONE (14:45)
[2022-11-01] MEDS ORDERED: ANTACID SUSP 30 ML UDC (MYLANTA) PO ONE (14:45)
[2022-11-01] MEDS ORDERED: ENOXAPARIN 100 MG/1 ML (LOVENOX) SYR SC STA (14:53)
[2022-11-01 15:13] VITALS: BP 104/62
[2022-11-01] MEDS ORDERED: ONDANSETRON 4 MG/2 ML (SDV) Z0FRAN IV PRN (16:15)
[2022-11-01] MEDS ORDERED: INSU100I14 SQ (16:21)
[2022-11-01] MEDS ORDERED: NEBI10TA11 PO (16:21)
[2022-11-01] MEDS: NS IV 1000 ML 1,000 ML IV SCH (16:54)
--- NOTE | 2022-11-01 17:36 | Tele-ICU Progress Note ---
Subjective Date Seen by a Provider: Nov 01, 2022 Time Seen by a Provider: 17:35 Subjective/Events-last exam (Tele-ICU Physician , consultation) Available chart/ vitals / labs / Images reviewed H&P is from ER notes Patient's information available about PMH, allergy reviewed in EMR. ROS as per chart and RN report Video assessment done using teleICU camera, rest of exam as per RN Discussed with RN. He is a 47-year-old male with past medical history of coronary artery disease status post LAD PCI on 10/24/2022 and subsequently had a coronary angioplasty on 10/26/2022. He is on dual antiplatelet therapy today he presented to the emergency room with on and off chest pain. He took nitroglycerin 3 tablets to sujata today which improved his chest pain to some extent and recurred. Hence he came to the emergency room. ER physician apparently reviewed with fruit cutter who suggested admission to the ICU. No telemetry ICU consult is placed about I have reviewed the case for telemetry ICU protocol. Discussed with the FIELD SALES SPECIALIST. His troponin is normal so far and EKG is similar to that of previous admission. Impression 1. Recurrent chest pain etiology not clear cardiac versus noncardiac. 2. Moderate obesity 3. Type 2 diabetes mellitus Recommendations 1. Continue trending troponin 2. Repeat EKG 3. Management of his chest pain per cardiology. 4. If cardiac work-up is a negative suggest upper endoscopy. Sepsis Event Evaluation Height, Weight, BMI Height: 5'11.00" Weight: 220lbs. 0oz. 99.039066zb; 32.08 BMI Method:Stated Exam Exam Patient acknowledged, consented, and participated in this virtual visit which was conducted using real time audio/video Vital Signs Date Time Temp Pulse Resp B/P (MAP) Pulse Ox O2 Delivery O2 Flow Rate FiO2 11/01/22 17:00 83 13 105/68 (80) 97 Room Air 11/01/22 16:18 83 11/01/22 16:04 36.1 11/01/22 16:00 87 8 109/72 (84) 97 Room Air 11/01/22 15:13 90 15 104/62 94 Room Air 11/01/22 13:44 35.9 96 17 150/85 (106) 97 Room Air Height & Weight Height: 5'11.00" Weight: 220lbs. 0oz. 99.373635ep; 32.08 BMI Method:Stated General Appearance: Anxious, Obese HEENT: PERRL/EOMI, Pharynx Normal Neck: Full Range of Motion, Normal Inspection, Non Tender, Supple Respiratory: Chest Non Tender, Lungs Clear, Normal Breath Sounds, No Accessory Muscle Use, No Respiratory Distress Cardiovascular: Regular Rate, Rhythm, No Murmur, Normal Peripheral Pulses Capillary Refill: Less Than 3 Seconds Extremity: Normal Capillary Refill, Normal Inspection, No Pedal Edema Neurologic/Psychiatric: Alert, Oriented x3, insole channeler II-XII Norm as Tested Skin: Normal Color, Diaphoresis Results Lab Laboratory Tests 11/01/22 13:48 Assessment/Plan Assessment/Plan as above Critical Care: Critically Ill Patient Time spent with patient (mins): 15 ZAY BATISTA MD Nov 01, 2022 17:36
[2022-11-01] MEDS ORDERED: NITROGLYCERIN 2% OINT 1 GM UNIT DOSE PACKET TOP SCH (18:00)
[2022-11-01] MEDS: NITROGLYCERIN 2% OINT 1 GM UNIT DOSE PACKET TOP SCH ×2 (18:19→23:39)
[2022-11-02] MEDS: NS IV 1000 ML 1,000 ML IV SCH ×3 (02:06→15:25)
[2022-11-02] MEDS: NITROGLYCERIN 2% OINT 1 GM UNIT DOSE PACKET TOP SCH ×3 (05:47→18:00)
[2022-11-02] MEDS ORDERED: ENOXAPARIN 100 MG/1 ML (LOVENOX) SYR SC SCH (06:00)
[2022-11-02] MEDS: ASPIRIN E.C. 81 MG (ECOTRIN) TAB PO SCH (09:19)
[2022-11-02] MEDS ORDERED: LIDOCAINE 1% INJ 30 ML (XYLOCAINE) VIAL ONE (09:25)
[2022-11-02] MEDS ORDERED: NS IV 1000 ML 1,000 ML ONE (09:25)
[2022-11-02] MEDS ORDERED: HEParin (CATH LAB) 2,000 ML IV ONE (09:25)
[2022-11-02] MEDS ORDERED: HEParin 1000 UNIT/ML (10ML VIAL) FOR BOLUS ONE (09:29)
[2022-11-02] MEDS ORDERED: MIDAZOLAM 5 MG/5 ML (VERSED) VIAL ONE (09:29)
[2022-11-02] MEDS ORDERED: fentaNYL INJ 100 MCG/2 ML AMP ONE ×2 (09:29→10:05)
--- NOTE | 2022-11-02 09:44 | Consultation-Cardiology ---
HPI-Cardiology Cardiology Consultation Date of Consultation 11/02/22 Date of Admission Time Seen by Provider: 09:37 Indication: Chest pain HPI 47-year-old gentleman with history of coronary artery disease, recent myocardial infarction, underwent stenting to the LAD on October 24, 2022, returned with chest pain, had balloon angioplasty for an ostial diagonal artery. Patient was feeling better but continued to have recurrent episode of chest pain. Reported severe chest pain yesterday dull in nature associated with shortness of breath, continue to wax and wane. Came into the emergency room and reported improvement of his chest pain with nitroglycerin. He is still having some active residual chest pain 1-2 in intensity, maintained on nitroglycerin patch. Home Medications & Allergies Allergies: Coded Allergies: No Known Drug Allergies (Unverified , 05/14/19) Home Medication List Reviewed: Yes [id number] Hx Patient Social History Marital Status: Employed/Student: employed Smoking Status: Former Smoker 2nd Hand Smoke Exposure: No Recent Hopitalizations: No Have you traveled recently?: No Alcohol Use?: Yes Immunizations Up To Date Date of Influenza Vaccine: Jul 25, 2022 Past Medical History Discussed below Family Medical History Significant Family History: Heart Disease Review of Systems-General Review of Systems Constitutional: No chills, No fever EENTM: see HPI, no symptoms reported Respiratory: see HPI, short of breath Cardiovascular: see HPI, chest pain; No edema, No Hx of Intervention, No palpitations, No syncope, No vascular heart diseas, No other Gastrointestinal: no symptoms reported, see HPI Genitourinary: no symptoms reported, see HPI Musculoskeletal: no symptoms reported Skin: No rash Psychiatric/Neurological: Anxiety; Denies Headache Reviewed Test Results Reviewed Test Results Lab Laboratory Tests Test 11/01/22 13:48 11/01/22 13:55 11/01/22 16:41 11/01/22 17:30 Range/Units White Blood Count 8.0 4.3-11.0 10^3/uL Red Blood Count 5.52 4.30-5.52 10^6/uL Hemoglobin 16.1 # 13.3-17.7 g/dL Hematocrit 45 40-54 % Mean Corpuscular Volume 81 80-99 fL Mean Corpuscular Hemoglobin 29 25-34 pg Mean Corpuscular Hemoglobin Concent 36 32-36 g/dL Red Cell Distribution Width 13.0 10.0-14.5 % Platelet Count 251 130-400 10^3/uL Mean Platelet Volume 10.2 9.0-12.2 fL Immature Granulocyte % (Auto) 0 % Neutrophils (%) (Auto) 58 42-75 % Lymphocytes (%) (Auto) 24 12-44 % Monocytes (%) (Auto) 11 0-12 % Eosinophils (%) (Auto) 5 0-10 % Basophils (%) (Auto) 1 0-10 % Neutrophils # (Auto) 4.6 1.8-7.8 10^3/uL Lymphocytes # (Auto) 1.9 1.0-4.0 10^3/uL Monocytes # (Auto) 0.9 0.0-1.0 10^3/uL Eosinophils # (Auto) 0.4 H 0.0-0.3 10^3/uL Basophils # (Auto) 0.1 0.0-0.1 10^3/uL Immature Granulocyte # (Auto) 0.0 0.0-0.1 10^3/uL Prothrombin Time 11.9 L 12.2-14.7 SEC INR Comment 0.8 0.8-1.4 Activated Partial Thromboplast Time 27 24-35 SEC Sodium Level 139 135-145 MMOL/L Potassium Level 4.3 3.6-5.0 MMOL/L Chloride Level 103 98-107 MMOL/L Carbon Dioxide Level 22 21-32 MMOL/L Anion Gap 14 5-14 MMOL/L Blood Urea Nitrogen 32 H 7-18 MG/DL Creatinine 1.02 0.60-1.30 MG/DL Estimat Glomerular Filtration Rate 92 BUN/Creatinine Ratio 31 Glucose Level 122 H 70-105 MG/DL Calcium Level 10.0 8.5-10.1 MG/DL Corrected Calcium 8.5-10.1 MG/DL Magnesium Level 2.2 1.6-2.4 MG/DL Total Bilirubin 0.5 0.1-1.0 MG/DL Aspartate Amino Transf (AST/SGOT) 21 5-34 U/L Alanine Aminotransferase (ALT/SGPT) 37 0-55 U/L Alkaline Phosphatase 101 40-136 U/L Myoglobin 53.3 <72.0 NG/ML Troponin I < 0.30 < 0.028 <0.028 NG/ML Pro-B-Type Natriuretic Peptide 8.0 <125.0 PG/ML Total Protein 7.4 6.4-8.2 GM/DL Albumin 4.7 H 3.2-4.5 GM/DL Lipase 56 8-78 U/L Glucometer 98 138 H 70-110 MG/DL Physical Exam Physical Exam Vital Signs Vital Signs - First Documented 11/01/22 13:44 Temp 35.9 Pulse 96 Resp 17 B/P (MAP) 150/85 (106) Pulse Ox 97 O2 Delivery Room Air Capillary Refill : Less Than 3 Seconds Height, Weight, BMI Height: 5'11.00" Weight: 220lbs. 0oz. 99.178225ir; 32.08 BMI Method:Stated General Appearance: Anxious, Obese HEENT: PERRL/EOMI, Pharynx Normal Neck: Full Range of Motion, Normal Inspection, Non Tender, Supple Respiratory: Chest Non Tender, Lungs Clear, Normal Breath Sounds, No Accessory Muscle Use, No Respiratory Distress Cardiovascular: Regular Rate, Rhythm, No Murmur, Normal Peripheral Pulses Gastrointestinal: Normal Bowel Sounds, No Pulsatile Mass, Non Tender, Soft Rectal: Deferred Extremity: Normal Capillary Refill, Normal Inspection, No Pedal Edema Neurologic/Psychiatric: Alert, Oriented x3, human resources talent manager II-XII Norm as Tested Skin: Normal Color, Diaphoresis A/P-Cardiology Admission Diagnosis Unstable angina Coronary artery disease Hypertension Hyperlipidemia Assessment/Plan Chest pain, unstable angina, still having recurrent episodes of chest pain, responsive to nitroglycerin, still having active chest pain. I will proceed with repeating cardiac catheterization possible PTCA Coronary artery disease, cardiac catheterization carried out on October 24, 2022 with 95% stenosis in the proximal LAD successful stenting using idana point 3.5 x 18 mm with excellent results. The stent was postdilated to 4.0 mm. Cardiac catheterization was done on October 27, 2022 with balloon angioplasty to the diagonal artery through the stent in the LAD then I did balloon angioplasty with 2.5 x 20 trek balloon. Patient was maintained on aspirin and Brilinta Planning to repeat cardiac catheterization Hypertension, restart home medication and monitor blood pressure Hyperlipidemia, lipid profile was done on October 24, 2022 with total cholesterol 109, triglyceride 290, LDL 41. Continue Lipitor 80 mg daily Diabetes mellitus, followed and managed by primary care team Educated on avoiding metformin for the next 48 hours Gastroesophageal reflux disease Ex tobaccoism, stopped smoking recently. Educated on smoking cessation Family history of heart disease. BMI 35, educated on weight loss Clinical Quality Measures AMI/AHF: ASA po Prior to arrival: CITLALLI Posey MD Nov 02, 2022 09:44
--- NOTE | 2022-11-02 09:48 | Cardiac Procedure Note-CS/ASA ---
Pre-Procedure Note Pre-Op Procedure Note Date of Available H&P: Nov 02, 2022 Date H&P Reviewed: Nov 02, 2022 Time H&P Reviewed: 09:48 History & Physical: H&P Reviewed, Patient Examed, No changes noted Pre-Operative Diagnosis: CP Conscious Sedation Pre-Proced Time 09:48 ASA Score 3 For ASA 3 and 4: Consider anesthesia and medical clearance. Also, for patients with a history of failed moderate sedation consider anesthesia. Airway Lungs Heart ASA score ASA 1: a normal healthy patient ASA 2: a patient with a mild systemic disease (mid diabetes, controlled hypertension, obesity ASA 3: a patient with a severe systemic disease that limits activity (angina, COPD, prior Myocardial infarction) ASA 4: a patient with an incapacitating disease that is a constant threat to life (CHF, renal failure) ASA 5: a moribund patient not expected to survive 24 hrs. (ruptured aneurysm) ASA 6: a declared brain- patient whose organs are being harvested. For emergent operations, add the letter E after the classification Mallampati Classification Grade 3 Sedation Plan Analgesia, Amnesia, Plan communicated to team members, Discussed options with patient/fam, Discussed risks with patient/fam The patient is an appropriate candidate to undergo the planned procedure, sedation, and anesthesia. The patient immediately re-assessed prior to indication. CITLALLI MARTIN MD Nov 02, 2022 09:48
[2022-11-02] MEDS ORDERED: meTOprolol 5 MG/5 ML (LOPRESSOR) VIAL ONE (10:00)
[2022-11-02] MEDS ORDERED: MIDAZOLAM 2 MG/2 ML (VERSED) VIAL ONE (10:05)
[2022-11-02] MEDS ORDERED: NITRO DRIP 25000 MCG/D5W 0 ML IV ONE (10:14)
[2022-11-02] MEDS ORDERED: PATIENT MAY USE OWN MEDS, ALL PO SCH (10:30)
--- NOTE | 2022-11-02 10:36 | Cardiac Cath Report ---
Cardiac Cath Report Physician (s)/Sewer Hand (s) Physician CITLALLI MARTIN MD Pre-Procedure Diagnosis Pre-Procedure Diagnosis: CP Post-Procedure Note Procedure Start Date: Nov 02, 2022 Name of Procedure: Left heart catheterization Left ventriculogram Stenting to the diagonal artery Findings/Procedure Note PROCEDURE NOTE: 47 years old gentleman had multiple admission with recurrent chest pain and underwent stenting to the LAD on October 24, 2022 then balloon angioplasty to the diagonal artery on October 26, 2022, admitted back with acute chest pain. Continue to have recurrent chest pain and I decided to proceed with cardiac catheterization possible PTCA. After explaining the procedure to the patient, all pros and cons were explained, all questions were answered. The patient signed the consent and then he was placed in the cardiac catheterization laboratory. Groin was prepped in SL fashion local anesthesia was used. Sheath placed in the right femoral artery, combination of right and left Vijaya catheter were used to access the right and left coronary system, angiogram was done, Vijaya right prolapsed to the left ventricular cavity and I proceeded with left ventriculogram. Patient has recoiling in the ostial diagonal artery where his recurrent 95% stenosis and haziness. I proceeded with a EBU 3.5 guide, placed whisper extra-support wire in the diagonal artery then I advanced 2.5 x 12 mm balloon and did 2 inflations. Repeat angiogram showed improvement but continued to have haziness at the ostial/proximal diagonal. I decided to stent that artery. I used diana point stent 2.5 x 8 mm placed carefully at the ostium. After the inflation it appeared that the stent slid back slightly in the LAD. I advanced a second wire BMW wire in the LAD and use noncompliant trek 4 x 20 and did 2 inflation, excellent results. 0% residual stenosis in both arteries At the end of the procedure the sheath was rem bisi. Closure device was deployed FINDINGS: Hemodynamics LV 187/23, end-diastolic pressure of 23 Aorta 192/99 mean of 136 ANATOMY: Left Main is free of obstructive disease Left Anterior Descending has a patent stent in the proximal LAD known to be 3.5 x 23 mm expanded to 4 mm with no other obstructive disease. Diagonal artery has 95% ostial stenosis, successful balloon angioplasty then deployment of a stent in the diagonal artery using diana point 2.5 x 8 mm, the stent slid back slightly in the LAD and had improved after balloon against the wall in the LAD. 0% residual stenosis in both arteries Left Circumflex is moderate in size with no obstructive disease Right Coronary Artery is dominant moderate in size with no obstructive disease LV Gram was done due to the recurrent chest pain and elevated left ventricular end-diastolic pressure, normal left ventricular systolic function with ejection fraction 60% PERCUTANEOUS INTERVENTION: Pre stenosis 95 Post Stenosis 0 Pre JENNIE flow 2 Post JENNIE flow 3 Dominance right coronary artery CONCLUSION: 1. 95 ostial diagonal artery stenosis, recoiled after balloon angioplasty done in on October 26. I proceeded with stenting using diana point stent 2.5 x 8 mm, excellent results, the stents extended slightly in the LAD I proceeded with balloon angioplasty within the old stent of the LAD crushing the new stent against the wall using noncompliant balloon 4 x 20 mm with excellent results 2. Otherwise no significant obstructive disease 3. Normal left ventricular size, normal contractility, ejection fraction 60% DISCUSSION AND RECOMMENDATION: I have switched patient to aspirin and Effient. We will monitor tolerance and response Anesthesia Type: Conscious Sedation Estimated blood loss (mL): 15 ml Contrast Amount: 75 ml Total Radiation Dose: 1032 mGy Post-Procedure Diagnosis Post-operative diagnosis: Chest pain Coronary artery disease Hypertension Hyperlipidemia. CITLALLI MARTIN MD Nov 02, 2022 10:36
[2022-11-02] MEDS ORDERED: NITROGLYCERIN 0.4 MG SL TABS BTL 25'S SL SCH (10:45)
[2022-11-02] MEDS ORDERED: PRASUGREL 10 MG (EFFIENT) TABLET PO ONE (10:45)
[2022-11-02] MEDS ORDERED: ASPIRIN 325 MG (5 GR) TABLET ONE (10:53)
--- NOTE | 2022-11-02 11:10 | Tele-ICU Progress Note ---
Subjective Date Seen by a Provider: Nov 02, 2022 Time Seen by a Provider: 11:10 Subjective/Events-last exam (Tele-ICU Physician , consultation as per request of PCP Service provided via interactive audio and video telecommunications E-CARE system to a patient admitted to ICU bed in [facility]. Available chart/ vitals / labs / Images reviewed H&P is from ER notes Patient's information available about PMH, Shx, Fhx allergy reviewed inEMR. ROS as per chart and RN report Now in ICU, hemodynamically stable Video assessment done using teleICU camera, rest of exam as per RN Discussed with RN. Consultants: Hospital course: A/P Impression 1. Recurrent chest pain etiology not clear cardiac versus noncardiac. 2. Moderate obesity 3. Type 2 diabetes mellitus Recommendations Management of his chest pain per cardiology. No reported JOSE observed by RN at night - ? need official study BS coontrolled If cardiac work-up is a negative suggest upper endoscopy. Lines : , (Central Line Necessity Reviewed) Sosa: OG: Nutrition: Analgesia: Anxiety/ delirium VTE Prophylaxis:ambulate Stress Ulcer Prophylaxis: na Plans in collaboration with bedside consultants and IM MDs. Discussed with RN to reach out if any questions or concerns A total of 5 minutes of critical care time was devoted to this patient today, required to treat and/or prevent further deterioration of critical care condition ( as above ) . I am remotely monitoring this patient from another state. I am unable to do the bedside exam, and history/physical and pertinent information is taken from other notes in the computer and bedside staff. . Sepsis Event Evaluation Height, Weight, BMI Height: 5'11.00" Weight: 220lbs. 0oz. 99.799187mi; 32.08 BMI Method:Stated Exam Exam Patient acknowledged, consented, and participated in this virtual visit which was conducted using real time audio/video Vital Signs Date Time Temp Pulse Resp B/P (MAP) Pulse Ox O2 Delivery O2 Flow Rate FiO2 11/02/22 09:00 70 14 116/72 (87) 93 Room Air 11/02/22 08:00 80 19 130/82 (98) 93 Room Air 11/02/22 08:00 36.6 11/02/22 07:00 70 15 138/79 (98) 94 Room Air 11/02/22 07:00 70 11/02/22 06:00 71 8 141/78 (99) 97 Room Air 11/02/22 05:00 71 125/83 (97) 96 Room Air 11/02/22 04:00 36.2 72 13 129/71 (90) 93 Room Air 11/02/22 04:00 94 Room Air 11/02/22 03:00 71 14 114/70 (85) 93 Room Air 11/02/22 02:00 70 13 109/68 (82) 95 Room Air 11/02/22 01:00 77 13 113/74 (87) 92 Room Air 11/02/22 01:00 77 11/02/22 00:00 96 Room Air 11/02/22 00:00 36.2 71 113/65 (81) 93 Room Air 11/01/22 23:00 78 125/73 (90) 96 Room Air 11/01/22 22:00 78 105/73 (84) 93 Room Air 11/01/22 21:00 73 22 106/64 (78) 95 Room Air 11/01/22 20:37 36.2 81 12 131/52 (78) 98 Room Air 11/01/22 20:00 36.0 11/01/22 20:00 98 Room Air 11/01/22 19:00 80 110/63 (79) 98 Room Air 11/01/22 19:00 80 11/01/22 18:00 81 106/70 (82) 97 Room Air 11/01/22 17:00 83 13 105/68 (80) 97 Room Air 11/01/22 16:18 83 11/01/22 16:10 98 Room Air 11/01/22 16:04 36.1 11/01/22 16:00 87 8 109/72 (84) 97 Room Air 11/01/22 16:00 98 Room Air 11/01/22 15:13 90 15 104/62 94 Room Air 11/01/22 13:44 35.9 96 17 150/85 (106) 97 Room Air I & O 11/02/22 07:00 Intake Total 1450 ml Output Total 1300 ml Balance 150 ml Height & Weight Height: 5'11.00" Weight: 220lbs. 0oz. 99.925208if; 32.08 BMI Method:Stated General Appearance: Anxious, Obese HEENT: PERRL/EOMI, Pharynx Normal Neck: Full Range of Motion, Normal Inspection, Non Tender, Supple Respiratory: Chest Non Tender, Lungs Clear, Normal Breath Sounds, No Accessory Muscle Use, No Respiratory Distress Cardiovascular: Regular Rate, Rhythm, No Murmur, Normal Peripheral Pulses Capillary Refill: Less Than 3 Seconds Extremity: Normal Capillary Refill, Normal Inspection, No Pedal Edema Neurologic/Psychiatric: Alert, Oriented x3, awning maker II-XII Norm as Tested Skin: Normal Color, Diaphoresis Results Lab Laboratory Tests 11/01/22 13:48 Assessment/Plan Assessment/Plan 1 AMARA MINAYA MD Nov 02, 2022 11:10
--- NOTE | 2022-11-02 11:46 | History & Physical-Hospitalist ---
EMILIEALONZO I 11/02/22 1146: History of Present Illness HPI/Chief Complaint Arnulfo Nuno is a 47 year old male with past medical history of CAD with prior c ardiac stent placement 10/23, with balloon angioplasty done on Oct 26. On 10/31 he awoke at 01:30 with intense central chest pressure, he took 1 nitroglycerin tablet and tried to sleep, after taking a second 15 min later he was able to sleep until 7. He continued to have progressing central mid sternal chest pain which progressed until it became intolerable and visited [facility]. He was given something to swallow that took the pressure part away, revealing the underlying chest pain. He was given nitro paste on his chest while at [facility] and was sent to this hospital later that evening. Since his procedure 10 days ago he has felt weak. He has been on DAPT since that time. Source: patient Exam Limitations: no limitations Date Seen 11/02/22 Time Seen by a Provider: 13:00 Attending Physician Robin Martinez MD PCP Admitting Physician: Stephan Johnson MD Attending Physician: Lasha Burnett DO Referring Physician Date of Admission Nov 01, 2022 at 15:51 Home Medications & Allergies Home Medications Reviewed patient Home Medication Reconciliation performed by pharmacy medication reconciliations shift lab technician and/or nursing. Patients Allergies have been reviewed. 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[employer]) Tobacco Use?: No Smoking Status: Former Smoker Use of E-Cig and/or Vaping dev: No Substance use?: No Alcohol Use?: Yes Alcohol type: Beer Alcohol Frequency: Once in a while Pt feels they are or have been: No Immunizations Up To Date Date of Influenza Vaccine: Jul 25, 2022 Tetanus Booster (TDap): More Than 5 Years Hepatitis A: No Hepatitis B: Yes Seasonal Allergies Seasonal Allergies: No Current Status Advance Directives: No Communicates: Verbally Primary Language: [place] Citizen Preferred Spoken Language: [place] Citizen Is interpretation needed?: No Sensory deficits: Vision impairment Past Medical History Surgeries: Tonsillectomy High Cholesterol, Hypertension Diabetes, Insulin dep Blood Disorders: No Family Medical History Heart Disease Review of Systems Constitutional: see HPI EENTM: no symptoms reported Respiratory: no symptoms reported Cardiovascular: chest pain Gastrointestinal: nausea; No vomiting Genitourinary: no symptoms reported Musculoskeletal: no symptoms reported Skin: no symptoms reported All Other Systems Reviewed Negative Unless Noted: Yes Physical Exam Physical Exam Vital Signs Vital Signs - First Documented 11/01/22 13:44 Temp 35.9 Pulse 96 Resp 17 B/P (MAP) 150/85 (106) Pulse Ox 97 O2 Delivery Room Air Capillary Refill : Less Than 3 Seconds Height, Weight, BMI Height: 5'11.00" Weight: 220lbs. 0oz. 99.937714lv; 32.08 BMI Method:Stated General Appearance: No Apparent Distress Eyes: Right Eye Normal Inspection, Right Eye PERRL HEENT: PERRL/EOMI, TMs Normal, Normal ENT Inspection, Pharynx Normal, Moist Mucous Membranes Neck: Full Range of Motion, Normal Inspection, Non Tender Respiratory: No Chest Non Tender (Tender at PMI); Lungs Clear, Normal Breath Sounds, No Accessory Muscle Use Cardiovascular: Regular Rate, Rhythm, No Edema Gastrointestinal: Normal Bowel Sounds, Non Tender, Soft Rectal: Deferred Back: Normal Inspection Neurologic/Psychiatric: Alert, Oriented x3, No Motor/Sensory Deficits, Normal Mood/Affect Skin: Normal Color, Warm/Dry Results Results/Procedures Labs Laboratory Tests 11/01/22 13:48 Patient resulted labs reviewed. Assessment/Plan Admission Diagnosis Unstable Angina Assessment and Plan Unstable angina (cath performed on 10/24, with restent on 10/27) - Responsive to nitro - on DAPT - Troponin normal - Follow repeat EKG - continued chest pain - Cardiology to repeat catheterizing CAD - Previous stenting as above - on DAPT - Cardiology following HTN - Continue home BP medication - Continue to monitor HLD - Continue Atorvastatin T1DM - Monitor blood glucose - On insulin sliding scale GERD - on PPI? - Consider outpatient scope if pain persists Obese - encourage weight loss Back pain -PT/OT Clinical Quality Measures AMI/AHF: ASA po Prior to arrival: LASHA Snider DO 11/02/229: Assessment/Plan Admission Diagnosis Assessment: Unstable angina Recent cardiac catheterization with stent placement Blood sugar management Blood pressure management Plan: Cardiac cath today Supportive care Admission Status: Inpatient Order (span 2 midnights) Reason for Inpatient Admission: nstemi Supervisory-Addendum Brief Verification & Attestation Participated in pt care: history, MDM, physical Personally performed: exam, history, MDM, supervision of care Care discussed with: Medical Student Procedures: n/a Results interpretation: Verified all documentation Verification and Attestation of Medical Student E/M Service A medical student performed and documented this service in my presence. I reviewed and verified all information documented by the medical student and made modifications to such information, when appropriate. I personally performed the physical exam and medical decision making. Lasha Burnett, Nov 02, 2022,21:39 ALONZO PHAN I Nov 02, 2022 11:46 LASHA BURNETT DO Nov 02, 2022 21:39
[2022-11-02] MEDS ORDERED: DOCUSATE SODIUM 100 MG (COLACE) CAP PO PRN (13:45)
[2022-11-02] MEDS ORDERED: diphenhydrAMINE 25 MG TAB (BENADRYL) PO PRN (13:45)
[2022-11-02] MEDS ORDERED: ONDANSETRON 4 MG/2 ML (SDV) Z0FRAN IVP PRN (13:45)
[2022-11-02] MEDS ORDERED: ONDANSETRON 4 MG (ZOFRAN) ORAL DISSOLVE TAB PO PRN (13:45)
[2022-11-02] MEDS ORDERED: ALPRAZolam 0.25 MG (XANAX) TAB PO PRN (13:45)
[2022-11-02] MEDS ORDERED: MELATONIN 3 MG TABLET PO PRN (13:45)
[2022-11-02] MEDS ORDERED: CALCIUM CARBONATE 500 MG (TUMS) TAB.CHEW PO PRN (13:45)
[2022-11-02] MEDS ORDERED: MENTHOL/ZINC OXIDE (CALMOSEPTINE) 113 GM TUBE TP PRN (13:45)
[2022-11-02] MEDS ORDERED: ACETAMINOPHEN 325 MG TABLET PO PRN (13:45)
[2022-11-02] MEDS ORDERED: POTA99TA17 PO (15:20)
[2022-11-02] MEDS ORDERED: ACET-2 PO (15:20)
[2022-11-02] MEDS ORDERED: PANT40TA52 PO (15:20)
[2022-11-02] MEDS ORDERED: TURM500T PO (15:20)
[2022-11-02] MEDS ORDERED: ISOS30TA82 PO (15:20)
[2022-11-02] MEDS ORDERED: TICA90TA PO (15:20)
[2022-11-02] MEDS ORDERED: ASPI-1238 PO (15:20)
[2022-11-02] MEDS ORDERED: NF-ALLE180 PO (15:20)
[2022-11-02] MEDS ORDERED: NITR0.4T39 SL (15:20)
[2022-11-02] MEDS ORDERED: ROSU40TA23 PO (15:24)
[2022-11-02] MEDS: HYDROcodone/APAP 5 MG/325 MG (LORTAB) TAB PO PRN ×2 (15:25→20:18)
[2022-11-02] MEDS ORDERED: inSUlin ASPART (NovoLOG) 1 UNIT/0.01 ML (CHARGE PER UNIT) SC SCH (17:00)
[2022-11-02] MEDS: morphine INJ 4 MG/ML 1 ML (VIAL/SYRINGE) IV PRN ×2 (17:55→22:15)
[2022-11-02] MEDS: SENNA W/DOCUSATE (SENOKOT S) TABLET PO SCH (20:18)
[2022-11-02] MEDS ORDERED: PANTOPRAZOLE 40 MG (PROTONIX) TAB PO SCH (21:00)
[2022-11-02] MEDS ORDERED: ROSUVASTATIN 20 MG (CRESTOR) TABLET PO SCH (21:00)
[2022-11-03] MEDS: NITROGLYCERIN 2% OINT 1 GM UNIT DOSE PACKET TOP SCH ×2 (00:21→05:43)
[2022-11-03 05:33] LABS: HEMATOCRIT 41 % (40-54); HEMOGLOBIN 13.7 g/dL (13.3-17.7); MEAN CORPUSCULAR HEMOGLOBIN 29 pg (25-34); MEAN CORPUSCULAR HGB CONC 34 g/dL (32-36); MEAN CORPUSCULAR VOLUME 85 fL (80-99); MEAN PLATELET VOLUME 10.2 fL (9.0-12.2); PLATELET COUNT 209 10^3/uL (130-400); WHITE BLOOD COUNT 6.8 10^3/uL (4.3-11.0)
[2022-11-03] MEDS: NS IV 1000 ML 1,000 ML IV SCH (05:43)
[2022-11-03] MEDS: HYDROcodone/APAP 5 MG/325 MG (LORTAB) TAB PO PRN (05:44)
[2022-11-03 05:58] LABS: CALCIUM 9.3 MG/DL (8.5-10.1); CREATININE SERUM 1.09 MG/DL (0.60-1.30); POTASSIUM 5.1 MMOL/L (3.6-5.0)
[2022-11-03] MEDS ORDERED: lisINopril 20 MG (PRINIVIL) TABLET ONE (06:31)
[2022-11-03] MEDS: morphine INJ 4 MG/ML 1 ML (VIAL/SYRINGE) IV PRN (06:48)
[2022-11-03] MEDS ORDERED: METF-399 PO (06:52)
[2022-11-03] MEDS ORDERED: PRAS10TA10 PO (06:52)
[2022-11-03] MEDS ORDERED: glyBURIDE 2.5 MG (MICRONASE) TAB PO SCH (07:00)
[2022-11-03] MEDS ORDERED: MULTIVIT W/MINERALS TAB (THERAGRAN M) PO SCH (07:00)
[2022-11-03] MEDS ORDERED: OXC5T PO (08:21)
--- NOTE | 2022-11-03 08:24 | Discharge Summary ---
Discharge Summary Hospital Course Was the Problem List Reviewed?: Yes Problems/Dx: (1) NSTEMI (non-ST elevated myocardial infarction) (2) Chest pain Status: Acute (3) Coronary artery disease with unstable angina pectoris Status: Acute Qualifiers: Qualified Codes: I25.110 - Atherosclerotic heart disease of [place] coronary artery with unstable angina pectoris Hospital Course Date of Admission: Nov 01, 2022 at 15:51 Admission Diagnosis : Family Physician/Provider: Robin Martinez MD Date of Discharge: 11/03/22 Discharge Diagnosis: [ ] Hospital Course: Pt had an uneventful hospital course. He was admitted for unstable angina. He underwent cardiac catheterization revealing a stenosed stent. He was placed on Effient. He was discharged in improved condition. I did answer all of his 's questions at the bedside before discharge. Labs and Pending Lab Test: Laboratory Tests 11/02/22 12:07: Glucometer 160H 11/02/22 17:16: Glucometer 162H 11/03/22 05:00: White Blood Count 6.8, Red Blood Count 4.79, Hemoglobin 13.7, Hematocrit 41, Mean Corpuscular Volume 85, Mean Corpuscular Hemoglobin 29, Mean Corpuscular Hemoglobin Concent 34, Red Cell Distribution Width 12.9, Platelet Count 209, Mean Platelet Volume 10.2, Sodium Level 139, Potassium Level 5.1H, Chloride Level 109H, Carbon Dioxide Level 23, Anion Gap 7, Blood Urea Nitrogen 23H, Creatinine 1.09, Estimat Glomerular Filtration Rate 85, BUN/Creatinine Ratio 21, Glucose Level 176H, Calcium Level 9.3 Microbiology 11/01/22 MRSA Screen - Final, Complete MRSA not isolated Home Meds Active Oxyir Tablet (Oxycodone HCl) 5 Mg Tab 5 Mg PO Q6H Prasugrel HCl 10 Mg Tablet 10 Mg PO DAILY Metformin HCl 1,000 Mg Tablet 1,000 Mg PO BID Hold metformin for 48 hours Reported Rosuvastatin Calcium 40 Mg Tablet 40 Mg PO HS Nitroglycerin 0.4 Mg Tab.subl 0.4 Mg SL UD PRN Fexofenadine HCl 180 Mg Tablet 180 Mg PO HS Acetaminophen Pm Geltab (Acetaminophen/Diphenhydramine) 500 Mg-25 Mg Tablet 1 Each PO HS Potassium Gluconate 595 MG (Potassium Gluconate) 595 Mg (99 Mg) Tablet 99 Mg PO HS Turmeric (Turmeric Root Extract) 500 Mg Tablet 500 Mg PO BID Aspirin EC (Aspirin) 81 Mg Tablet.dr 81 Mg PO DAILY Pantoprazole Sodium 40 Mg Tablet.dr 40 Mg PO HS Isosorbide Mononitrate ER (Isosorbide Mononitrate) 30 Mg Tab.er.24h 30 Mg PO DAILY Novolog Flexpen (Insulin Aspart) 100 Unit/Ml (3 Ml) Solution Units SQ AC Nebivolol HCl 10 Mg Tablet 10 Mg PO HS Glyburide 5 Mg Tablet 5 Mg PO DAILY Coq-10 (Ubidecarenone) 100 Mg Capsule 100 Mg PO DAILY Multivitamin 1 Each Tablet 1 Each PO DAILY Soliqua 100 Unit-33 Mcg/ml Pen (Insulin Glargine/Lixisenatide) 100 Unit-33 Mcg/Ml (3 Ml) Insuln.pen 42 Units SC DAILY Farxiga (Dapagliflozin Propanediol) 10 Mg Tablet 10 Mg PO DAILY Lisinopril-Hctz 20-12.5 mg Tab (Lisinopril/Hydrochlorothiazide) 1 Each Tablet 1 Ea PO BID Assessment/Pt Instructions PCP 1 week Discharge Planning: <30 minutes discharge planning Discharge Instructions Discharge Diet: ADA Diet Discharge Physical Examination Vital Signs Vital Signs Date Time Temp Pulse Resp B/P (MAP) Pulse Ox O2 Delivery O2 Flow Rate FiO2 11/03/22 08:00 36.4 11/03/22 06:16 183/96 (125) 11/03/22 06:10 77 15 98 Room Air General Appearance: No Apparent Distress, WD/WN, Chronically ill Allergies: Coded Allergies: No Known Drug Allergies (Unverified , 05/14/19) Discharge Summary Date of Admission Nov 01, 2022 at 15:51 Date of Discharge Discharge Date: Nov 03, 2022 Admission Diagnosis Assessment: Unstable angina Recent cardiac catheterization with stent placement Blood sugar management Blood pressure management Plan: Cardiac cath today Supportive care Clinical Quality Measures AMI/AHF: ASA po Prior to arrival: LASHA Snider DO Nov 03, 2022 08:24
--- NOTE | 2022-11-03 08:39 | Cardiology Progress Note ---
Subjective Date Seen by Provider: Nov 03, 2022 Time Seen by Provider: 08:38 Subjective/Events-last exam Patient is laying down in bed, feeling better. Denied any chest pain. Review of Systems General: No Chills, No Night Sweats, No Fatigue, No Malaise, No Appetite, No Other HEENT: No Head Aches, No Visual Changes, No Eye Pain, No Ear Pain, No Dysphasia, No Sinus Congestion, No Post Nasal Drip, No Sore Throat, No Other Pulmonary: No Dyspnea, No Cough, No Pleuritic Chest Pain, No Other Cardiovascular: No: Chest Pain, Palpitations, Orthopnea, Paroxysmal Noc. Dyspnea, Edema, Lt Headedness, Other Objective-Cardiology Exam Last Set of Vital Signs Vital Signs 11/03/22 11/03/22 11/03/22 06:10 06:16 08:00 Temp 36.4 Pulse 77 Resp 15 B/P (MAP) 183/96 (125) Pulse Ox 98 O2 Delivery Room Air I&O Intake and Output 11/03/22 00:00 Intake Total 3490 ml Output Total 3925 ml Balance -435 ml Intake Oral 1490 ml IV Total 2000 ml Output Urine Total 3925 ml General: Alert, Oriented X3, Cooperative HEENT: Atraumatic, PERRLA Neck: Supple, No JVD, No Thyromegaly Lungs: Clear to Auscultation, Normal Air Movement Heart: Regular Rate, Normal S1, Normal S2, No Murmurs Abdomen: Normal Bowel Sounds, Soft, No Tenderness, No Hepatosplenomegaly, No Masses Extremities: No Clubbing, No Cyanosis, No Edema, Normal Pulses, No Tenderness/Swelling Skin: No Rashes, No Breakdown, No Significant Lesion Neuro: Normal Gait, Normal Speech, Strength at 5/5 X4 Ext, Normal Tone, Sensat ion Intact Psych/Mental Status: Mental Status NL, Mood NL Results Lab Laboratory Tests 11/03/22 05:00 A/P-Cardiology Admission Diagnosis Unstable angina Coronary artery disease Hypertension Hyperlipidemia Assessment/Plan Chest pain, unstable angina, reporting improvement. Continue to monitor Coronary artery disease, cardiac catheterization carried out on October 24, 2022 with 95% stenosis in the proximal LAD successful stenting using diana point 3.5 x 18 mm with excellent results. The stent was postdilated to 4.0 mm. Cardiac catheterization was done on October 27, 2022 with balloon angioplasty to the diagonal artery through the stent in the LAD then I did balloon angioplasty with 2.5 x 20 trek balloon. Cardiac catheterization was done on November 02, 2022 with stenting of the d iagonal artery and the stent was protruding in the LAD, balloon within the LAD stent with excellent results. No residual stenosis I switch him from Brilinta to Effient and continue on aspirin Hypertension, restart home medication and monitor blood pressure Hyperlipidemia, lipid profile was done on October 24, 2022 with total cholesterol 109, triglyceride 290, LDL 41. Currently on Crestor 40 mg daily Diabetes mellitus, followed and managed by primary care team Educated on avoiding metformin for the next 48 hours Gastroesophageal reflux disease Ex tobaccoism, stopped smoking recently. Educated on smoking cessation Family history of heart disease. BMI 35, educated on weight loss CITLALLI MARTIN MD Nov 03, 2022 08:39
[2022-11-03] MEDS ORDERED: oxyCODONE/APAP 5/325MG (PERCOCET 5) TABLET PO ONE (08:45)
[2022-11-03] MEDS: ASPIRIN E.C. 81 MG (ECOTRIN) TAB PO SCH (08:49)
[2022-11-03] MEDS: SENNA W/DOCUSATE (SENOKOT S) TABLET PO SCH (08:49)
[2022-11-03] MEDS ORDERED: NON-FORMULARY MEDICATION 1 EA EA (Multivitamin 1 EACH) PO SCH (09:00)
[2022-11-03] MEDS ORDERED: PRASUGREL 10 MG (EFFIENT) TABLET PO SCH (09:00)
[2022-11-03] MEDS ORDERED: GLYBURIDE 5 MG PO SCH (09:00)
[2022-11-03] MEDS ORDERED: HydroCHLOROthiazide CAP/TABLET 12.5 MG TAB PO SCH (09:00)
[2022-11-03] MEDS ORDERED: ISOSORBIDE MONONITRATE 30 MG (IMDUR) TAB PO SCH (09:00)
[2022-11-03] MEDS ORDERED: ASPIRIN E.C. 81 MG (ECOTRIN) TAB PO SCH (09:00)
[2022-11-03] MEDS ORDERED: NON-FORMULARY MEDICATION 1 EA EA (Dapagliflozin Propanediol (Farxiga) 10 MG) PO SCH (09:00)
[2022-11-03] MEDS ORDERED: NON-FORMULARY MEDICATION 1 EA EA (Ubidecarenone (Coq-10) 100 MG) PO SCH (09:00)
[2022-11-03] MEDS ORDERED: lisINopril 20 MG (PRINIVIL) TABLET PO SCH (09:00)
[2022-11-03] MEDS ORDERED: NON-FORMULARY MEDICATION 1 EA EA (Insulin Glargine/Lixisenatide (Soliqua 100 Unit-33 Mcg/m SC SCH (09:00)
--- NOTE | 2022-11-03 20:27 | Physician Query Clarification ---
Physician Query-General Query to Physician: Clinical Validation Clarification Dr Huber Jules NSTEMI has been documented in the medical record. After study, has NSTEMI been ruled out? If it has been ruled out, please documen t NSTEMI ruled out" in the progress notes and/or discharge summary. 1. Yes/Agreed, NSTEMI ruled out/is not clinically valid 2. Not agreed, NSTEMI has not been ruled out/is clinically valid* *Please document the clinical evidence supportive of this diagnosis (even if now resolved) in the Progress Notes and Discharge Summary 3. Other, with explanation of the clinical findings 4. Clinically undetermined, no explanation for the clinical findings Additional information: past medical history of CAD with prior cardiac stent placement 10/23, with balloon angioplasty done on Oct 26. On 10/31 he awoke at 01:30 with intense central chest pressure Troponin levels this admission <0.030 and <0.023, Cardiology consult and cardiac cath with Stent to the Diagonal Artery In responding to this query, please exercise your independent professional judgment. The purpose of this communication is to more accurately reflect the complexity of your patients condition. The fact that a question is asked does not imply that any particular answer is desired or expected. Thank you for your timely response to this clarification. Cindy Olvera MSN, RN Clinical History Faculty Member [email or web address] PHYSICIAN RESPONSE: Based on the clinical findings in the record, please respond to the query above on this document as an addendum. Physician Response: Physician Response 1 If you have questions please contact: Investor Relations Director: Ext: Thank you for your time and cooperation. Clinical History Faculty Member/Investor Relations Director This is a permanent part of the medical record CINDY OLVERA Nov 03, 2022 20:27 LASHA JULES DO Nov 04, 2022 04:29
== END 2022-11-03 10:00 | disposition home or self-care (01) | DRG 247 ==
LOC: EDUNIT# 13:39 → ER FS 13:41 → ICU 15:51
PROVIDERS: ADMIT Internal Medicine; ATTEND Internal Medicine
PROC: 027034Z Dilation of Coronary Artery, One Artery with Drug-eluting Intraluminal Device, Percutaneous Approach (ICD-10-PCS; principal; 2022-11-02)
PROC: 4A023N7 Measurement of Cardiac Sampling and Pressure, Left Heart, Percutaneous Approach (ICD-10-PCS; 2022-11-02)
PROC: B2111ZZ Fluoroscopy of Multiple Coronary Arteries using Low Osmolar Contrast (ICD-10-PCS; 2022-11-02)
PROC: B2151ZZ Fluoroscopy of Left Heart using Low Osmolar Contrast (ICD-10-PCS; 2022-11-02)
DX: I25.110 Atherosclerotic heart disease of native coronary artery with unstable angina pectoris (principal); E11.9 Type 2 diabetes mellitus without complications; I10 Essential (primary) hypertension; E78.00 Pure hypercholesterolemia, unspecified; E66.9 Obesity, unspecified; K21.9 Gastro-esophageal reflux disease without esophagitis; M54.9 Dorsalgia, unspecified; Z79.82 Long term (current) use of aspirin; Z79.4 Long term (current) use of insulin; Z79.84 Long term (current) use of oral hypoglycemic drugs; Z87.891 Personal history of nicotine dependence; Z68.35 Body mass index [BMI] 35.0-35.9, adult; Z82.49 Family history of ischemic heart disease and other diseases of the circulatory system
CPT/HCPCS: 36415; 71045; 80048; 80053; 82947; 83690; 83735; 83874; 83880; 84484; 85025; 85027; 85610; 85730; 87081; 93005; 93041; 93458

== ENCOUNTER 2023-09-01 05:57 | Inpatient (IN) | payer BC ==
[~2023-09-01] VITALS: Ht 180 cm; Wt 107.9 kg
[~2023-09-01 05:57] MED LIST changes: +ACET-2 PO; +INSU100I14 SQ; -INSU3INS2 SC; +INSU3INS2 SQ; +NEBI10TA11 PO; +NEBI5TAB2 PO; -NEBI5TAB8 PO; +NF-ALLE180 PO; +NITR0.4T39 SL; +OXC5T PO; +PANT40TA52 PO; +POTA99TA17 PO; +PRAS10TA10 PO; +ROSU40TA23 PO; +TURM500T PO
[2023-09-01] MEDS: NITROGLYCERIN 0.4 MG SL TABLETS BTL 25'S SL PRN ×2 (06:24→06:40)
[2023-09-01 06:27] LABS: BASOPHILS % (AUTO) 1 % (0-10); EOSINOPHILS # (AUTO) 0.2 10^3/uL (0.0-0.3); EOSINOPHILS % (AUTO) 4 % (0-10); HEMATOCRIT 46 % (40-54); HEMOGLOBIN 15.9 g/dL (13.3-17.7); LYMPHOCYTES % (AUTO) 31 % (12-44); MEAN CORPUSCULAR HEMOGLOBIN 29 pg (25-34); MEAN CORPUSCULAR HGB CONC 35 g/dL (32-36); MEAN CORPUSCULAR VOLUME 84 fL (80-99); MEAN PLATELET VOLUME 9.9 fL (9.0-12.2); MONOCYTES # (AUTO) 0.6 10^3/uL (0.0-1.0); MONOCYTES % (AUTO) 9 % (0-12); NEUTROPHILS # (AUTO) 3.5 10^3/uL (1.8-7.8); NEUTROPHILS % (AUTO) 55 % (42-75); PLATELET COUNT 259 10^3/uL (130-400); WHITE BLOOD COUNT 6.3 10^3/uL (4.3-11.0)
[2023-09-01] MEDS ORDERED: ASPIRIN 81 MG CHEWABLE TABLET PO ONE (06:30)
--- NOTE | 2023-09-01 06:37 | ED Chest Pain ---
General Chief Complaint: Chest Pain Stated Complaint: CHEST PAIN|SOB Source: patient Exam Limitations: no limitations (ALEM JACKSON MD) History of Present Illness Date Seen by Provider: Sep 01, 2023 Time Seen by Provider: 06:05 Initial Comments 48-year-old male patient with history of coronary artery disease a status post a stent placement in October 2022, hypertension, hyperlipidemia, diabetes mellitus presented POV with complaining of chest. Patient complaining of left-sided pressure chest pain as a constant pain for the last 6 days with radiation to left arm and numbness of left upper extremity, associated with shortness of breath, dizziness, palpitation, nausea. Patient stated he took nitro several times with improvement of his pain. Patient stated his pain was 10/10 when he went to work at 3 AM and take nitro at 0530 and pain dropped to 6 or 7 and because of continuing the pain and increasing chest pain he decided to come to ER. Patient was diaphoretic and anxious at arrival to ER. Patient stated he had cough and cold 1 week ago that improved spontaneously. (ALEM JACSKON MD) Allergies and Home Medications Allergies Coded Allergies: No Known Drug Allergies (Unverified , 05/14/19) Patient Home Medication List Home Medication List Reviewed: Yes (ALEM JACKSON MD) Home Medication List Reviewed: Yes (PETER CARDOZA MD) Acetaminophen/Diphenhydramine (Acetaminophen Pm Geltab) 500 Mg-25 Mg Tablet, 1 EACH PO HS, (Reported) Entered as Reported by: MALIK LEONG on 11/02/22 1520 Aspirin (Aspirin EC) 81 Mg Tablet.dr, 81 MG PO DAILY, (Reported) Entered as Reported by: MALIK LENOG on 11/02/22 1520 Dapagliflozin Propanediol (Farxiga) 10 Mg Tablet, 10 MG PO DAILY, (Reported) Entered as Reported by: MALIK LEONG on 12/02/20 160 Fexofenadine HCl (Fexofenadine HCl) 180 Mg Tablet, 180 MG PO HS, (Reported) Entered as Reported by: MALIK LEONG on 11/02/22 1520 Glyburide (Glyburide) 5 Mg Tablet, 5 MG PO DAILY, (Reported) Entered as Reported by: MALIK LEONG on 12/02/20 160 Insulin Aspart (Novolog Flexpen) 100 Unit/Ml (3 Ml) Solution, UNITS SQ AC, (Reported) Entered as Reported by: YOLANDA CARDONA on 11/01/22 162 Insulin Glargine/Lixisenatide (Soliqua 100 Unit-33 Mcg/ml Pen) 100 Unit-33 Mcg/Ml (3 Ml) Insuln.pen, 42 UNITS SC DAILY, (Reported) Entered as Reported by: MALIK LEONG on 12/02/20 160 Isosorbide Mononitrate (Isosorbide Mononitrate ER) 30 Mg Tab.er.24h, 30 MG PO DAILY, (Reported) Entered as Reported by: MALIK LEONG on 11/02/22 152 Lisinopril/Hydrochlorothiazide (Lisinopril-Hctz 20-12.5 mg Tab) 1 Each Tablet, 1 EA PO BID, (Reported) Entered as Reported by: MALIK LEONG on 12/02/20 160 Metformin HCl (Metformin HCl) 1,000 Mg Tablet, 1,000 MG PO BID Prescribed by: CITLALLI CLAY on 11/03/22 0652 Multivitamin (Multivitamin) 1 Each Tablet, 1 EACH PO DAILY, (Reported) Entered as Reported by: MALIK LEONG on 12/02/20 160 Nebivolol HCl (Nebivolol HCl) 10 Mg Tablet, 10 MG PO HS, (Reported) Entered as Reported by: YOLANDA CARDONA on 11/01/22 162 Nitroglycerin (Nitroglycerin) 0.4 Mg Tab.subl, 0.4 MG SL UD PRN for CHEST PAIN, (Reported) Entered as Reported by: MALIK LEONG on 11/02/22 152 Oxycodone Hcl (Oxyir Tablet) 5 Mg Tab, 5 MG PO Q6H Prescribed by: LASHA BURNETT on 11/03/22 0822 Pantoprazole Sodium (Pantoprazole Sodium) 40 Mg Tablet.dr, 40 MG PO HS, (Reported) Entered as Reported by: MALIK LEONG on 11/02/22 152 Potassium Gluconate (Potassium Gluconate 595 MG) 595 Mg (99 Mg) Tablet, 99 MG PO HS, (Reported) Entered as Reported by: MALIK LEONG on 11/02/22 152 Prasugrel HCl (Prasugrel HCl) 10 Mg Tablet, 10 MG PO DAILY Prescribed by: CITLALLI CLAY on 11/03/22 0652 Rosuvastatin Calcium (Rosuvastatin Calcium) 40 Mg Tablet, 40 MG PO HS, (Reported) Entered as Reported by: MALIK LEONG on 11/02/22 1524 Turmeric Root Extract (Turmeric) 500 Mg Tablet, 500 MG PO BID, (Reported) Entered as Reported by: MALIK LEONG on 11/02/22 1520 Ubidecarenone (Coq-10) 100 Mg Capsule, 100 MG PO DAILY, (Reported) Entered as Reported by: MALIK LEONG on 12/02/20 1607 Review of Systems Review of Systems Constitutional: see HPI EENTM: No Symptoms Reported Respiratory: See HPI Cardiovascular: See HPI Gastrointestinal: See HPI Genitourinary: No Symptoms Reported Musculoskeletal: see HPI Skin: see HPI Psychiatric/Neurological: No Symptoms Reported Endocrine: No Symptoms Reported Hematologic/Lymphatic: No Symptoms Reported (ALEM JACKSON MD) EENTM: Nose Congestion Respiratory: Cough, Shortness of Air; Denies Stridor, Denies Wheezing (PETER CARDOZA MD) All Other Systems Reviewed Negative Unless Noted: Yes (ALEM JACKSON MD) Past Kvrsxhg-Ykztes-Ogccys Hx Patient Social History Tobacco Use?: No Substance use?: No Alcohol Use?: No Pt feels they are or have been: No (ALEM JACKSON MD) Seasonal Allergies Seasonal Allergies: No (ALEM JACKSON MD) Past Medical History Surgery/Hospitalization HX: Cardiac Stent, [place] Surgeries: Yes (left wrist) Tonsillectomy Respiratory: No Cardiac: Yes High Cholesterol, Hypertension Neurological: No Genitourinary: No Gastrointestinal: No Musculoskeletal: No Endocrine: Yes Diabetes, Insulin dep HEENT: No Cancer: No Psychosocial: No Integumentary: No Blood Disorders: No (ALEM JACKSON MD) Family Medical History Heart Disease (ALEM JACKSON MD) Physical Exam Vital Signs Vital Signs - First Documented 09/01/23 06:02 Temp 36.3 Pulse 102 Resp 24 B/P (MAP) 167/89 (115) Pulse Ox 95 O2 Delivery Room Air (PETER CARDOZA MD) Vital Signs Capillary Refill : (ALEM JACKSON MD) Height, Weight, BMI Height: 5'11.00" Weight: 220lbs. 0oz. 99.867320ur; 32.08 BMI Method:Stated General Appearance: Anxious, Moderate Distress HEENT: PERRL/EOMI Neck: Full Range of Motion, Normal Inspection Respiratory: Chest Non Tender, Lungs Clear, Normal Breath Sounds, No Accessory Muscle Use, No Respiratory Distress, Other (Reproducible left-sided chest pain) Cardiovascular: No Edema, No Gallop, No JVD, No Murmur, Tachycardia Gastrointestinal: Normal Bowel Sounds, No Organomegaly, No Pulsatile Mass, Non Tender, Soft Extremity: Normal Capillary Refill, Normal Inspection, Normal Range of Motion, Non Tender Neurologic/Psychiatric: Alert, Oriented x3, No Motor/Sensory Deficits Skin: Diaphoresis (ALEM JACKSON MD) Critical Care Note Critical Care Total Time (minutes) 45 minutes Progress At least 45 minutes of critical care time with the patient. Time excludes sep arately billable procedures. Time was spent obtaining history from patient, broker in charge doctor, prior admission and cardiology notes from October 2022, reviewing test results, ordering interventions and reviewing response, discussion with consultants, documentation in the chart. Patient was exhibiting some unstable anginal symptoms as well as being hyperglycemic with insulin-dependent diabetes and positive for COVID infection. He was at risk of cardiovascular and pulmonary compromise and collapse. He required my immediate attention and intervention to continue to stabilize his condition and arrange for transfer to a higher level of care. (PETER CARDOZA MD) Progress/Results/Core Measures Results/Orders Lab Results Laboratory Tests Test 09/01/23 06:10 09/01/23 06:14 Range/Units White Blood Count 6.3 4.3-11.0 10^3/uL Red Blood Count 5.42 4.30-5.52 10^6/uL Hemoglobin 15.9 13.3-17.7 g/dL Hematocrit 46 40-54 % Mean Corpuscular Volume 84 80-99 fL Mean Corpuscular Hemoglobin 29 25-34 pg Mean Corpuscular Hemoglobin Concent 35 32-36 g/dL Red Cell Distribution Width 12.9 10.0-14.5 % Platelet Count 259 130-400 10^3/uL Mean Platelet Volume 9.9 9.0-12.2 fL Immature Granulocyte % (Auto) 1 % Neutrophils (%) (Auto) 55 42-75 % Lymphocytes (%) (Auto) 31 12-44 % Monocytes (%) (Auto) 9 0-12 % Eosinophils (%) (Auto) 4 0-10 % Basophils (%) (Auto) 1 0-10 % Neutrophils # (Auto) 3.5 1.8-7.8 10^3/uL Lymphocytes # (Auto) 2.0 1.0-4.0 10^3/uL Monocytes # (Auto) 0.6 0.0-1.0 10^3/uL Eosinophils # (Auto) 0.2 0.0-0.3 10^3/uL Basophils # (Auto) 0.0 0.0-0.1 10^3/uL Immature Granulocyte # (Auto) 0.0 0.0-0.1 10^3/uL Prothrombin Time 12.3 12.2-14.7 SEC INR Comment 0.9 0.8-1.4 Activated Partial Thromboplast Time 26 24-35 SEC D-Dimer 0.24 0.00-0.49 UG/ML Sodium Level 136 135-145 MMOL/L Potassium Level 4.1 3.6-5.0 MMOL/L Chloride Level 98 98-107 MMOL/L Carbon Dioxide Level 24 21-32 MMOL/L Anion Gap 14 5-14 MMOL/L Blood Urea Nitrogen 18 7-18 MG/DL Creatinine 1.20 0.60-1.30 MG/DL Estimat Glomerular Filtration Rate 75 BUN/Creatinine Ratio 15 Glucose Level 282 H 70-105 MG/DL Calcium Level 10.1 8.5-10.1 MG/DL Corrected Calcium 9.9 8.5-10.1 MG/DL Magnesium Level 2.3 1.6-2.4 MG/DL Total Bilirubin 0.8 0.1-1.0 MG/DL Aspartate Amino Transf (AST/SGOT) 28 5-34 U/L Alanine Aminotransferase (ALT/SGPT) 46 0-55 U/L Alkaline Phosphatase 118 40-136 U/L Troponin I < 0.30 <0.30 NG/ML Pro-B-Type Natriuretic Peptide < 36.0 <125.0 PG/ML Total Protein 8.1 6.4-8.2 GM/DL Albumin 4.3 3.2-4.5 GM/DL Influenza Type A (RT-PCR) Not Detected Not Detecte Influenza Type B (RT-PCR) Not Detected Not Detecte SARS-CoV-2 RNA (RT-PCR) Detected H Not Detecte (PETER CARDOZA MD) My Orders Orders - PETER CARDOZA MD Nitroglycerin Ointment (Nitroglycerin (09/01/23 07:03) Ekg Tracing (09/01/23 07:04) Ns Iv 1000 Ml (Ns Iv 1000 Ml) (09/01/23 07:37) Morphine Injection (Morphine Injection (09/01/23 07:37) Enoxaparin Injection (09/01/23 07:45) Ed Admission (Communication) (09/01/23 07:46) (PETER CARDOZA MD) Medications Given in ED Current Medications Medications Dose Ordered Sig/Zana Route Start Time Stop Time Status Last Admin Dose Admin Aspirin 324 mg ONCE ONCE PO 09/01/23 06:30 09/01/23 06:31 DC 09/01/23 06:24 324 MG Lorazepam 0.5 mg ONCE ONCE IVP 09/01/23 06:30 09/01/23 06:31 DC 09/01/23 06:30 0.5 MG Nitroglycerin 0.4 mg UD PRN SL 09/01/23 06:30 09/01/23 06:40 0.4 MG (PETER CARDOZA MD) Vital Signs/I&O 09/01/23 06:02 Temp 36.3 Pulse 102 Resp 24 B/P (MAP) 167/89 (115) Pulse Ox 95 O2 Delivery Room Air (PETER CARDOZA MD) Progress Progress Note : Progress Note Differential diagnosis: Acute MO, PE, anxiety, COVID. 48-year-old male patient with JENNIE score of 4 presented POV with complaining of chest pain for the last5-6 days that getting better with taking nitro. Patient had nitro x1 in ER and pain dropped from 8-3. Patient treated with Ativan because of anxiety. Patient complaining of pain again and another nitro was given. Labs is pending. EKG did not show acute ST elevation. Patient care transferred to Dr. Cardoza at 0700. (ALEM JACKSON MD) Progress Note #1: Time: 06:45 Progress Note I assumed care of the patient from Dr. Jackson. He was having recurrent chest pain even at rest as well as with activity. Getting worse since Wednesday. No acute ST elevation on electrocardiogram and Chest xray without acute process. His CBC did not show any acute significant abnormality and his coagulation factors were in normal range as well. He had a negative D dimer at 0.24. Comprehensive metabolic profile shows elevated Glucose to 282. His Magnesium was normal at 2.3 and troponin <0.3 with proBNP <36. He reports he was having improvement with the nitroglycerin sublingual doses but within 5-10 minutes the pain comes back. He currently rates his pain at 8 out of 10 and is a burning pain in left chest and pectoral area that radiates down his left arm. Feels similar to October 2022 when he had to have a stent placed with Dr. Clay. I ordered a repeat ECG as well as an inch of nitroglycerin paste to see if that would help his pain. Heart rate is 98 with O2 sat of 95%. Blood pressure 127/61. Since he is having unstable angina symptoms and has JENNIE score of 4 will check with chief information security officer cardiology about transfer to [place]. 0710 Lab called with positive Covid result for the patient. Influenza was negative. Progress Note #2: Time: 07:45 Progress Note Patient was still having burning chest pain going into his left arm with the Nitropaste. I have ordered 4 mg of morphine IV to try and help further with this pain. He had a negative troponin and no ST elevation on his EKG but was having some shortness of breath and is positive for COVID. He reports that he was having some cough and cold symptoms that had started on Wednesday or of last week. It seemed to improve over the weekend. He did not show any acute abnormality on his chest x-ray and his oxygen saturation has been staying 94 to 96% on room air. Since his glucose was 282 I did not order any dexamethasone for his COVID symptoms. He did already take his morning medications for diabetes including Soliqua, Farxiga, glyburide, metformin. d/w Dr. Haskins, chief information security officer resident for [facility] and Dr. Isabel, about the patient and his presentation and history. He is positive for COVID which may be contributing to his symptoms but is not actively coughing or showing hypoxia. He also has hyperglycemia with type 1 diabetes with sugars running at 282. His symptoms are consistent with some unstable angina as he was having chest pain at rest as well as with activity. He did not show any acute abnormality on his ch est x-ray. He was not showing ST elevation on his electrocardiogram. Pain was improved with nitroglycerin but not resolved. No steroids have been given for the COVID since his glucose was 282. He was given 4 mg of morphine to try and help with the chest pain. He had already received 324 mg of aspirin along with 0.5 mg of Ativan and sublingual nitroglycerin x2 on arrival to the ED. I did order Nitropaste 1 inch to try and help with the symptoms. Will discuss with Dr. Clay his primary bowl sander about the symptoms as well. [address] Clay, his primary bowl sander, and he recommended making sure the patient was given aspirin and Lovenox. Patient was given 324 mg of aspirin on arrival to the ED this morning. Added Lovenox at 1 mg/kg or 110 mg. Discussed with DAGMAR Aaron the equipment operator warehouse at [facility]. He will place a Cardiac stepdown bed number on the track board for the patient (PETER CARDOZA MD) Initial ECG Impression Date: Sep 01, 2023 Initial ECG Impression Time: 06:08 Initial ECG Rate: 106 Initial ECG Rhythm: S.Tach Initial ECG Intervals EKG interpreted by me and showed sinus tachycardia at rate of 106, KS interval of 169, QT interval of 317 and QTc interval of 379, QRS duration of 93, Q waves in inferior leads, poor R wave progression anteroseptal leads, no acute ST and T wave elevation (ALEM JACKSON MD) EKG : EKG Time: 07:31 Rate: 99 Rhythm: Normal Sinus ECG Comparisson: Unchanged Comment Repeat electrocardiogram obtained at 731 shows sinus rhythm with occasional ectopic premature complexes. There is artifact on the tracing. Heart rate is 99 bpm. KS interval [address] elevation. QT interval 340 ms with a QTc interval 396 ms. He does have some inferior and anterolateral Q waves similar to his initial tracing this morning. These were not seen on the previous tracing November 03, 2022. (PETER CARDOZA MD) Diagnostic Imaging Diagonstic Imaging: Xray Plain Films/CT/US/NM/MRI: chest Comments [facility] [place] NAME: DALLIN [facility] REC#: [id number] PT STATUS: REG ER : 1975 PHYSICIAN: ALEM JACKSON MD ADMIT DATE: 09/01/23/ER FS Draft Date of Exam:09/01/23 CHEST 1 VIEW AP/PA ONLY CLINICAL INDICATION: Patient with chest pain. EXAM: Portable chest x-ray upright view. COMPARISON: Chest x-ray dated 11/01/2022. FINDINGS: Lungs/pleura: There is mild bibasilar atelectasis. There is no lung infiltrate. There is no pneumothorax. There is no pleural effusion. Mediastinum: Unremarkable. Pulmonary vasculature: Unremarkable. Heart: Unremarkable. Bones/extrathoracic soft tissue: Unremarkable. IMPRESSION: There is no radiographic evidence of acute cardiopulmonary process. There is mild bibasilar atelectasis. Dictated on workstation # [id number] Dict: 09/01/23 0645 Trans: 09/01/23 0649 [facility] [id number] Interpreted by: DEVEN MONTELONGO MD Electronically signed by: Reviewed: Reviewed by Fl (PETER CARDOZA MD) Transfer of Care Time: 07:00 Care transferred to: Dr Cardoza (ALEM JACKSON MD) Departure Communication (Admissions) Time/Spoke to Admitting Phy: 07:45 d/w Dr. Haskins, chief information security officer resident for [facility] and Dr. Isabel, about the patient and his presentation and history. He is positive for COVID which may be contributing to his symptoms but is not actively coughing or showing hypoxia. He also has hyperglycemia with type 1 diabetes with sugars running at 282. His symptoms are consistent with some unstable angina as he was having chest pain at rest as well as with activity. He did not show any acute abnormality on his chest x-ray. He was not showing ST elevation on his electrocardiogram. Pain was improved with nitroglycerin but not resolved. No steroids have been given for the COVID since his glucose was 282. He was given 4 mg of morphine to try and help with the chest pain. He had already received 324 mg of aspirin along with 0.5 mg of Ativan and sublingual nitroglycerin x2 on arrival to the ED. I did order Nitropaste 1 inch to try and help with the symptoms. Will discuss with Dr. Clay his primary bowl sander about the symptoms as well. Time/Spoke to Consulting Phy: 07:[address] Clay, primary bowl sander for the patient, and he recommended adding in Lovenox in addition to his aspirin he had already received. He will follow the patient along with the [facility] service. (PETER CARDOZA MD) Impression Primary Impression: Chest pain Qualified Codes: R07.89 - Other chest pain Additional Impressions: COVID-19 virus infection Insulin dependent diabetes mellitus Hyperglycemia due to type 1 diabetes mellitus Disposition: 30 STILL A PATIENT Condition: Critical Admissions Decision to Admit Reason: Admit from ER (General) Decision to Admit/Date: Sep 01, 2023 Time/Decision to Admit Time: 07:45 (PETER CARDOZA MD) Departure-Patient Inst. Referrals: CATINA CHEW MD (PCP/Family) Primary Care Physician ALEM JACKSON MD Sep 01, 2023 06:37 PETER CARDOZA MD Sep 01, 2023 07:18
[2023-09-01 06:48] LABS: POTASSIUM 4.1 MMOL/L (3.6-5.0)
--- NOTE | 2023-09-01 06:50 | Diagnostic Imaging Report ---
CLINICAL INDICATION: Patient with chest pain. EXAM: Portable chest x-ray upright view. COMPARISON: Chest x-ray dated 11/01/2022. FINDINGS: Lungs/pleura: There is mild bibasilar atelectasis. There is no lung infiltrate. There is no pneumothorax. There is no pleural effusion. Mediastinum: Unremarkable. Pulmonary vasculature: Unremarkable. Heart: Unremarkable. Bones/extrathoracic soft tissue: Unremarkable. IMPRESSION: There is no radiographic evidence of acute cardiopulmonary process. There is mild bibasilar atelectasis. Dictated by: Dictated on workstation # [id number]
[2023-09-01 06:55] LABS: CARBON DIOXIDE 24 MMOL/L (21-32); CHLORIDE 98 MMOL/L (98-107); SODIUM 136 MMOL/L (135-145)
[2023-09-01 06:56] LABS: ALANINE AMINOTRANSFERASE 46 U/L (0-55); ALBUMIN 4.3 GM/DL (3.2-4.5); ALKALINE PHOSPHATASE 118 U/L (40-136); BILIRUBIN,TOTAL 0.8 MG/DL (0.1-1.0); BUN/CREATININE RATIO 15; CALCIUM 10.1 MG/DL (8.5-10.1); GFR ESTIMATED 75; GLUCOSE 282 MG/DL (70-105); MAGNESIUM 2.3 MG/DL (1.6-2.4); TOTAL PROTEIN 8.1 GM/DL (6.4-8.2)
[2023-09-01 07:01] LABS: INR 0.9 (0.8-1.4); PROTHROMBIN TIME PATIENT 12.3 SEC (12.2-14.7)
[2023-09-01 07:02] LABS: FIBRIN DEGRADATION PRODUCTS 0.24 UG/ML (0.00-0.49)
[2023-09-01] MEDS ORDERED: NITROGLYCERIN 2% OINT 1 GM UNIT DOSE PACKET TOP STA (07:03)
[2023-09-01] MEDS ORDERED: NS IV 1000 ML 1,000 ML IV STA (07:37)
[2023-09-01] MEDS ORDERED: morphine INJ 10 MG/ML 1ML (SYR OR VIAL) IVP STA (07:37)
[2023-09-01] MEDS ORDERED: ENOXAPARIN 60 MG/0.6 ML SYRINGE SC STA (07:45)
[2023-09-01 09:30] VITALS: BP 142/89
[2023-09-01 09:45] VITALS: BP 125/91
[2023-09-01] MEDS ORDERED: oxyCODONE IMMEDIATE RELEASE 5 MG TABLET PO PRN (09:45)
[2023-09-01] MEDS ORDERED: NALOXONE 0.4 MG/ML 1 ML VIAL IV PRN (09:45)
[2023-09-01] MEDS: morphine INJ 4 MG/ML 1 ML (VIAL/SYRINGE) IV PRN ×3 (09:54→20:53)
[2023-09-01] MEDS: ACETAMINOPHEN 500 MG TABLET PO SCH ×2 (09:55→18:02)
[2023-09-01 10:15] VITALS: BP 127/79
[2023-09-01 10:30] VITALS: BP 130/92
[2023-09-01] MEDS: NITRO DRIP 25000 MCG/D5W 250 ML IV SCH (10:39)
[2023-09-01] MEDS ORDERED: ONDANSETRON INJECTION 4 MG/2 ML (SDV) IVP PRN (10:45)
[2023-09-01] MEDS ORDERED: ONDANSETRON 4 MG ORAL DISSOLVE TABLET PO PRN (10:45)
--- NOTE | 2023-09-01 11:08 | Consultation-Cardiology ---
HPI-Cardiology Cardiology Consultation Date of Consultation 09/01/23 Date of Admission Time Seen by Provider: 10:15 Indication: Chest pain HPI Patient is a 48 y/o male with history of CAD with stent to the LAD and diagnonal, history of chronic stable angina with extensive workup done earlier this year, presented to the ER with complaints of chest pain. Reports he had sore throat and congestion last week, approx 5-6 days ago began developing increasing chest pain. Reports chest pain is consistent and occasionally relieved by NG. Reporting active chest pain at the time. Denies any dyspnea, dizziness, lightheadedness or syncope. Home Medications & Allergies Allergies: Coded Allergies: No Known Drug Allergies (Unverified , 05/14/19) Home Medication List Reviewed: Yes [id number] Hx Patient Social History Marital Status: Employed/Student: employed 2nd [employer] Smoke Exposure: No Recent Hopitalizations: No Alcohol Use?: No Immunizations Up To Date Date of Influenza Vaccine: Jul 24, 2023 Past Medical History CAD, HTN, HLP, DM Family Medical History Significant Family History: Heart Disease Review of Systems-General Review of Systems Constitutional: see HPI, malaise EENTM: see HPI, no symptoms reported Respiratory: see HPI, cough, phlegm Cardiovascular: see HPI, chest pain, Hx of Intervention; No syncope Gastrointestinal: no symptoms reported Musculoskeletal: see HPI Skin: see HPI Psychiatric/Neurological: No Symptoms Reported All Other Systems Reviewed Negative Unless Noted: Yes Reviewed Test Results Reviewed Test Results Lab Laboratory Tests 09/01/23 06:10: White Blood Count 6.3, Red Blood Count 5.42, Hemoglobin 15.9, Hematocrit 46, Mean Corpuscular Volume 84, Mean Corpuscular Hemoglobin 29, Mean Corpuscular Hemoglobin Concent 35, Red Cell Distribution Width 12.9, Platelet Count 259, Mean Platelet Volume 9.9, Immature Granulocyte % (Auto) 1, Neutrophils (%) (Auto) 55, Lymphocytes (%) (Auto) 31, Monocytes (%) (Auto) 9, Eosinophils (%) (Auto) 4, Basophils (%) (Auto) 1, Neutrophils # (Auto) 3.5, Lymphocytes # (Auto) 2.0, Monocytes # (Auto) 0.6, Eosinophils # (Auto) 0.2, Basophils # (Auto) 0.0, Immature Granulocyte # (Auto) 0.0, Prothrombin Time 12.3, INR Comment 0.9, Activated Partial Thromboplast Time 26, D-Dimer 0.24, Sodium Level 136, Potassium Level 4.1, Chloride Level 98, Carbon Dioxide Level 24, Anion Gap 14, Blood Urea Nitrogen 18, Creatinine 1.20, Estimat Glomerular Filtration Rate 75, BUN/Creatinine Ratio 15, Glucose Level 282H, Calcium Level 10.1, Corrected Calcium 9.9, Magnesium Level 2.3, Total Bilirubin 0.8, Aspartate Amino Transf (AST/SGOT) 28, Alanine Aminotransferase (ALT/SGPT) 46, Alkaline Phosphatase 118, Troponin I < 0.30, Pro-B-Type Natriuretic Peptide < 36.0, Total Protein 8.1, Albumin 4.3 09/01/23 06:14: Influenza Type A (RT-PCR) Not Detected, Influenza Type B (RT-PCR) Not Detected, SARS-CoV-2 RNA (RT-PCR) DetectedH 09/01/23 11:11: Glucometer 174H ECG Impression ECG Initial ECG Rhythm: Normal Sinus Physical Exam Physical Exam Vital Signs Vital Signs - First Documented 09/01/23 06:02 Temp 36.3 Pulse 102 Resp 24 B/P (MAP) 167/89 (115) Pulse Ox 95 O2 Delivery Room Air Capillary Refill : Less Than 3 Seconds Height, Weight, BMI Height: 5'11.00" Weight: 220lbs. 0oz. 99.028172zi; 33.00 BMI Method:Stated General Appearance: No Apparent Distress, Anxious HEENT: PERRL/EOMI Neck: Full Range of Motion, Normal Inspection Respiratory: Chest Non Tender, Lungs Clear, Normal Breath Sounds, No Accessory Muscle Use, No Respiratory Distress, Other (Reproducible left-sided chest pain) Cardiovascular: No Edema, No Gallop, No JVD, No Murmur, Tachycardia Gastrointestinal: Normal Bowel Sounds, No Organomegaly, No Pulsatile Mass, Non Tender, Soft Extremity: Normal Capillary Refill, Normal Inspection, Normal Range of Motion, Non Tender Neurologic/Psychiatric: Alert, Oriented x3, No Motor/Sensory Deficits Skin: Diaphoresis A/P-Cardiology Admission Diagnosis Chest pain COVID-19 illness CAD HTN DM Assessment/Plan Chest pain, history of recurrent pain, history of chronic stable angina. EKG showing no acute ST changes, troponin negative. Has had extensive workup in the past as discussed below. Will continue with conservative management. Patient had a cardiac MRI done in January 2023 and it was normal. No findings of inflammation or myocarditis or pericarditis, normal LV size, EF 64%, normal RV size, RV EF 67%, no gadolinium enhancement. Patient did not have good response to Isosorbide or amlodipine, did not relieve the chest pain. Currently on Ranexa as outpatient. Has been having increasing episodes of chest pain over the last month. I will increase her Ranexa to 1000 mg twice daily and adding Protonix and evaluate tolerance and response COVID-19 illness, patient is laying down comfortable, no significant dyspnea Managed by medical team. I am concerned about possible hypercoagulable state but his D-dimer is normal Coronary artery disease, Cardiac catheterization carried out on October 24, 2022 with 95% stenosis in the proximal LAD successful stenting using diana point 3.5 x 18 mm with excellent results. The stent was postdilated to 4.0 mm. Cardiac catheterization was done on October 27, 2022 with balloon angioplasty to the diagonal artery through the stent in the LAD then I did balloon angioplasty with 2.5 x 20 trek balloon. Cardiac catheterization was done on November 02, 2022 with stenting of the diagonal artery and the stent was protruding in the LAD, balloon within the LAD stent with excellent results. No residual stenosis Patient continued to have recurrent chest pain and went to [facility] and had another cardiac catheterization October 2022 and I recommended conservative management did not find any significant blockage. Maintained on aspirin and Effient. Hypertension, restart home blood pressure medications and continue to monitor. Hyperlipidemia, lipid profile was done on October 24, 2022 with total cholesterol 109, triglyceride 290, LDL 41. On Lipitor 80mg daily. Complaining of myalgias, Lipitor was decreased to 40mg in June. reevalaute lipid profile again in 3 mo. If leg cramps dont improve, can further decrease statin and add Repatha or Praluent. History of intolerance to simvastatin as well with myalgias. Diabetes mellitus, followed and managed by primary care team Gastroesophageal reflux disease, patient reports underwent endoscopy and was WNL Ex tobaccoism, stopped smoking recently. Educated on smoking cessation Family history of heart disease. BMI 35, educated on weight loss Nonobstructive carotid artery stenosis per carotid duplex done January 2023. Erectile dysfunction, patient reports he has tried Viagra and Cialis without results. Discussed possible urology referral, will wait at this time. Patient understands that he cannot take these medications if taking nitroglycerin. Thank you for allowing us to participate in the management of Mr. Nuno. This is Eligio Lewis PA-C as a scribe for Dr. Clay Patient was seen and evaluated with Eligio, I interviewed and examined the patient. He still having chest pain waxing and waning, maintained on nitroglycerin drip and requiring morphine injection then the pain recurred later. He has been maintained on Ranexa, had extensive work-up in the past as described above and his stents are patent, no acute EKG changes, cardiac enzymes were negative There is an element of anxiety in addition to small vessel coronary artery disease We will continue monitoring for now and consider repeat cardiac catheterization and IVUS to the LAD ELIGIO LEWIS PA-C Sep 01, 2023 11:08 CITLALLI CLAY MD Sep 01, 2023 14:43
[2023-09-01] MEDS: inSUlin ASPART 1 UNIT/0.01 ML (PER UNIT) SC SCH ×3 (12:22→20:53)
[2023-09-01] MEDS ORDERED: ZINC50TA11 PO (13:15)
[2023-09-01] MEDS ORDERED: AMLO2.5T4 PO (13:15)
[2023-09-01] MEDS ORDERED: RANO500T6 PO (13:15)
[2023-09-01] MEDS ORDERED: CETI10TA49 PO (13:15)
[2023-09-01] MEDS ORDERED: MAGN250T31 PO (13:15)
[2023-09-01] MEDS ORDERED: CHOL-34 PO (13:15)
[2023-09-01] MEDS ORDERED: ATOR40TA70 PO (13:15)
[2023-09-01] MEDS ORDERED: PANTOPRAZOLE 40 MG TABLET PO SCH (13:45)
--- NOTE | 2023-09-01 13:59 | History & Physical ---
JONATHAN WATKINS MD, RESIDENT 09/01/23 1359: HPI History of Present Illness: CC: chest pain Patient is a 48 yo M with a PMHx of diabetes, HTN, CAD s/p stenting in October who presented with significant chest pain. States he was in his usual state of health until when he started noting cough and runny nose. He began having chest pain, left sided radiating into his left arm that was coming and going. He was also noting some vomiting during this time. His cough and congestion eventually resolved over the weekend but he continued to have chest pain. Yesterday night, he states the pain recurred and was quite severe but resolved after taking nitroglycerin. He then had 2 further episodes of significant chest pain this morning, one which resolved with nitro but the second did not. He thus presented to the ED for further evaluation. In the ED, his EKG was normal, troponin was negative however his chest pain did not resolve despite receiving nitro paste, aspirin, morphine and Ativan. He was thus admitted here for further management. Of note, he did test positive for COVID here in the ED. Source: patient Date seen by provider: Sep 01, 2023 Time Seen by Provider: 10:30 Attending Physician Robin Martinez MD PCP Admitting Physician: Butch Koroma MD Attending Physician: Butch Koroma MD Consult Date of Admission Sep 01, 2023 at 09:40 Home Medications Home Medications Reviewed patient Home Medication Reconciliation performed by pharmacy medication reconciliations sound technician and/or nursing. Patients Allergies have been reviewed. Allergies Coded Allergies: No Known Drug Allergies (Unverified , 05/14/19) [id number]-[id number] Hx Patient Social History Marrital Status: Employed/Student: employed Smoking Status: Former Smoker 2nd Hand Smoke Exposure: No Recent Hopitalizations: No Alcohol Use?: No Immunizations Up To Date Influenza Vaccine Up-to-Date: Yes; Up-to-Date Past Medical History Type 2 diabetes Family Medical History Significant Family History: Heart Disease (In father and maternal grandmother), Diabetes Other Significan Family Hx: Colon cancer in mom diagnosed at age 69 Review of Systems ([facility]) Constitutional: No chills, No fever EENTM: No nose congestion Respiratory: No cough, No short of breath Cardiovascular: chest pain; No edema, No palpitations Gastrointestinal: No abdominal pain, No constipation, No diarrhea; nausea; No vomiting Genitourinary: No dysuria Musculoskeletal: No back pain Skin: No dryness Psychiatric/Neurological: Denies Headache Reviewed Test Results Reviewed Test Results Lab Laboratory Tests 09/01/23 06:10: White Blood Count 6.3, Red Blood Count 5.42, Hemoglobin 15.9, Hematocrit 46, Mean Corpuscular Volume 84, Mean Corpuscular Hemoglobin 29, Mean Corpuscular Hemoglobin Concent 35, Red Cell Distribution Width 12.9, Platelet Count 259, Mean Platelet Volume 9.9, Immature Granulocyte % (Auto) 1, Neutrophils (%) (Auto) 55, Lymphocytes (%) (Auto) 31, Monocytes (%) (Auto) 9, Eosinophils (%) (Auto) 4, Basophils (%) (Auto) 1, Neutrophils # (Auto) 3.5, Lymphocytes # (Auto) 2.0, Monocytes # (Auto) 0.6, Eosinophils # (Auto) 0.2, Basophils # (Auto) 0.0, Immature Granulocyte # (Auto) 0.0, Prothrombin Time 12.3, INR Comment 0.9, Activated Partial Thromboplast Time 26, D-Dimer 0.24, Sodium Level 136, Potassium Level 4.1, Chloride Level 98, Carbon Dioxide Level 24, Anion Gap 14, Blood Urea Nitrogen 18, Creatinine 1.20, Estimat Glomerular Filtration Rate 75, BUN/Creatinine Ratio 15, Glucose Level 282H, Calcium Level 10.1, Corrected Calcium 9.9, Magnesium Level 2.3, Total Bilirubin 0.8, Aspartate Amino Transf (AST/SGOT) 28, Alanine Aminotransferase (ALT/SGPT) 46, Alkaline Phosphatase 118, Troponin I < 0.30, Pro-B-Type Natriuretic Peptide < 36.0, Total Protein 8.1, Albumin 4.3 09/01/23 06:14: Influenza Type A (RT-PCR) Not Detected, Influenza Type B (RT-PCR) Not Detected, SARS-CoV-2 RNA (RT-PCR) DetectedH 09/01/23 11:11: Glucometer 174H Radiology Chest xray (09/01/23): IMPRESSION: There is no radiographic evidence of acute cardiopulmonary process. There is mild bibasilar atelectasis. Physical Exam-([facility]) Physical Exam Vital Signs VS - Last 72 Hours, by Label 09/01/23 09/01/23 09/01/23 09/01/23 06:02 08:50 09:30 09:30 Temp 36.3 Pulse 102 90 89 89 Resp 24 18 15 B/P (MAP) 167/89 (115) 154/92 142/89 (106) Pulse Ox 95 96 97 O2 Delivery Room Air Room Air Room Air 09/01/23 09/01/23 09/01/23 09/01/23 09:45 10:15 10:29 10:30 Pulse 87 89 84 82 Resp 15 15 14 B/P (MAP) 125/91 (102) 127/79 (95) 130/92 (105) Pulse Ox 97 97 97 O2 Delivery Room Air Room Air Room Air 09/01/23 09/01/23 09/01/23 09/01/23 10:39 10:45 11:00 11:15 Pulse 84 82 81 81 Resp 17 17 17 B/P (MAP) 130/92 148/88 (108) 126/88 (101) 127/85 (99) Pulse Ox 98 97 97 O2 Delivery Room Air Room Air Room Air 09/01/23 09/01/23 09/01/23 09/01/23 11:30 11:40 11:45 12:00 Temp 36.3 Pulse 81 81 Resp 17 19 B/P (MAP) 121/74 (90) 133/87 (102) Pulse Ox 93 94 94 O2 Delivery Room Air Room Air Room Air 09/01/23 09/01/23 12:00 12:05 Pulse 78 80 Resp 10 B/P (MAP) 122/95 (104) Pulse Ox 93 O2 Delivery Room Air Capillary Refill : Less Than 3 Seconds General Appearance: WD/WN, no apparent distress HEENT: normal ENT inspection Neck: non-tender, supple Respiratory: chest non-tender, lungs clear, no respiratory distress, no access ory muscle use, other (some decreased air flow in the right lung) Cardiovascular: normal peripheral pulses, regular rate, rhythm, no murmur Gastrointestinal: normal bowel sounds, non tender, soft Back: normal inspection Extremities: normal range of motion Neurologic/Psychiatric: alert, oriented x 3 Skin: normal color, warm/dry Assessment/Plan Assessment/Plan Admission Status: Inpatient Order (span 2 midnights) Reason for Inpatient Admission: Persistent chest pain (1) Chest pain Status: Acute Assessment & Plan: Patient presenting with persistent chest pain not relied with medications. EKG unremarkable, troponin negative. Plan: -monitor on telemetry -Cardiology consulted, appreciate recommendations Qualifiers: Qualified Codes: R07.89 - Other chest pain (2) Coronary artery disease with unstable angina pectoris Status: Acute Assessment & Plan: S/p stenting in October, see above. (3) Insulin dependent diabetes mellitus Status: Acute Assessment & Plan: Noted to be hyperglycemic to 282 in the ED. Patient on long acting insulin 42u, short acting meal time insulin 30-40 units, glyburide and farxiga. Plan: -Sliding scale insulin B -Starting long acting insulin -Will restart rest of regimen depending if patient will be NPO or not (4) COVID-19 virus infection Status: Acute Assessment & Plan: No signs of respiratory distress. -Continue supportive care. (5) Hypertension Status: Acute Assessment & Plan: Patient currently on nitro drip for chest pain. Will hold of on restarting antihypertensives for now. BUTCH KOROMA MD 09/01/23 1434: Home Medications Allergies Coded Allergies: No Known Drug Allergies (Unverified , 05/14/19) Supervisory-Addendum Brief Supervisory Addendum I personally performed the fowler portions of the visit, discussed case with resident and concur with resident documentation of history, physical exam, assessment and treatment plan unless otherwise noted. JONATHAN WATKINS MD, RESIDENT Sep 01, 2023 13:59 BUTCH KOROMA MD Sep 01, 2023 14:34
--- NOTE | 2023-09-01 14:09 | Tele-ICU Progress Note ---
Subjective Date Seen by a Provider: Sep 01, 2023 Time Seen by a Provider: 14:04 Subjective/Events-last exam (Tele-ICU Physician , Progress Note ) Service provided via interactive audio and video telecommunications E-CARE s yste to a patient admitted to ICU bed in [facility]. Patient is seen today due to persistent need of ICU care Available chart/ vitals / labs / Images reviewed Video assessment done using teleICU camera, rest of exam as per RN 48 yr old male with pmhx of CAD and chronic stable angina admitted with increasing chest pain. no new EKG changes or elevation of troponin present. no shorness of breath. 1. chest pain with some concern for acs 2. hx of coronary artery disease. 3. Covid-19 posive with no cxr changes. 4. DM2 history 5. tobacco abuse history. 6. GRED Plan. 1. continue iv ntg and wean as tolerated. 2. Cardiology on the case. 3. if no cardiac etiology found check US of GEn razia surgical consult for EGD 4. try PPis Coordination of care with primary care physician and bedside consultants. I am remotely monitoring this patient from Tele icu station in [place]. I am unable to do the bedside exam, and history/physical and pertinent information is taken from other notes in the computer and bedside staff. Certain portions of this document may have been dictated utilizing voice recognition technology such as [employer]. Inherent to this technology, typographical and grammatical errors may exist. As much as I am diligent to identify and correct to these mistakes, some errors may remain in the document. Critical care time devoted to this patient today is approximately is--15 minutes. Sepsis Event Evaluation Height, Weight, BMI Height: 5'11.00" Weight: 220lbs. 0oz. [id number]; 33.00 BMI Method:Stated Exam Exam Patient acknowledged, consented, and participated in this virtual visit which was conducted using real time audio/video Vital Signs Date Time Temp Pulse Resp B/P (MAP) Pulse Ox O2 Delivery O2 Flow Rate FiO2 09/01/23 14:00 75 15 123/70 (87) 97 Room Air 09/01/23 13:00 81 11 106/68 (81) 97 Room Air 09/01/23 12:05 80 09/01/23 12:00 78 10 122/95 (104) 93 Room Air 09/01/23 12:00 94 Room Air 09/01/23 11:45 81 19 133/87 (102) 94 Room Air 09/01/23 11:40 36.3 09/01/23 11:30 81 17 121/74 (90) 93 Room Air 09/01/23 11:15 81 17 127/85 (99) 97 Room Air 09/01/23 11:00 81 17 126/88 (101) 97 Room Air 09/01/23 10:45 82 17 148/88 (108) 98 Room Air 09/01/23 10:39 84 130/92 09/01/23 10:30 82 14 130/92 (105) 97 Room Air 09/01/23 10:29 84 09/01/23 10:15 89 15 127/79 (95) 97 Room Air 09/01/23 09:45 87 15 125/91 (102) 97 Room Air 09/01/23 09:30 89 15 142/89 (106) 97 Room Air 09/01/23 09:30 89 09/01/23 08:50 90 18 154/92 96 Room Air 09/01/23 06:02 36.3 102 24 167/89 (115) 95 Room Air Height & Weight Height: 5'11.00" Weight: 220lbs. 0oz. 99.589298qq; 33.00 BMI Method:Stated General Appearance: No Apparent Distress, Anxious HEENT: PERRL/EOMI Neck: Full Range of Motion, Normal Inspection Respiratory: Chest Non Tender, Lungs Clear, Normal Breath Sounds, No Accessory Muscle Use, No Respiratory Distress, Other (Reproducible left-sided chest pain) Cardiovascular: No Edema, No Gallop, No JVD, No Murmur, Tachycardia Capillary Refill: Less Than 3 Seconds Extremity: Normal Capillary Refill, Normal Inspection, Normal Range of Motion, Non Tender Neurologic/Psychiatric: Alert, Oriented x3, No Motor/Sensory Deficits Skin: Diaphoresis Results Lab Laboratory Tests 09/01/23 06:10 Assessment/Plan Assessment/Plan as above Critical Care: Critically Ill Patient Time spent with patient (mins): 15 ZAY BATISTA MD Sep 01, 2023 14:09
[2023-09-01] MEDS: RANOLAZINE ER 500 MG TABLET PO SCH ×2 (14:47→20:52)
[2023-09-01] MEDS: oxyCODONE IMMEDIATE RELEASE 5 MG TABLET PO PRN (18:01)
[2023-09-01] MEDS ORDERED: LORazepam 1 MG TABLET PO PRN (18:45)
[2023-09-01 19:00] VITALS: BP 137/76
[2023-09-01] MEDS ORDERED: LORazepam 1 MG TABLET ONE (19:19)
[2023-09-02] MEDS: morphine INJ 4 MG/ML 1 ML (VIAL/SYRINGE) IV PRN (02:39)
[2023-09-02] MEDS: ACETAMINOPHEN 500 MG TABLET PO SCH ×2 (02:39→10:05)
[2023-09-02 03:58] LABS: HEMATOCRIT 39 % (40-54); HEMOGLOBIN 13.5 g/dL (13.3-17.7); MEAN CORPUSCULAR HEMOGLOBIN 29 pg (25-34); MEAN CORPUSCULAR HGB CONC 34 g/dL (32-36); MEAN CORPUSCULAR VOLUME 85 fL (80-99); PLATELET COUNT 191 10^3/uL (130-400); WHITE BLOOD COUNT 6.2 10^3/uL (4.3-11.0)
[2023-09-02 04:19] LABS: ALBUMIN 3.7 GM/DL (3.2-4.5); POTASSIUM 4.1 MMOL/L (3.6-5.0)
[2023-09-02 04:20] LABS: CALCIUM 8.9 MG/DL (8.5-10.1)
[2023-09-02 04:22] LABS: TOTAL PROTEIN 6.6 GM/DL (6.4-8.2)
[2023-09-02 04:23] LABS: BILIRUBIN,TOTAL 0.5 MG/DL (0.1-1.0)
[2023-09-02 04:25] LABS: CREATININE SERUM 1.44 MG/DL (0.60-1.30)
[2023-09-02 05:54] LABS: PHOSPHORUS 4.3 MG/DL (2.3-4.7)
[2023-09-02] MEDS: inSUlin ASPART 1 UNIT/0.01 ML (PER UNIT) SC SCH ×2 (05:55→12:06)
[2023-09-02 05:56] LABS: MAGNESIUM 2.2 MG/DL (1.6-2.4)
[2023-09-02] MEDS: oxyCODONE IMMEDIATE RELEASE 5 MG TABLET PO PRN (07:56)
[2023-09-02] MEDS: RANOLAZINE ER 500 MG TABLET PO SCH (07:57)
[2023-09-02] MEDS ORDERED: ANTACID SUSPENSION 30 ML UDC PO PRN (08:00)
--- NOTE | 2023-09-02 08:36 | Cardiology Progress Note ---
Subjective Date Seen by Provider: Sep 02, 2023 Time Seen by Provider: 08:35 Subjective/Events-last exam Patient was seen at bedside, laying down comfortably, still having active chest pain on and off Review of Systems General: No Chills, No Night Sweats, No Fatigue, No Malaise, No Appetite, No Other HEENT: No Head Aches, No Visual Changes, No Eye Pain, No Ear Pain, No Dysphasia, No Sinus Congestion, No Post Nasal Drip, No Sore Throat, No Other Pulmonary: No Dyspnea, No Cough, No Pleuritic Chest Pain, No Other Cardiovascular: Chest Pain; No: Palpitations, Orthopnea, Paroxysmal Noc. Dyspnea, Edema, Lt Headedness, Other Objective-Cardiology Exam Last Set of Vital Signs Vital Signs 09/01/23 09/02/23 09/02/23 20:38 05:00 08:00 Temp 35.7 Pulse 76 Resp 26 B/P (MAP) 153/92 (112) Pulse Ox 98 O2 Delivery Room Air I&O Intake and Output 09/02/23 00:00 Intake Total 1750 ml Output Total 600 ml Balance 1150 ml Intake Oral 750 ml IV Total 1000 ml Output Urine Total 600 ml General: Alert, Oriented X3, Cooperative HEENT: Atraumatic, PERRLA Neck: Supple, No JVD, No Thyromegaly Lungs: Clear to Auscultation, Normal Air Movement Heart: Regular Rate, Normal S1, Normal S2, No Murmurs Abdomen: Normal Bowel Sounds, Soft, No Tenderness, No Hepatosplenomegaly, No Masses Extremities: No Clubbing, No Cyanosis, No Edema, Normal Pulses, No Tenderness/Swelling Skin: No Rashes, No Breakdown, No Significant Lesion Neuro: Normal Gait, Normal Speech, Strength at 5/5 X4 Ext, Normal Tone, Sensation Intact Psych/Mental Status: Mental Status NL, Mood NL Results Lab Laboratory Tests 09/02/23 03:32 A/P-Cardiology Admission Diagnosis Chest pain COVID-19 illness CAD HTN DM Assessment/Plan Chest pain, history of recurrent pain, history of chronic stable angina. EKG showing no acute ST changes, troponin negative. Has had extensive workup in the past as discussed below. Will continue with conservative management. Patient had a cardiac MRI done in January 2023 and it was normal. No findings of inflammation or myocarditis or pericarditis, normal LV size, EF 64%, normal RV size, RV EF 67%, no gadolinium enhancement. Patient did not have good response to Isosorbide or amlodipine, did not relieve the chest pain. I increase Ranexa to 1000 mg twice daily Starting isosorbide 30 mg twice daily COVID-19 illness, patient is laying down comfortable, no significant dyspnea Managed by medical team. Coronary artery disease, Cardiac catheterization carried out on October 24, 2022 with 95% stenosis in the proximal LAD successful stenting using diana point 3.5 x 18 mm with excellent results. The stent was postdilated to 4.0 mm. Cardiac catheterization was done on October 27, 2022 with balloon angioplasty to the diagonal artery through the stent in the LAD then I did balloon angioplasty with 2.5 x 20 trek balloon. Cardiac catheterization was done on November 02, 2022 with stenting of the diagonal artery and the stent was protruding in the LAD, balloon within the LAD stent with excellent results. No residual stenosis Patient continued to have recurrent chest pain and went to [facility] and had another cardiac catheterization October 2022 and I recommended conservative management did not find any significant blockage. Maintained on aspirin and Effient. Hypertension, restart home blood pressure medications and continue to monitor. Hyperlipidemia, lipid profile was done on October 24, 2022 with total cholesterol 109, triglyceride 290, LDL 41. On Lipitor 80mg daily. Complaining of myalgias, Lipitor was decreased to 40mg in June. reevalaute lipid profile again in 3 mo. If leg cramps dont improve, can further decrease statin and add Repatha or Praluent. History of intolerance to simvastatin as well with myalgias. Diabetes mellitus, followed and managed by primary care team Gastroesophageal reflux disease, patient reports underwent endoscopy and was WNL Ex tobaccoism, stopped smoking recently. Educated on smoking cessation Family history of heart disease. BMI 35, educated on weight loss Nonobstructive carotid artery stenosis per carotid duplex done January 2023. Erectile dysfunction, patient reports he has tried Viagra and Cialis without results. Discussed possible urology referral, will wait at this time. Patient understands that he cannot take these medications if taking nitroglycerin. CITLALLI MARTIN MD Sep 02, 2023 08:36
[2023-09-02] MEDS ORDERED: PRASUGREL 10 MG TABLET PO SCH (09:00)
[2023-09-02] MEDS ORDERED: inSUlin DETERMIR 1 UNIT/0.01 ML (CHARGE PER UNIT) SQ SCH (09:00)
[2023-09-02] MEDS ORDERED: NON-FORMULARY MEDICATION 1 EA EA (Insulin Glargine/Lixisenatide (Soliqua 100 Unit-33 Mcg/m SC SCH (09:00)
[2023-09-02] MEDS ORDERED: ASPIRIN enteric coated 81MG TABLET PO SCH (09:00)
[2023-09-02] MEDS ORDERED: ISOSORBIDE MONONITRATE 30 MG TABLET PO SCH (09:00)
[2023-09-02] MEDS ORDERED: ENOXAPARIN 40 MG/0.4 ML SYRINGE SC SCH (09:00)
[2023-09-02] MEDS ORDERED: PANTOPRAZOLE 40 MG TABLET PO SCH (09:00)
--- NOTE | 2023-09-02 09:36 | Tele-ICU Progress Note ---
Subjective Date Seen by a Provider: Sep 02, 2023 Time Seen by a Provider: 09:32 Subjective/Events-last exam (Tele-ICU Physician , Progress Note ) Service provided via interactive audio and video telecommunications [facility] s yste to a patient admitted to ICU bed in [facility]. Patient is seen today due to persistent need of ICU care Available chart/ vitals / labs / Images reviewed Video assessment done using teleICU camera, rest of exam as per RN 48 yr old male with pmhx of CAD and chronic stable angina admitted with increasing chest pain. no new EKG changes or elevation of troponin present. no shorness of breath. 09/02/23 today he is still having some chest pain on and off whch is gripping in nature. troponin WNL. BP stable. Reportedly he will cardiac cath as out patient else where. 1. chest pain with some concern for acs but doubt it 2. hx of coronary artery disease. 3. Covid-19 posive with no cxr changes. 4. DM2 history 5. tobacco abuse history. 6. GERD Plan. 1. He is being started on imdur. 2. Cardiology on the case. 3. if no cardiac etiology found check US of GEN razia surgical consult for EGD 4. increase protonix to 40 mg po bid and add prn maalox Coordination of care with primary care physician and bedside consultants. I am remotely monitoring this patient from Tele icu station in [place]. I am unable to do the bedside exam, and history/physical and pertinent information is taken from other notes in the computer and bedside staff. Certain portions of this document may have been dictated utilizing voice recognition technology such as [employer]. Inherent to this technology, typographical and grammatical errors may exist. As much as I am diligent to identify and correct to these mistakes, some errors may remain in the document. Critical care time devoted to this patient today is approximately is--15 minutes. Sepsis Event Evaluation Height, Weight, BMI Height: 5'11.00" Weight: 220lbs. 0oz. [id number]; 33.30 BMI Method:Stated Exam Exam Patient acknowledged, consented, and participated in this virtual visit which was conducted using real time audio/video Vital Signs Date Time Temp Pulse Resp B/P (MAP) Pulse Ox O2 Delivery O2 Flow Rate FiO2 09/02/23 08:00 98 Room Air 09/02/23 08:00 76 153/92 (112) 96 Room Air 09/02/23 07:24 70 09/02/23 07:00 76 149/86 (107) 97 Room Air 09/02/23 06:00 72 127/84 (98) 96 Room Air 09/02/23 05:00 81 26 141/78 (99) 96 Room Air 09/02/23 04:00 80 10 105/63 (77) 93 Room Air 09/02/23 04:00 97 Room Air 09/02/23 03:00 73 13 126/83 (97) 92 Room Air 09/02/23 02:00 77 7 100/68 (79) 95 Room Air 09/02/23 01:00 72 09/02/23 01:00 74 14 116/73 (87) 92 Room Air 09/02/23 00:00 97 Room Air 09/02/23 00:00 77 96/63 (74) 89 Room Air 09/01/23 23:00 75 137/69 (91) 94 Room Air 09/01/23 22:00 71 17 121/74 (90) 94 Room Air 09/01/23 21:00 74 20 105/67 (80) 93 Room Air 09/01/23 20:38 35.7 09/01/23 20:00 76 11 108/59 (75) 91 Room Air 09/01/23 19:56 35.7 09/01/23 19:43 98 Room Air 09/01/23 19:00 74 137/76 09/01/23 19:00 80 09/01/23 19:00 74 12 146/93 (110) 93 Room Air 09/01/23 18:00 73 16 131/84 (100) 97 Room Air 09/01/23 17:00 75 15 121/78 (92) 96 Room Air 09/01/23 16:47 35.9 09/01/23 16:00 72 28 125/78 (94) 93 Room Air 09/01/23 16:00 94 Room Air 09/01/23 15:00 76 15 128/72 (90) 97 Room Air 09/01/23 14:00 75 15 123/70 (87) 97 Room Air 09/01/23 13:00 81 11 106/68 (81) 97 Room Air 09/01/23 12:05 80 09/01/23 12:00 78 10 122/95 (104) 93 Room Air 09/01/23 12:00 94 Room Air 09/01/23 11:45 81 19 133/87 (102) 94 Room Air 09/01/23 11:40 36.3 09/01/23 11:30 81 17 121/74 (90) 93 Room Air 09/01/23 11:15 81 17 127/85 (99) 97 Room Air 09/01/23 11:00 81 17 126/88 (101) 97 Room Air 09/01/23 10:45 82 17 148/88 (108) 98 Room Air 09/01/23 10:39 84 130/92 09/01/23 10:30 82 14 130/92 (105) 97 Room Air 09/01/23 10:29 84 09/01/23 10:15 89 15 127/79 (95) 97 Room Air 09/01/23 09:45 87 15 125/91 (102) 97 Room Air I & O 09/02/23 07:00 Intake Total 1930 ml Output Total 1900 ml Balance 30 ml Height & Weight Height: 5'11.00" Weight: 220lbs. 0oz. [id number]; 33.30 BMI Method:Stated General Appearance: No Apparent Distress, Anxious HEENT: PERRL/EOMI Neck: Full Range of Motion, Normal Inspection Respiratory: Chest Non Tender, Lungs Clear, Normal Breath Sounds, No Accessory Muscle Use, No Respiratory Distress, Other (Reproducible left-sided chest pain) Cardiovascular: No Edema, No Gallop, No JVD, No Murmur, Tachycardia Capillary Refill: Less Than 3 Seconds Gastrointestinal: normal bowel sounds, non tender, soft Extremity: Normal Capillary Refill, Normal Inspection, Normal Range of Motion, Non Tender Neurologic/Psychiatric: Alert, Oriented x3, No Motor/Sensory Deficits Skin: Diaphoresis Results Lab Laboratory Tests 09/01/23 06:10 09/02/23 03:32 Assessment/Plan Assessment/Plan ABOVE Critical Care: Critically Ill Patient Time spent with patient (mins): 15 ZAY BATISTA MD Sep 02, 2023 09:36
[2023-09-02] MEDS: NITRO DRIP 25000 MCG/D5W 250 ML IV SCH (10:32)
[2023-09-02] MEDS ORDERED: ZINC50TA51 PO (11:09)
[2023-09-02] MEDS ORDERED: CINSULIN PO (11:09)
[2023-09-02] MEDS ORDERED: RANO500T6 PO ×2 (11:09→12:07)
[2023-09-02] MEDS ORDERED: INSU100V16 SQ (11:09)
[2023-09-02] MEDS ORDERED: AMLO2.5T4 PO (11:09)
[2023-09-02] MEDS ORDERED: PRAS10TA10 PO (11:09)
[2023-09-02] MEDS ORDERED: ATOR80TA76 PO (11:09)
[2023-09-02] MEDS ORDERED: MAGN400T39 PO (11:09)
[2023-09-02] MEDS ORDERED: ACET-3075 PO (11:09)
[2023-09-02] MEDS ORDERED: CETI10TA49 PO (11:09)
[2023-09-02] MEDS ORDERED: CHOL-34 PO (11:09)
[2023-09-02] MEDS ORDERED: METF-399 PO (11:15)
--- NOTE | 2023-09-02 12:03 | Discharge Summary ---
JONATHAN WATKINS MD, RESIDENT 09/02/23 1158: Discharge Summary Hospital Course Problems/Diagnosis: (1) Chest pain Status: Acute Assessment & Plan: Patient presenting with persistent chest pain not relied with medications. EKG unremarkable, troponin negative. Patient has been managed on the nitro drip with no improvement in his chest pain. Cardiology is not recommending any interventions at this time but will refer to [facility] for cardiac cath in the outpatient. Otherwise clear to discharge from their standpoint. Plan: -Plan for discharge today. Qualifiers: Qualified Codes: R07.89 - Other chest pain (2) Coronary artery disease with unstable angina pectoris Status: Acute Assessment & Plan: S/p stenting in October, see above. Qualifiers: Qualified Codes: I25.110 - Atherosclerotic heart disease of [place]vas[place]ai coronary artery with unstable angina pectoris (3) Insulin dependent diabetes mellitus Status: Acute Assessment & Plan: Noted to be hyperglycemic to 282 in the ED. Patient on long acting insulin 42u, short acting meal time insulin 30-40 units, glyburide and farxiga. Plan: -Sliding scale insulin B -Started Levemir 21 units twice daily given that Soliqua is not on formulary. Patient okay to restart his medications when discharged home (4) COVID-19 virus infection Status: Acute Assessment & Plan: No signs of respiratory distress. -Continue supportive care. (5) Hypertension Status: Acute Assessment & Plan: Patient currently on nitro drip for chest pain. Will hold of on restarting antihypertensives for now. Qualifiers: Qualified Codes: I10 - Essential (primary) hypertension Hospital Course Date of Admission: Sep 01, 2023 at 09:40 Admission Diagnosis : Family Physician/Provider: Robin Martinez MD Date of Discharge: 09/02/23 Discharge Diagnosis: Unstable angina, COVID Hospital Course: Patient is a 48-year-old male with a past medical history of diabetes, hypertension, CAD status post stenting in October who presented with persistent chest pain. He was in his usual state of health until when he started noting a cough and runny nose. The symptoms eventually resolved but he began having chest pain, left-sided radiating into his left arm that was coming and going. Prior to presenting to the ED, the pain was severe, not improving with nitroglycerin. In the ED, EKG was normal, troponin was negative however his chest pain continued to persist despite Nitropaste, aspirin, morphine and Ativan. He was thus admitted for further management. Of note he also tested positive for COVID. Cardiology was consulted who started patient on a nitro drip. Despite being on the drip, patient's chest pain continued to persist and his blood pressure did start to drop somewhat. Per cardiology, there was no plan to do any intervention during hospitalization however they will refer patie nt to [facility] for cardiac cath in the outpatient. In addition, his COVID diagnosis may also be contributing to his symptoms. Patient was otherwise cleared from a cardiac standpoint and thus he was discharged home in stable condition. Labs and Pending Lab Test: Laboratory Tests 09/01/23 16:20: Glucometer 113H 09/01/23 20:32: Glucometer 214H 09/02/23 03:31: Troponin I < 0.028 09/02/23 03:32: White Blood Count 6.2, Red Blood Count 4.62, Hemoglobin 13.5, Hematocrit 39L, Mean Corpuscular Volume 85, Mean Corpuscular Hemoglobin 29, Mean Corpuscular Hemoglobin Concent 34, Red Cell Distribution Width 12.9, Platelet Count 191, Mean Platelet Volume 10.0, Sodium Level 136, Potassium Level 4.1, Chloride Level 102, Carbon Dioxide Level 23, Anion Gap 11, Blood Urea Nitrogen 24H, Creatinine 1.44H, Estimat Glomerular Filtration Rate 60, BUN/Creatinine Ratio 17, Glucose Level 284H, Calcium Level 8.9, Corrected Calcium 9.1, Phosphorus Level 4.3, Magnesium Level 2.2, Total Bilirubin 0.5, Aspartate Amino Transf (AST/SGOT) 26, Alanine Aminotransferase (ALT/SGPT) 42, Alkaline Phosphatase 93, Total Protein 6.6, Albumin 3.7 09/02/23 05:46: Glucometer 250H 09/02/23 10:34: Glucometer 261H Microbiology 09/01/23 MRSA Screen - Final, Complete MRSA not isolated Home Meds Active Reported Metformin HCl 1,000 Mg Tablet 1,000 Mg PO BID Tylenol Pm Ex-Strength Caplet (Acetaminophen/Diphenhydramine) 500 Mg-25 Mg Tablet 1 Each PO HS PRN [Cinsulin] 2 Ea PO DAILY Zinc (Zinc Amino Acid Chelate) 50 Mg Tablet 50 Mg PO DAILY Vitamin D3 (Cholecalciferol (Vitamin D3)) 25 Mcg (1000 Unit) Tablet 25 Mcg PO DAILY Magnesium (Magnesium Oxide) 400 Mg Magnesium Tablet 400 Mg PO DAILY Zyrtec (Cetirizine HCl) 10 Mg Tablet 10 Mg PO DAILY Atorvastatin Calcium 80 Mg Tablet 40 Mg PO DAILY TAKES OF A (80MG) TABLET Ranolazine ER (Ranolazine) 500 Mg Tab.er.12h 500 Mg PO BID Amlodipine Besylate 2.5 Mg Tablet 2.5 Mg PO DAILY Novolog (Insulin Aspart) 100 Unit/Ml Susp 30-40 Units SQ DAILY Prasugrel HCl 10 Mg Tablet 10 Mg PO DAILY Turmeric (Turmeric Root Extract) 500 Mg Tablet 1,000 Mg PO DAILY TAKES 2 TABLETS Aspirin EC (Aspirin) 81 Mg Tablet.dr 81 Mg PO DAILY Pantoprazole Sodium 40 Mg Tablet.dr 40 Mg PO DAILY LAST FILLED 10/15/2023 #90 90 DAY SUPPLY Nebivolol HCl 10 Mg Tablet 10 Mg PO DAILY Glyburide 5 Mg Tablet 5 Mg PO DAILY LAST FILLED 01/20/2023 #90 90 DAY SUPPLY Coq-10 (Ubidecarenone) 100 Mg Capsule 100 Mg PO DAILY Multivitamin 1 Each Tablet 1 Each PO DAILY Soliqua 100 Unit-33 Mcg/ml Pen (Insulin Glargine/Lixisenatide) 100 Unit-33 Mcg/Ml (3 Ml) Insuln.pen 42 Units SQ DAILY Farxiga (Dapagliflozin Propanediol) 10 Mg Tablet 10 Mg PO DAILY Lisinopril-Hctz 20-12.5 mg Tab (Lisinopril/Hydrochlorothiazide) 20 Mg-12.5 Mg Tablet 2 Ea PO DAILY TAKES 2 TABLETS Assessment/Pt DC Instructions Please see electronic discharge instructions given to patient. Discharge Diet: No Restrictions Activity as Tolerated: Yes Consulations Consultations Cardiology Discharge Physical Examination Allergies: Coded Allergies: No Known Drug Allergies (Unverified , 05/14/19) General Appearance: No Apparent Distress HEENT: PERRL/EOMI Respiratory: Lungs Clear, Normal Breath Sounds, No Accessory Muscle Use, No Respiratory Distress, Other (Chest mildly tender to palpation on the left side) Cardiovascular: Regular Rate, Rhythm, No Edema, No Murmur Gastrointestinal: Normal Bowel Sounds, Non Tender, Soft Skin: Normal Color, Warm/Dry Neurologic/Psychiatric: Alert, Oriented x3 BUTCH KOROMA MD 09/02/23 1602: Discharge Summary Discharge Physical Examination Allergies: Coded Allergies: No Known Drug Allergies (Unverified , 05/14/19) Supervisory-Addendum Brief Supervisory Addendum I personally performed the fowler portions of the visit, discussed case with resident and concur with resident documentation of history, physical exam, assessment and treatment plan unless otherwise noted. JONATHAN WATKINS MD, RESIDENT Sep 02, 2023 11:58 BUTCH KOROMA MD Sep 02, 2023 16:02
[2023-09-02] MEDS ORDERED: ISOS30TA82 PO (12:07)
== END 2023-09-02 13:30 | disposition home or self-care (01) | DRG 302 ==
LOC: EDUNIT# 05:57 → ER FS 05:59 → CSD 09:25 → OBSVTOIN 09:40 → ICU 10:14
PROVIDERS: ADMIT Family Medicine; ATTEND Family Medicine
DX: I25.110 Atherosclerotic heart disease of native coronary artery with unstable angina pectoris (principal); U07.1 COVID-19; E10.65 Type 1 diabetes mellitus with hyperglycemia; I10 Essential (primary) hypertension; E78.00 Pure hypercholesterolemia, unspecified; K21.9 Gastro-esophageal reflux disease without esophagitis; I65.29 Occlusion and stenosis of unspecified carotid artery; N52.9 Male erectile dysfunction, unspecified; Z95.1 Presence of aortocoronary bypass graft; Z87.891 Personal history of nicotine dependence; Z79.84 Long term (current) use of oral hypoglycemic drugs; Z79.4 Long term (current) use of insulin; Z79.82 Long term (current) use of aspirin; Z79.899 Other long term (current) drug therapy
CPT/HCPCS: 36415; 71045; 80053; 82947; 83735; 83880; 84100; 84484; 85025; 85027; 85379; 85610; 85730; 87081; 87636; 93005; 96361; 96372; 96374; 96375